=== PATIENT | male | born 1955 | race Caucasian/White ===

== ENCOUNTER → 2016-05-30 | Day surgery (SDC) | payer BC ==
[2016-05-24 11:21] VITALS: Ht 177.8 cm; Wt 136.4 kg
[~2016-05-30] VITALS: Ht 177.8 cm; Wt 136.4 kg
[~2016-05-30] MED LIST: AMOX500C3 PO; ASPI81TA28 PO; DILT-203 PO; DILT1CAP15 PO; FEXO1TAB49 PO; GLC/500 PO; LIDOCAINE HCL 2% 2 ML VIAL (20MG/ML) ONE; LISI40TA PO; OXYC-57 PO; PROPOFOL IV EMULSION 10 MG/ML 20 ML VIAL IV ONE; TADA10TA PO
--- NOTE | 2016-05-30 08:50 | Endo History and Physical ---
History & Physical Date of Service: May 30, 2016. Chief Complaint: followup colon cancer Referring Physician: Dr. Fly Huff History of Present Illness 60 yo CM who presents for colonoscopy secondary to history of colon cancer. Past Surgical History Hx Cardiac Surgery: No Hx Internal Defibrillator: No Hx Pacemaker: No Hx Abdominal Surgery: Yes (APPY, SPLEEN PROCEDURES X2) Hx of Implantable Prosthesis: No Hx Post-Op Nausea and Vomiting: No Hx Cancer Surgery: Yes (COLON RESECTION) Hx Thoracic Surgery: No Hx Orthopedic: Yes (RT TKA) Hx Urinary Tract Surgery: No Family History Colon CA Social History Smoking Status: Never Smoker Hx Substance Use: No Hx Alcohol Use: No Allergies Coded Allergies: Aminoglycosides (Verified Allergy, Unknown, LOCAL SWELLING AND RASH, ) Bacitracin (Verified Allergy, Unknown, LOCAL SWELLING AND RASH, 05/24/16) Cat Dander (Verified Allergy, Unknown, EYE SWELLING AND SNEEZING, 05/24/16) Codeine (Verified Allergy, Unknown, FLUSHING, GENERAL BODY HOT FLASHES, ) Neomycin (Verified Allergy, Unknown, LOCAL SWELLING AND RASH, 05/24/16) Polymyxin B (Verified Allergy, Unknown, LOCAL SWELLING AND RASH, 05/24/16) Current Medications Reported Home Medications Medications Dose Route/Sig Max Daily Dose Days Date Category Mely Allergy (Fexofenadine Hcl) 180 Mg Tab 1 Tab PO DAILY PRN 05/24/16 Reported Aspirin Ec (Aspirin) 81 Mg Tab 81 Mg PO QAM 05/24/16 Reported Glucophage (Metformin Hcl) 500 Mg Tab 500 Mg PO BID 05/24/16 Reported Diltiazem Cd (Diltiazem Hcl Coated Beads) 240 Mg Cap 1 Tab PO QAM 05/24/16 Reported Zestril (Lisinopril) 40 Mg Tab 40 Mg PO QAM 05/24/16 Reported Vital Signs Weight (Kilograms): 136.36 Height (Feet): 5 Height (Inches): 10 Date Time Temp Pulse Resp B/P Pulse Ox O2 Delivery O2 Flow Rate FiO2 05/30/16 08:41 36.6 66 20 143/84 95 Room Air Physical Exam General Appearance: WD/WN, no apparent distress Respiratory/Chest: Auscultation: breath sounds normal Cardiovascular: Heart Auscultation: RRR Abdomen: Bowel Sounds: normal Inspection & Palpation: soft, non-distended, no tenderness, guarding & rebound Assessment and Plan Assessment: 60 yo CM who presents for colonoscopy secondary to history of colon cancer. Plan: Proceed with colonoscopy.
--- NOTE | 2016-05-30 09:37 | Discharge Instructions ---
Endoscopy Patient Instructions Date / Procedure(s) Performed May 30, 2016. Colonoscopy Allergy Information Coded Allergies: Aminoglycosides (Verified Allergy, Unknown, LOCAL SWELLING AND RASH, ) Bacitracin (Verified Allergy, Unknown, LOCAL SWELLING AND RASH, 05/24/16) Cat Dander (Verified Allergy, Unknown, EYE SWELLING AND SNEEZING, 05/24/16) Codeine (Verified Allergy, Unknown, FLUSHING, GENERAL BODY HOT FLASHES, ) Neomycin (Verified Allergy, Unknown, LOCAL SWELLING AND RASH, 05/24/16) Polymyxin B (Verified Allergy, Unknown, LOCAL SWELLING AND RASH, 05/24/16) Discharge Date / Findings May 30, 2016. Colon polyps Diverticulosis Medication Instructions Stopped Medication(s): no Metformin since Sunday,no ASA since Sunday OK to resume all medications today as prescribed Reported Home Medications Medications Dose Route/Sig Max Daily Dose Days Date Category Mely Allergy (Fexofenadine Hcl) 180 Mg Tab 1 Tab PO DAILY PRN 05/24/16 Reported Aspirin Ec (Aspirin) 81 Mg Tab 81 Mg PO QAM 05/24/16 Reported Glucophage (Metformin Hcl) 500 Mg Tab 500 Mg PO BID 05/24/16 Reported Diltiazem Cd (Diltiazem Hcl Coated Beads) 240 Mg Cap 1 Tab PO QAM 05/24/16 Reported Zestril (Lisinopril) 40 Mg Tab 40 Mg PO QAM 05/24/16 Reported Provider Instructions Activity Restrictions - No exercising or heavy lifting for 24 hours. - Do not drink alcohol the day of the procedure. - Do not drive a car or operate machinery until the day after the procedure. - Do not make any important decisions or sign important papers in 24 hours after the procedure. Following Day: - Return to full activity which may include returning to work/school. Diet Start your diet with liquids and light foods (jello, soup, juice, toast). Then eat your usual diet if not nauseated. Treatment For Common After Affects For mild abdominal pain, bloating, or excessive gas: - Rest - Eat lightly - Lie on right side Follow-Up Information Follow-up with Dr. Fly Huff as scheduled Anesthesia Information What You Should Know You have had a procedure that required some medicine to reduce anxiety and discomfort. This treatment is called moderate sedation. After receiving the treatment, you may be sleepy, but you will be able to breathe on your own. The effects of the treatment may last for several hours. Follow these instructions along with Activity/Diet recommendations noted above: * Do NOT do anything where dizziness or clumsiness would be dangerous. * Rest quietly at home today, then you can be up and about tomorrow. * Have a responsible person stay with you the rest of today. * You may have had an I.V. today. If so, you may take the dressing off later today. Recommendations Call your doctor if: * Trouble breathing * Continuous vomiting for more than 24 hours * Temperature above 101 degrees * Severe abdominal pain or bloating * Pain not relieved by pain medicine ordered * There is increased drainage or redness from any incision * A large amount of rectal bleeding greater than 2-3 tablespoons. (If you had a polyp/s removed or have hemorrhoids, a small amount of blood - from the rectum is to be expected.) * You have any unanswered questions or concerns. IN THE EVENT OF A SERIOUS EMERGENCY, GO TO THE NEAREST EMERGENCY ROOM Your discharge instructions were prepared by provider Willy Bach. Patient Instructions Signature Page Juan Cooper Patient (or Guardian) Signature/Date: I have read and understand the instructions given to me by my caregivers. Caregiver/RN/Doctor Signature/Date: The above-named patient and/or guardian has received patient instructions on this date. + Original Patient Signature Page (only) stays with chart. Please make copy for patient.
--- NOTE | 2016-05-30 09:47 | GI REPORT ---
Procedure Date: 05/30/2016 8:50 AM Procedure: Colonoscopy Indications: High risk colon cancer surveillance: Personal history of colon cancer Medicines: Monitored Anesthesia Care Complications: No immediate complications. Estimated Blood Loss: Estimated blood loss: none. Procedure: Pre-Anesthesia Assessment: - Prior to the procedure, a History and Physical was performed, and patient medications and allergies were reviewed. The patient's tolerance of previous anesthesia was also reviewed. The risks and benefits of the procedure and the sedation options and risks were discussed with the patient. All questions were answered, and informed consent was obtained. Prior Anticoagulants: The patient has taken aspirin, last dose was 10 days prior to procedure. ASA Grade Assessment: III - A patient with severe systemic disease. After reviewing the risks and benefits, the patient was deemed in satisfactory condition to undergo the procedure. After I obtained informed consent, the scope was passed under direct vision. Throughout the procedure, the patient's blood pressure, pulse, and oxygen saturations were monitored continuously. The Scope was introduced through the anus and advanced to the terminal ileum. The colonoscopy was performed without difficulty. The patient tolerated the procedure well. The quality of the bowel preparation was good. The terminal ileum, ileocecal valve, appendiceal orifice, and rectum were photographed. Findings: Two sessile polyps were found in the transverse colon and in the ascending colon. The polyps were 5 to 8 mm in size. These polyps were removed with a hot snare. Resection and retrieval were complete. Multiple small-mouthed diverticula were found in the sigmoid colon. Non-bleeding internal hemorrhoids were found during retroflexion. The hemorrhoids were small. Impression: - Two 5 to 8 mm polyps in the transverse colon and in the ascending colon, removed with a hot snare. Resected and retrieved. - Diverticulosis in the sigmoid colon. - Non-bleeding internal hemorrhoids. Recommendation: - Resume previous diet. - Continue present medications. - Repeat colonoscopy for surveillance based on pathology results. - Return to primary care physician as previously scheduled. Willy Bach DO 05/30/2016 9:47:03 AM This report has been signed electronically. Note Initiated On: 05/30/2016 8:50 AM
--- NOTE | 2016-05-30 09:49 | Anesthesiology Progress Note ---
Anesthesia Post Op Note Date & Time May 30, 2016 at 09:49 Vital Signs Pain Intensity: 3 Vital Signs Past 12 Hours Date Time Temp Pulse Resp B/P Pulse Ox O2 Delivery O2 Flow Rate FiO2 05/30/16 09:42 63 20 143/77 97 Room Air 05/30/16 09:28 89 20 128/75 96 Room Air 05/30/16 08:41 36.6 66 20 143/84 95 Room Air Notes Mental Status: alert / awake / arousable, participated in evaluation Pt Amnestic to Procedure: Yes Nausea / Vomiting: adequately controlled Pain: adequately controlled Airway Patency, RR, SpO2: stable & adequate BP & HR: stable & adequate Hydration State: stable & adequate Anesthetic Complications: no major complications apparent
[2016-05-30 09:57] VITALS: BP 149/88; PULSE 61; O2SAT 95
== END | disposition home or self-care (01) ==
LOC: C.GI 08:17
PROVIDERS: ATTEND Internal Medicine
DX: Z08 Encounter for follow-up examination after completed treatment for malignant neoplasm (principal); D12.2 Benign neoplasm of ascending colon; D12.3 Benign neoplasm of transverse colon; K57.32 Diverticulitis of large intestine without perforation or abscess without bleeding; K64.8 Other hemorrhoids; Z85.038 Personal history of other malignant neoplasm of large intestine; Z80.0 Family history of malignant neoplasm of digestive organs; E11.9 Type 2 diabetes mellitus without complications; I10 Essential (primary) hypertension; F17.220 Nicotine dependence, chewing tobacco, uncomplicated

== ENCOUNTER 2016-05-31 02:31 | Inpatient (IN) | payer BC ==
[~2016-05-31] VITALS: Ht 177.8 cm; Wt 131.6 kg
[~2016-05-31 02:31] MED LIST changes: -AMOX500C3 PO; -DILT1CAP15 PO; -LIDOCAINE HCL 2% 2 ML VIAL (20MG/ML) ONE; -OXYC-57 PO; -PROPOFOL IV EMULSION 10 MG/ML 20 ML VIAL IV ONE; -TADA10TA PO
[2016-05-31] MEDS ORDERED: SODIUM CHLORIDE 0.9% 1000ML 1,000 ML IV STA (02:48)
[2016-05-31] MEDS ORDERED: SODIUM CHLORIDE 0.9% 1000ML 500 ML IV STA (02:48)
--- NOTE | 2016-05-31 03:32 | EMERGENCY ROOM VISIT NOTE ---
History Report prepared by Caden: Benjamin Samaniego Under the Supervision of: Dr. Canelo Chavira M.D. First contact with patient: 02:43 Chief Complaint: RECTAL BLEEDING Stated Complaint: BLEEDING RECTUM S/P COLONOSCOPY 05/30 Nursing Triage Summary: had colonoscopy on 05/30/16. pt reports he has passed blood and blood clots approx 10+ times since. pt c/o abdominal bloating. called MD and told to come for eval. History of Present Illness The patient is a 60 year old male who presents to the Emergency Room with complaints of constant rectal bleeding beginning 12 hours ago. He had a colonoscopy earlier today and had several polyps removed. He states that he went home and relaxed for most of the day. The patient states that after relaxing for a while he defecated and noticed a lot of blood and blood clots in his stool. He estimates that he has had 8-10 bowel movements since he noticed his bleeding. He denies any rectal pain, chest pain, or SOB. The patient is not on any blood thinners other than aspirin. He notes that he withheld his aspirin for his procedure. He notes that he has a history of multiple colonoscopies and has had many polyps removed but has never had similar bleeding. Source of History: patient Onset: Shortly prior to arrival Position: other (rectum) Quality: other (bleeding) Timing: constant Associated Symptoms: No SOB, No chest pain Note: The patient denies any rectal pain. Review of Systems See HPI for pertinent positives & negatives. A total of 10 systems reviewed and were otherwise negative. Past Medical & Surgical Medical Problems: (1) Hemorrhoid (2) HTN (hypertension) (3) Peptic ulcer disease Surgical Problems: (1) H/O splenectomy (2) History of appendectomy Family History No pertinent family history stated. Social History Smoking Status: Never Smoker Marital Status: Housing Status: lives with family Current/Historical Medications Scheduled Aspirin (Aspirin Ec), 81 MG PO QAM Diltiazem Hcl Coated Beads (Diltiazem Cd), 1 TAB PO QAM Lisinopril (Zestril), 40 MG PO QAM Metformin Hcl (Glucophage), 500 MG PO BID Scheduled PRN Fexofenadine Hcl (Mely Allergy), 1 TAB PO DAILY PRN for ALLERGIES Allergies Coded Allergies: Aminoglycosides (Verified Allergy, Unknown, LOCAL SWELLING AND RASH, ) Bacitracin (Verified Allergy, Unknown, LOCAL SWELLING AND RASH, 05/31/16) Cat Dander (Verified Allergy, Unknown, EYE SWELLING AND SNEEZING, 05/31/16) Codeine (Verified Allergy, Unknown, FLUSHING, GENERAL BODY HOT FLASHES, ) Neomycin (Verified Allergy, Unknown, LOCAL SWELLING AND RASH, 05/31/16) Polymyxin B (Verified Allergy, Unknown, LOCAL SWELLING AND RASH, 05/31/16) Physical Exam Vital Signs Date Time Temp Pulse Resp B/P Pulse Ox O2 Delivery O2 Flow Rate FiO2 05/31/16 04:39 67 24 116/76 94 Room Air 05/31/16 03:21 71 05/31/16 03:14 94 Room Air 05/31/16 02:38 36.9 83 20 128/86 95 Room Air Physical Exam GENERAL: Patient is in no acute distress. HEENT: No acute trauma, normocephalic atraumatic, mucous membranes moist, no nasal congestion, no scleral icterus. NECK: No stridor, no adenopathy, no meningismus, trachea is midline. LUNGS: Clear to auscultation bilaterally, no wheeze, no rhonchi, breath sounds equal. HEART: Without murmurs gallops or rubs, regular rate and rhythm. ABDOMEN: Soft, nontender, bowel sounds positive, no hernias, no peritonitis. RECTAL: Maroon colored blood rectally. No external source for bleeding. EXTREMITIES: No cyanosis or edema, full range of motion of all the joints without pain or difficulty, no signs for acute trauma. NEUROLOGIC: Oriented x 3, no acute motor or sensory deficits, no focal weakness. SKIN: No rash, no jaundice, no diaphoresis. Medical Decision & Procedures Laboratory Results 05/31/16 03:19 05/31/16 03:19 Test 05/31/16 03:19 Red Blood Count 4.74 M/uL (4.7-6.1) Mean Corpuscular Volume 86.7 fL (80-100) Mean Corpuscular Hemoglobin 30.0 pg (25-34) Mean Corpuscular Hemoglobin Concent 34.5 g/dl (32-36) RDW Standard Deviation 42.1 fL (36.4-46.3) RDW Coefficient of Variation 13.2 % (11.5-14.5) Mean Platelet Volume 10.8 fL (7.4-10.4) Prothrombin Time 10.8 SECONDS (9.0-12.0) Prothromb Time International Ratio 1.0 (0.9-1.1) Activated Partial Thromboplast Time 28.1 SECONDS (21.0-31.0) Partial Thromboplastin Ratio 1.1 Anion Gap 12.0 mmol/L (3-11) Est Creatinine Clear Calc Drug Dose 117.4 ml/min Estimated GFR () 106.2 Estimated GFR (Non- 91.6 BUN/Creatinine Ratio 21.1 (10-20) Calcium Level 8.5 mg/dl (8.5-10.1) Laboratory results reviewed by me. Medications Administered Medications (Trade) Dose Ordered Sig/Gisele Route Start Time Stop Time Status Last Admin Dose Admin Sodium Chloride 500 ml @ 999 mls/hr Q31M STAT IV 05/31/16 02:48 05/31/16 03:18 DC 05/31/16 02:48 999 MLS/HR Sodium Chloride (Nss 1000ml) 1,000 ml @ 200 mls/hr Q5H STAT IV 05/31/16 02:48 05/31/16 07:47 05/31/16 03:42 200 MLS/HR ED Course 0243: The patient was evaluated in room B11B. A complete history and physical exam was performed. 0248: Ordered NSS 1000 ml @ 200 mL/hr IV, NSS 500 mL @ 999 mL/hr IV. 0403: Upon reexamination the patient is resting comfortably. I discussed results and treatment plan with the patient. He verbalizes agreement and understanding. The patient will be evaluated for further management. Medical Decision The patient is a 60 year old male who presents to the ED with complaints of rectal bleeding. Differential diagnoses considered include bleeding from polyp site, anemia, electrolyte imbalance, coagulopathy, dehydration, hemorrhoids, as well as other etiologies were considered. There is no leukocytosis or concerning anemia. No significant electrolyte abnormality or kidney failure. There is no coagulopathy. On exam, the patient had dark maroon colored blood rectally, no external source for bleeding. He was not in pain, he was not hypotensive or tachycardic. There was no chest pain and there was no dyspnea or weakness. The patient received IV saline, he was kept nothing by mouth. I spoke with the on-call GI physician. Admission/observation was warranted. I talked to case management. I talked to the patient about all my findings. The on-call hospitalist was consulted. Consults Time Called: 024 Consulting Physician: Dr. Radha GonzalezGI Returned Call: 035 Discussed the patient's case. Dr. Garcia recommends that the patient be observed to see if he stops bleeding. If he does not, a follow up colonoscopy will be conducted. Additional Consults: Time Called: 040 Consulted Physician: [facility]. [facility] [place] Returned Call: 040 Additional Comments: Discussed the patient's case. The patient will be evaluated for further management. Impression Primary Impression: GI bleed Additional Impression: S/P colonoscopy Scribe Attestation The scribe's documentation has been prepared under my direction and personally reviewed by me in its entirety. I confirm that the note above accurately reflects all work, treatment, procedures, and medical decision making performed by me. Departure Information Dispostion Being Evaluated By Hospitalist Referrals Fly Huff M.D. (PCP) Patient Instructions My [facility] Problem Qualifiers
[2016-05-31 03:35] LABS: HEMATOCRIT 41.1 % (42-52); MEAN CELL VOLUME 86.7 fL (80-100); MEAN CORPUSCULAR HGB CONC 34.5 g/dl (32-36); MEAN PLATELET VOLUME 10.8 fL (7.4-10.4); PLATELET COUNT 368 K/uL (130-400); RED BLOOD COUNT 4.74 M/uL (4.7-6.1); WHITE BLOOD COUNT 8.51 K/uL (4.8-10.8)
[2016-05-31 03:45] LABS: PARTIAL THROMBOPLASTIN RATIO 1.1; PROTHROMBIN TIME (PATIENT) 10.8 SECONDS (9.0-12.0)
[2016-05-31 03:50] LABS: BUN/CREATININE RATIO 21.1 (10-20); CALCIUM 8.5 mg/dl (8.5-10.1); CREATININE 0.89 mg/dl (0.60-1.40); POTASSIUM 4.2 mmol/L (3.5-5.1)
[2016-05-31] MEDS ORDERED: ONDANSETRON INJ 2 MG/ML 2 ML VIAL IV PRN (06:30)
[2016-05-31] MEDS ORDERED: ACETAMINOPHEN 325 MG TAB PO PRN (06:30)
--- NOTE | 2016-05-31 06:37 | History and Physical ---
History & Physical Date & Time of Service: May 31, 2016 at 06:29 Chief Complaint: Bleeding Rectum S/P Colonoscopy 05/30 Primary Care Physician: Fly Huff M.D. History of Present Illness Source: patient 60 y/o M Hx colon CA, NIDDM who had undergone a colonoscopy with removal of 2 polyps one day prior. Pt developed copious BRBPR following D/C home and presented for evaluation. Denies abd pain, SOB, light head. His Hb is currently WNL. He is admitted by request of GI for active bleeding. Past Medical/Surgical History Medical Problems: (1) Hemorrhoid Status: Resolved (2) HTN (hypertension) Status: Chronic (3) Peptic ulcer disease Status: Chronic 4) NIDDM 5) Colon CA - surgically resected Surgical Problems: (1) H/O splenectomy Status: Resolved (2) History of appendectomy Status: Resolved 3) R TKA 4) Colonoscopy with polypectomy x 2 Social History Smoking Status: Never Smoker Marital Status: Immunizations History of Influenza Vaccine: No History of Tetanus Vaccine?: Yes History of Pneumococcal: No History of Hepatitis B Vaccine: Unknown Multi-Drug Resistant Organisms History of MDRO: No Allergies Coded Allergies: Aminoglycosides (Verified Allergy, Unknown, LOCAL SWELLING AND RASH, ) Bacitracin (Verified Allergy, Unknown, LOCAL SWELLING AND RASH, 05/31/16) Cat Dander (Verified Allergy, Unknown, EYE SWELLING AND SNEEZING, 05/31/16) Codeine (Verified Allergy, Unknown, FLUSHING, GENERAL BODY HOT FLASHES, ) Neomycin (Verified Allergy, Unknown, LOCAL SWELLING AND RASH, 05/31/16) Polymyxin B (Verified Allergy, Unknown, LOCAL SWELLING AND RASH, 05/31/16) Home Medications Scheduled Aspirin (Aspirin Ec), 81 MG PO QAM Diltiazem Hcl Coated Beads (Diltiazem Cd), 1 TAB PO QAM Lisinopril (Zestril), 40 MG PO QAM Metformin Hcl (Glucophage), 500 MG PO BID Scheduled PRN Fexofenadine Hcl (Mely Allergy), 1 TAB PO DAILY PRN for ALLERGIES Review of Systems Constitutional: No chills, No fever, No sweats Eyes: No eye pain, No worsening of vision ENT: No hearing loss, No nasal symptoms, No unusual epistaxis Respiratory: No cough, No sputum, No wheezing Cardiovascular: No PND, No chest pain, No edema, No orthopnea Abdomen: + GI bleeding, No nausea, No pain, No vomiting Musculoskeletal: No joint pain, No muscle pain Genitourinary - Male: No dysuria, No hematuria Neurologic: No memory loss, No paralysis Psychiatric: No depression symptoms Endocrine: No fatigue Hematologic / Lymphatic: No abnormal bleeding/bruising Integumentary: No rash Allergic / Immunologic: No environmental allergies Physical Exam Vital Signs Date Time Temp Pulse Resp B/P Pulse Ox O2 Delivery O2 Flow Rate FiO2 05/31/16 04:39 67 24 116/76 94 Room Air 05/31/16 03:21 71 05/31/16 03:14 94 Room Air 05/31/16 02:38 36.9 83 20 128/86 95 Room Air General Appearance: WD/WN, no apparent distress Head: normocephalic, atraumatic Eyes: normal inspection, EOMI ENT: normal ENT inspection, pharynx normal Neck: supple, no JVD Respiratory/Chest: chest non-tender, lungs clear, normal breath sounds, no respiratory distress, no accessory muscle use Cardiovascular: regular rate, rhythm, no edema, no gallop, no JVD, no murmur, normal peripheral pulses Abdomen/GI: normal bowel sounds, non tender, soft Extremities/Musculoskelatal: normal inspection, no calf tenderness, normal capillary refill, no pedal edema, normal range of motion Neurologic/Psych: diamond picker II-XII nml as tested, no motor/sensory deficits, alert, normal mood/affect, normal reflexes, oriented x 3 Skin: normal color, warm/dry, no rash Diagnostics Laboratory Results Results Past 24 Hours Test 05/31/16 03:19 Range/Units White Blood Count 8.51 4.8-10.8 K/uL Red Blood Count 4.74 4.7-6.1 M/uL Hemoglobin 14.2 14.0-18.0 g/dL Hematocrit 41.1 42-52 % Mean Corpuscular Volume 86.7 80-100 fL Mean Corpuscular Hemoglobin 30.0 25-34 pg Mean Corpuscular Hemoglobin Concent 34.5 32-36 g/dl RDW Standard Deviation 42.1 36.4-46.3 fL RDW Coefficient of Variation 13.2 11.5-14.5 % Platelet Count 368 130-400 K/uL Mean Platelet Volume 10.8 7.4-10.4 fL Prothrombin Time 10.8 9.0-12.0 SECONDS Prothromb Time International Ratio 1.0 0.9-1.1 Activated Partial Thromboplast Time 28.1 21.0-31.0 SECONDS Partial Thromboplastin Ratio 1.1 Sodium Level 141 136-145 mmol/L Potassium Level 4.2 3.5-5.1 mmol/L Chloride Level 108 98-107 mmol/L Carbon Dioxide Level 21 21-32 mmol/L Anion Gap 12.0 3-11 mmol/L Blood Urea Nitrogen 19 7-18 mg/dl Creatinine 0.89 0.60-1.40 mg/dl Est Creatinine Clear Calc Drug Dose 117.4 ml/min Estimated GFR () 106.2 Estimated GFR (Non- 91.6 BUN/Creatinine Ratio 21.1 10-20 Random Glucose 161 70-99 mg/dl Calcium Level 8.5 8.5-10.1 mg/dl Impression Assessment and Plan 60 y/o M Hx colon CA, NIDDM who had undergone a colonoscopy with removal of 2 polyps one day prior. Pt developed copious BRBPR following D/C home and presented for evaluation. Denies abd pain, SOB, light head. His Hb is currently WNL. He is admitted by request of GI for active bleeding. 1) GI bleed - post polypectomy - NPO, observe on med floor - serial Hb - GI consult 2) NIDDM - slding scale in hospital 3) HTN - cont Lisinopril and Diltiazem with parameters Total time for this admit inclusing review of records, labs, med rec - discussion with pt and ER attending 32 min Level of Care Med/Surg Resuscitation Status FULL RESUSCITATION VTE Prophylaxis VTE Risk Assessment Done? Y/N: Yes Risk Level: Moderate Given or contraindicated: SCD's, Contraindicated
[2016-05-31 06:49] VITALS: O2SAT 95; Ht 177.8 cm; Wt 131.6 kg
[2016-05-31 07:22] VITALS: O2SAT 95
[2016-05-31] MEDS: SODIUM CHLORIDE 0.9% 1000ML 1,000 ML IV SCH ×2 (07:30→17:16)
[2016-05-31 07:36] VITALS: BP 115/67; PULSE 72; TEMP 36.9; O2SAT 93
[2016-05-31] MEDS ORDERED: DEXTROSE 50% 50 ML SYR IV PRN (08:15)
[2016-05-31] MEDS ORDERED: GLUCOSE 40% GEL 15 GM TUBE PO PRN (08:15)
[2016-05-31] MEDS ORDERED: GLUCOSE 10 TABS/TUBE PO PRN (08:15)
[2016-05-31] MEDS ORDERED: GLUCAGON FOR INJ 1 MG VIAL SQ PRN (08:15)
[2016-05-31] MEDS: LISINOPRIL 40 MG TAB PO SCH (10:16)
[2016-05-31] MEDS: DILTIAZEM HCL 240 MG CAPCR PO SCH (10:17)
--- NOTE | 2016-05-31 10:46 | Gastrointestinal Consultation ---
Gastrointestinal Consultation Date of Consultation: May 31, 2016 Attending Physician: Dr. Manning Consulting Physician: Dr. Bach/LÁZARO Obrien Reason for Consultation: Rectal bleeding History of Present Illness Patient is a 60 year old male with a history of rectal cancer who underwent a screening colonoscopy yesterday by Dr. Bach as an outpatient. He did have two small polyps removed (between 5-8 mm) during the procedure, one in the transverse and one in the ascending colon. Patient reports that after the procedure, he did eat a hoagie sandwich and soon after developed some mild abdominal cramping and passed a bowel movement that had some bright red blood mixed with blood clots. The amount was small. Throughout the evening, he reports that he passed a blood and clots approximately every two hours. He was concerned about continued bleeding and presented to the ER for further evaluation of symptoms. Upon arrival, he was noted to have a hemoglobin of 14.2 with a repeat hemoglobin of 13.5 this morning. The patient states the last episode of bleeding was at approximately 0300 this morning. Currently, he denies any abdominal pain, rectal bleeding, nausea or vomiting, fever or chills or other complaints. He has remained NPO since arrival. Upon further questioning , the patient denies any anticoagulation therapy or NSAID use. He is only taking a low dose aspirin daily. Past Medical/Surgical History Medical Problems: (1) GI bleed Status: Acute Social History Problems: (1) S/P colonoscopy Status: Acute Past Medical History: 1. Bronchitis 2. Conjunctivitis 3. Diabetes mellitus 4. Hypercholesterolemia 5. Hypertension 6. Sexual dysfunction 7. Rectal cancer 8. PUD 9. Tubular adenomas Past Surgical History: 1. Appendectomy 2. Knee replacement surgery 3. Colonoscopy 4. Rectal surgery 5. Small bowel resection 6. Splenectomy 7. Umbilical hernia repair Family History Negative for GI malignancy and IBD Social History Smoking Status: Never Smoker Alcohol Use: none Drug Use: none Marital Status: Housing Status: lives with family Occupation Status: retired Allergies Coded Allergies: Aminoglycosides (Verified Allergy, Unknown, LOCAL SWELLING AND RASH, ) Bacitracin (Verified Allergy, Unknown, LOCAL SWELLING AND RASH, 05/31/16) Cat Dander (Verified Allergy, Unknown, EYE SWELLING AND SNEEZING, 05/31/16) Codeine (Verified Allergy, Unknown, FLUSHING, GENERAL BODY HOT FLASHES, ) Neomycin (Verified Allergy, Unknown, LOCAL SWELLING AND RASH, 05/31/16) Polymyxin B (Verified Allergy, Unknown, LOCAL SWELLING AND RASH, 05/31/16) Current Medications Home Meds and Scripts Medications Dose Route/Sig Max Daily Dose Days Date Category Mely Allergy (Fexofenadine Hcl) 180 Mg Tab 1 Tab PO DAILY PRN 05/24/16 Reported Aspirin Ec (Aspirin) 81 Mg Tab 81 Mg PO QAM 05/24/16 Reported Glucophage (Metformin Hcl) 500 Mg Tab 500 Mg PO BID 05/24/16 Reported Diltiazem Cd (Diltiazem Hcl Coated Beads) 240 Mg Cap 1 Tab PO QAM 05/24/16 Reported Zestril (Lisinopril) 40 Mg Tab 40 Mg PO QAM 05/24/16 Reported Review of Systems See HPI for pertinent positives & negatives. A total of 10 systems reviewed and were otherwise negative. Physical Exam Date Time Temp Pulse Resp B/P Pulse Ox O2 Delivery O2 Flow Rate FiO2 05/31/16 07:36 36.9 72 18 115/67 93 Room Air 05/31/16 07:22 81 14 109/75 95 05/31/16 06:49 95 Room Air 05/31/16 06:48 72 05/31/16 06:34 79 14 110/57 95 Room Air 05/31/16 04:39 67 24 116/76 94 Room Air 05/31/16 03:21 71 05/31/16 03:14 94 Room Air 05/31/16 02:38 36.9 83 20 128/86 95 Room Air General Appearance: WD/WN, no apparent distress Eyes: EOMI ENT: hearing grossly normal Neck: supple Respiratory/Chest: lungs clear, normal breath sounds, no respiratory distress Cardiovascular: regular rate, rhythm, no gallop, no murmur Abdomen: normal bowel sounds, non tender, soft Extremities: normal inspection Neurologic/Psych: alert, normal mood/affect, oriented x 3 Skin: no jaundice, warm/dry Laboratory Results Last 24 Hours Test 05/31/16 03:19 05/31/16 06:45 05/31/16 08:07 White Blood Count 8.51 K/uL Red Blood Count 4.74 M/uL Hemoglobin 14.2 g/dL 13.5 g/dL Hematocrit 41.1 % Mean Corpuscular Volume 86.7 fL Mean Corpuscular Hemoglobin 30.0 pg Mean Corpuscular Hemoglobin Concent 34.5 g/dl RDW Standard Deviation 42.1 fL RDW Coefficient of Variation 13.2 % Platelet Count 368 K/uL Mean Platelet Volume 10.8 fL Prothrombin Time 10.8 SECONDS Prothromb Time International Ratio 1.0 Activated Partial Thromboplast Time 28.1 SECONDS Partial Thromboplastin Ratio 1.1 Sodium Level 141 mmol/L Potassium Level 4.2 mmol/L Chloride Level 108 mmol/L Carbon Dioxide Level 21 mmol/L Anion Gap 12.0 mmol/L Blood Urea Nitrogen 19 mg/dl Creatinine 0.89 mg/dl Est Creatinine Clear Calc Drug Dose 117.4 ml/min Estimated GFR () 106.2 Estimated GFR (Non- 91.6 BUN/Creatinine Ratio 21.1 Random Glucose 161 mg/dl Calcium Level 8.5 mg/dl Hepatitis C Antibody Screen NEG Bedside Glucose 131 mg/dl Impression Patient is a 60 year old male with a history of tubular adenomas and rectal cancer presenting with rectal bleeding status post colonoscopy yesterday with polypectomy most consistent with post-polypectomy bleeding. Plan 1. Keep NPO until evaluated by Dr. Bach later today. 2. Bleeding has resolved. Continue to monitor for any returning symptoms or significant anemia. 3. No plan for repeat colonoscopy unless returning bleeding or notable drop in H &H. Agree with LÁZARO Obrien as above Abd: Soft, NT, ND, +BS No Overt bleeding at this time Advance diet as tolerated
[2016-05-31] MEDS: INSULIN ASPART 100 UNITS/ML 3 ML PEN SC SCH ×2 (13:16→18:00)
--- NOTE | 2016-05-31 14:39 | Progress Note ---
Progress Note pt seen and examed, 60 y/o M Hx colon CA, NIDDM who had undergone a colonoscopy with removal of 2 polyps one day prior. Pt developed copious BRBPR following D/C home and presented for evaluation. Denies abd pain, SOB, light head. His Hb is currently WNL. Sitting up in chair, no dizziness no any other complaining 1) GI bleed - post polypectomy - NPO, observe on med floor - serial Hb - GI consulted 2) NIDDM - slding scale in hospital 3) HTN - cont Lisinopril and Diltiazem with parameters \
[2016-05-31 15:00] VITALS: BP 126/77; PULSE 59; TEMP 36.3; O2SAT 94
--- NOTE | 2016-05-31 15:00 | Hospitalist Progress Note ---
Hospitalist Progress Note Date of Service May 31, 2016. Subjective Pt evaluation today including: conversation w/ patient, physical exam, chart review, lab review PO Intake: NPO Voiding: no voiding problems Patient reports feeling well. He states that he has not had another bowel movement or jan blood since around 3 am this morning. He denies any weakness or fatigue. The patient denies fevers, chills, sweats, lightheadedness, loss of consciousness, chest pain, palpitations, claudication, cough, wheezing, shortness of breath, nausea, vomiting, abdominal pain, diarrhea, jan blood, dysuria, hematuria, urinary retention, paralysis, weakness, numbness and tingling. Additional Comments: See HPI for pertinent positives and negatives. All other systems reviewed and negative. Objective Vital Signs Date Time Temp Pulse Resp B/P Pulse Ox O2 Delivery O2 Flow Rate FiO2 05/31/16 07:36 36.9 72 18 115/67 93 Room Air 05/31/16 07:22 81 14 109/75 95 05/31/16 06:49 95 Room Air 05/31/16 06:48 72 05/31/16 06:34 79 14 110/57 95 Room Air 05/31/16 04:39 67 24 116/76 94 Room Air 05/31/16 03:21 71 05/31/16 03:14 94 Room Air 05/31/16 02:38 36.9 83 20 128/86 95 Room Air Physical Exam General Appearance: WD/WN, no apparent distress, + obese (morbidly) Eyes: normal inspection, PERRL, EOMI ENT: normal ENT inspection, hearing grossly normal, pharynx normal Neck: supple, no JVD, trachea midline Respiratory/Chest: lungs clear, normal breath sounds, no respiratory distress, + decreased breath sounds Cardiovascular: regular rate, rhythm, no gallop, no murmur Abdomen: normal bowel sounds, non tender, soft Extremities: normal range of motion, normal inspection, no pedal edema Neurologic/Psychiatric: alert, normal mood/affect, oriented x 3 Skin: normal color, warm/dry, no rash Laboratory Results Last 24 Hours Test 05/31/16 03:19 05/31/16 06:45 05/31/16 08:07 05/31/16 11:54 White Blood Count 8.51 K/uL Red Blood Count 4.74 M/uL Hemoglobin 14.2 g/dL 13.5 g/dL Hematocrit 41.1 % Mean Corpuscular Volume 86.7 fL Mean Corpuscular Hemoglobin 30.0 pg Mean Corpuscular Hemoglobin Concent 34.5 g/dl RDW Standard Deviation 42.1 fL RDW Coefficient of Variation 13.2 % Platelet Count 368 K/uL Mean Platelet Volume 10.8 fL Prothrombin Time 10.8 SECONDS Prothromb Time International Ratio 1.0 Activated Partial Thromboplast Time 28.1 SECONDS Partial Thromboplastin Ratio 1.1 Sodium Level 141 mmol/L Potassium Level 4.2 mmol/L Chloride Level 108 mmol/L Carbon Dioxide Level 21 mmol/L Anion Gap 12.0 mmol/L Blood Urea Nitrogen 19 mg/dl Creatinine 0.89 mg/dl Est Creatinine Clear Calc Drug Dose 117.4 ml/min Estimated GFR () 106.2 Estimated GFR (Non- 91.6 BUN/Creatinine Ratio 21.1 Random Glucose 161 mg/dl Calcium Level 8.5 mg/dl Hepatitis C Antibody Screen NEG Bedside Glucose 131 mg/dl 105 mg/dl Test 05/31/16 12:23 Hemoglobin 13.5 g/dL Assessment and Plan 60 y/o male with a history of colon cancer, DM II, HTN, hemorrhoids, and peptic ulcer disease presents to the ED on 05/31 with rectal bleeding. The patient had a screening colonoscopy done as an outpatient on 05/[address] Bach. The patient had some polyps removed at that time. He went home and later developed diarrhea with both bright red blood and dark, clotted blood. He states that he had about 8-10 bowel movements in the 12 hours following the procedure, prompting him to be evaluated in the ED. Pt was not tachycardic or hypotensive upon arrival, and initial Hgb was stable at 14.2. Rectal bleeding -Admitted to med/surg -Check serial H&H q6h x 4 -GI consulted, appreciate recs: pt will be kept NPO until Dr. Bach evaluates today. No repeat colonoscopy at this time unless bleeding starts again or there is a significant drop in H&H -Pt NPO for now -IVF hydration with NSS at 100 cc/hr -Hold ASA Diabetes mellitus type 2--Last HgbA1c checked 01/05/16 was 7.2 -Hold metformin -Insulin sliding scale -Check BSGs q ac and qhs -Recheck HgbA1c HTN--stable -Continue lisinopril 40 mg PO qd and diltiazem 240 mg PO qd GI prophylaxis -Maalox Max 15 mL PO q4h prn dyspepsia -Milk of magnesia 30 mL PO q6h prn constipation -Miralax 17 gm PO qd prn constipation -Zofran 4 mg IV q6h prn nausea DVT prophylaxis -JOSE russo and SCDs Code Status -Level I, FULL RESUSCITATION STATUS
[2016-05-31 22:59] VITALS: BP 121/79; PULSE 57; TEMP 36.5; O2SAT 96
[2016-05-31] MEDS ORDERED: NURSING VERBAL MED ORDER ONE (23:00)
[2016-06-01] MEDS: SODIUM CHLORIDE 0.9% 1000ML 1,000 ML IV SCH (02:45)
[2016-06-01 07:07] VITALS: BP 122/73; PULSE 55; TEMP 36.4; O2SAT 95
[2016-06-01] MEDS ORDERED: INSULIN ASPART 100 UNITS/ML 3 ML PEN SC SCH (08:00)
[2016-06-01] MEDS: LISINOPRIL 40 MG TAB PO SCH (08:45)
[2016-06-01] MEDS: DILTIAZEM HCL 240 MG CAPCR PO SCH (08:46)
--- NOTE | 2016-06-01 09:20 | Discharge Instructions ---
Discharge Instructions Admission Reason for Admission: Gi Bleed Discharge Discharge Diagnosis / Problem: post-polypectomy bleeding Discharge Goals Goal(s): Decrease discomfort, Improve function, Increase independence, Improve disease control, Improve nutritional status, Learn about illness, Diagnostic testing, Therapeutic intervention, Prevent Disease Progression, Specific goals Activity Recommendations Activity Limitations: resume your previous activity Lifting Limitations: none Exercise/Sports Limitations: none May Resume Sexual Activity: when tolerated Shower/Bathe: no limitations Driving or Machine Use: no limitations . Instructions / Follow-Up Instructions / Follow-Up you have rectal bleeding status post colonoscopy which is resolved you have a history of tubular adenomas and rectal cancer and recent colonoscope by Dr. Bach, please follow up with him as instructed, also need to follow up his instruction about how long to continue hold of aspirin, I would recommend to continue hold Aspirin until you see by your primary care physician in 5-7 days - you need to follow up with your primary care physician in 1 week, - take medication as instructed, never overdose or any misuse, or take with alcohol, because misuse of medicine may cause organ damage or , call your primary care physician if have questions of medicaitons. - call your primary care physician OR go to local emergency room if has any fever/chill, chest pain, shortness of breathing, dizziness, rectal bleeding, nausea/vomiting/abdominal pain, facial droop/slurry speech/local weakness, or if has any questions. - fall precaution - diet as instructed - you need to follow up with your subspecialist - you should understand that it is important to follow up the above instruction , and "not following the above instruction" may cause delayed or missed care of your medical conditions which may cause permanent organ damage and even . Current Hospital Diet Patient's current hospital diet: Diabetes Type 2 Diet Discharge Diet Recommended Diet: Diabetes Type 2 Diet Procedures Procedures Performed: no Pending Studies Studies pending at discharge: no Medical Emergencies . Who to Call and When: Medical Emergencies: If at any time you feel your situation is an emergency, please call 911 immediately. . Non-Emergent Contact Non-Emergency issues call your: Primary Care Provider, Assistant Quality Manager . . "Provider Documentation" section prepared by Donny Frey. VTE Core Measure Inpt VTE Proph given/why not?: SCD's, Contraindicated
--- NOTE | 2016-06-01 09:24 | Discharge Summary ---
Discharge Summary Admission Date: May 31, 2016 at 06:24 Discharge Date: Jun 01, 2016 Discharge Disposition: Home Principal Diagnosis: rectal bleeding status post colonoscopy Problems/Secondary Diagnoses: history of tubular adenomas and rectal cancer and recent colonoscope DMII Immunizations: Have You Had Influenza Vaccine: No History of Tetanus Vaccine?: Yes History of Pneumococcal: No History of Hepatitis B Vaccine: Unknown Procedures: no Consultations: GI Medication Reconciliation Continued Medications: Aspirin (Aspirin Ec) 81 Mg Tab 81 MG PO QAM Diltiazem Hcl Coated Beads (Diltiazem Cd) 240 Mg Cap 1 TAB PO QAM Fexofenadine Hcl (Mely Allergy) 180 Mg Tab 1 TAB PO DAILY PRN for ALLERGIES Lisinopril (Zestril) 40 Mg Tab 40 MG PO QAM Metformin Hcl (Glucophage) 500 Mg Tab 500 MG PO BID Discharge Exam Out of bed, and walk, no dizziness, refuse all the lab and blood testing from last night, no other complaint, no more rectal bleeding, is passing gas Review of Systems: Constitutional: No chills, No fatigue, No fever, No problem reported, No sweats, No weakness, No weight loss Eyes: No diplopia, No discharge, No eye pain, No problem reported, No redness, No worsening of vision ENT: No dental problems, No hearing loss, No nasal symptoms, No problem reported, No sore throat, No tinnitus, No trouble swallowing, No unusual epistaxis Respiratory: No cough, No dyspnea at rest, No dyspnea on exertion, No hemoptysis, No problem reported, No shortness of breath, No sputum, No wheezing Cardiovascular: No PND, No chest pain, No claudication, No edema, No orthopnea, No palpitations, No problem reported Abdomen: No GI bleeding, No constipation, No diarrhea, No nausea, No pain, No problem reported, No vomiting Musculoskeletal: No calf pain, No joint pain, No muscle pain, No problem reported, No swelling Genitourinary - Male: No dysuria, No hematuria, No impotence, No lesions, No penile discharge, No problem reported, No urinary frequency, No urinary hesitancy, No urinary incontinence, No urinary retention, No urinary urgency Neurologic: No balance problems, No memory loss, No numbness/tingling, No paralysis, No problem reported, No vertigo, No weakness Psychiatric: No anhedonism, No anxiety, No depression symptoms, No insomnia , No problem reported, No substance abuse Endocrine: No excessive thirst, No excessive urination, No fatigue, No problem reported Hematologic / Lymphatic: No abnormal bleeding/bruising, No clotting problems , No night sweats, No problem reported, No swollen lymph nodes Integumentary: No bleeding, No color change, No itch, No new/changing skin lesions, No problem reported, No rash Physical Exam: General Appearance: WD/WN, no apparent distress, + obese, + pertinent finding (color looks good, no any pale or anemia signs) Eyes: normal inspection, PERRL, EOMI ENT: normal ENT inspection, hearing grossly normal Neck: supple, no adenopathy Respiratory/Chest: chest non-tender, normal breath sounds, no respiratory distress, no accessory muscle use, + decreased breath sounds Cardiovascular: regular rate, rhythm, no edema, no gallop, no JVD Abdomen / GI: normal bowel sounds, non tender, no organomegaly, no pulsatile mass Extremities: normal inspection, no calf tenderness, normal capillary refill , no pedal edema, normal range of motion Neurologic/Psychiatric: scientific writer II-XII nml as tested, no motor/sensory deficits , alert, normal mood/affect, normal reflexes, oriented x 3 Skin: normal color, warm/dry, no rash Hospital Course 60 y/o male with a history of colon cancer, DM II, HTN, hemorrhoids, and peptic ulcer disease presents to the ED on 05/31 2016 with rectal bleeding. He was admitted after the ER visit The patient with history of tubular adenomas and rectal cancer and recent colonoscope had a screening colonoscopy done as an outpatient on 05/[address] Bach. The patient had some polyps removed at that time. He went home and later developed diarrhea with both bright red blood and dark, clotted blood. He states that he had about 8-10 bowel movements in the 12 hours following the procedure, prompting him to be evaluated in the ED. Pt was no tachycardic or hypotensive upon arrival, and initial Hgb was stable at 14.2. Rectal bleeding -Admitted to med/surg -Check serial H&H q6h x 4, in the beginning hemoglobin was stable, later he declined to have any blood testing from yesterday and today, in this morning he continued to decline blood test. -GI consulted, appreciate recs: Dr. Bach evaluates yesterday , no repeat colonoscopy at this time unless bleeding starts again or there is a significant drop in H&H, however patient declined blood testing -Pt was on NPO, which was stopped and resumed type II diabetic diet from last p.m., he tolerated well -Was on IVF hydration with NSS at 100 cc/hr -Hold ASA Diabetes mellitus type 2--Last HgbA1c checked 01/05/16 was 7.2 -Hold metformin -Insulin sliding scale -Check BSGs q ac and qhs -Recheck HgbA1c HTN--stable -Continue lisinopril 40 mg PO qd and diltiazem 240 mg PO qd GI prophylaxis -Maalox Max 15 mL PO q4h prn dyspepsia -Milk of magnesia 30 mL PO q6h prn constipation -Miralax 17 gm PO qd prn constipation -Zofran 4 mg IV q6h prn nausea DVT prophylaxis -JOSE russo and SCDs Code Status -Level I, FULL RESUSCITATION STATUS Like I mentioned, the patient's rectal bleeding has stopped, his color looks good, up and walk, no dizziness, no abdominal pain, however he declined blood testing. I told him that refuse of blood testing will cause not able to follow -up the anemia and HB levels , which may cause severe consequences, also I told him the benefit of blood testing will be good to know his current level of hemoglobin, and we able to compare in case he has continue HB drop dropping the future, however patient continued to decline and he want to take on the consequence by himself. He can go home if Dr. Bach agree, , with present of RN I have the above discussion. Discharge introduction you have rectal bleeding status post colonoscopy which is resolved you have a history of tubular adenomas and rectal cancer and recent colonoscope by Dr. Bach, please follow up with him as instructed, also need to follow up his instruction about how long to continue hold of aspirin, I would recommend to continue hold Aspirin until you see by your primary care physician in 5-7 days - you need to follow up with your primary care physician in 1 week, - take medication as instructed, never overdose or any misuse, or take with alcohol, because misuse of medicine may cause organ damage or , call your primary care physician if have questions of medicaitons. - call your primary care physician OR go to local emergency room if has any fever/chill, chest pain, shortness of breathing, dizziness, rectal bleeding, nausea/vomiting/abdominal pain, facial droop/slurry speech/local weakness, or if has any questions. - fall precaution - diet as instructed - you need to follow up with your subspecialist - you should understand that it is important to follow up the above instruction , and "not following the above instruction" may cause delayed or missed care of your medical conditions which may cause permanent organ damage and even . This includes examination of the patient, discharge planning, medication reconciliation, and communication with other providers. Discharge Instructions Please refer to the electronic Patient Visit Report (Discharge Instructions) for additional information. Additional Copies To Willy Bach D.O.; Fly Huff M.D.
--- NOTE | 2016-06-01 09:30 | Gastroenterology Progress Note ---
Progress Note Date of Service: Jun 01, 2016 Subjective Pt evaluation today including: conversation w/ patient, physical exam, lab review, review of inpatient medication list Patient reports no further bleeding since admission. Tolerating diet. No abdominal pain, n/v, diarrhea or other GI complaints. Tolerating diet. Declined laboratory testing this morning. Review of Systems Constitutional: No problem reported Abdomen: + see HPI Psych: No problem reported Medications Current Inpatient Medications Medications (Trade) Dose Ordered Sig/Gisele Route Start Time Stop Time Status Last Admin Dose Admin Diltiazem HCl (Cardizem Cd Cap) 240 mg QAM PO 05/31/16 09:00 06/30/16 08:59 06/01/16 08:46 240 MG Lisinopril (Zestril Tab) 40 mg QAM PO 05/31/16 09:00 06/30/16 08:59 06/01/16 08:45 40 MG Acetaminophen (Tylenol Tab) 650 mg Q4H PRN PO 05/31/16 06:30 06/30/16 06:29 Ondansetron HCl 4 mg 4 mg Q6H PRN IV 05/31/16 06:30 06/30/16 06:29 Sodium Chloride (Nss 1000ml) 1,000 ml @ 100 mls/hr Q10H IV 05/31/16 06:30 06/30/16 06:29 06/01/16 02:45 100 MLS/HR Glucose (Glucose 40% Gel) 15-30 GRAMS 15 GRAMS... UD PRN PO 05/31/16 08:15 06/30/16 08:14 Glucose (Glucose Chew Tab) 4-8 Tablets 4 Tabl... UD PRN PO 05/31/16 08:15 06/30/16 08:14 Dextrose (Dextrose 50% 50ML Syringe) 25-50ML OF 50% DW IV FOR... UD PRN IV 05/31/16 08:15 06/30/16 08:14 Glucagon (Glucagon Inj) 1 mg UD PRN SQ 05/31/16 08:15 06/30/16 08:14 Insulin Aspart (novoLOG ASPART) SLIDING SCALE G... ACHS SC 06/01/16 08:00 07/01/16 07:59 Objective Vital Signs Date Time Temp Pulse Resp B/P Pulse Ox O2 Delivery O2 Flow Rate FiO2 06/01/16 07:49 Room Air 06/01/16 07:07 36.4 55 16 122/73 95 Room Air 05/31/16 23:31 Room Air 05/31/16 22:59 36.5 57 16 121/79 96 Room Air 05/31/16 16:10 Room Air 05/31/16 15:00 36.3 59 18 126/77 94 Room Air Physical Exam General Appearance: WD/WN, no apparent distress Respiratory/Chest: lungs clear, normal breath sounds, no respiratory distress Cardiovascular: regular rate, rhythm, no gallop, no murmur Abdomen: normal bowel sounds, non tender, soft Neurologic/Psych: alert, normal mood/affect, oriented x 3 Skin: warm/dry Laboratory Results Last 24 Hours Test 05/31/16 11:54 05/31/16 12:23 06/01/16 07:30 Bedside Glucose 105 mg/dl Hemoglobin 13.5 g/dL Assessment and Plan Patient is a 60 year old male with a history of tubular adenomas and rectal cancer presenting with rectal bleeding status post colonoscopy yesterday with polypectomy most consistent with post-polypectomy bleeding. 1. Okay for discharge from GI standpoint. 2. Notify our office of any returning symptoms. 3. Pathology will be communicated to patient when available.
[2016-06-01 10:04] VITALS: BP 122/73; PULSE 55; TEMP 36.4; O2SAT 95
[2016-07-05] MEDS ORDERED: DILT1CAP15 PO (08:15)
[2016-07-05] MEDS ORDERED: AMOX500C3 PO (08:15)
[2016-07-05] MEDS ORDERED: TADA10TA PO (08:15)
== END 2016-06-01 10:41 | disposition home or self-care (01) | DRG 920 ==
LOC: ENRESERVDT → ENRESERVTM → C.EDB 02:34 → C.MSN 06:24
PROVIDERS: ADMIT Internal Medicine; ATTEND Hospitalist
DX: K91.840 Postprocedural hemorrhage of a digestive system organ or structure following a digestive system procedure (principal); K62.5 Hemorrhage of anus and rectum; Y84.8 Other medical procedures as the cause of abnormal reaction of the patient, or of later complication, without mention of misadventure at the time of the procedure; I10 Essential (primary) hypertension; E11.9 Type 2 diabetes mellitus without complications; Z53.29 Procedure and treatment not carried out because of patient's decision for other reasons; Z85.048 Personal history of other malignant neoplasm of rectum, rectosigmoid junction, and anus; Z85.038 Personal history of other malignant neoplasm of large intestine; Z86.010 Personal history of colon polyps; Z96.651 Presence of right artificial knee joint; Z79.82 Long term (current) use of aspirin; Z79.84 Long term (current) use of oral hypoglycemic drugs; Z79.899 Other long term (current) drug therapy

== ENCOUNTER 2016-07-13 06:23 | Day surgery (SDC) | payer BC ==
[2016-07-05 08:15] VITALS: BMI 42.0
--- NOTE | 2016-07-05 08:56 | PAT Medication Instructions ---
Service Date Jul 05, 2016. Current Home Medication List Amoxicillin (Amoxil), 4 TAB PO UD Diltiazem Hcl Coated Beads (Diltiazem Hcl Er), 350 MG PO QAM Fexofenadine Hcl (Mely Allergy), 1 TAB PO DAILY PRN for ALLERGIES Lisinopril (Zestril), 40 MG PO QAM Metformin Hcl (Glucophage), 500 MG PO BID Tadalafil (Cialis), 20 MG PO UD Medication Instructions For Your Scheduled Surgery Amoxicillin (Amoxil), 4 TAB PO UD (do not need to take AM of surgery- you will be getting an IV antibiotic) - Hold the following medications 48 hours prior to surgery: Metformin Hcl (Glucophage), 500 MG PO BID - Hold the following medications 24hours prior to surgery: Tadalafil (Cialis), 20 MG PO UD - Hold the following medications the morning of surgery: Lisinopril (Zestril), 40 MG PO QAM Fexofenadine Hcl (Mely Allergy), 1 TAB PO DAILY PRN for ALLERGIES - Take the following medications the morning of surgery with a sip of water: Diltiazem Hcl Coated Beads (Diltiazem Hcl Er), 350 MG PO QAM If you have any questions please call us at [phone] or [phone] ( [place]) or [phone]
--- NOTE | 2016-07-05 09:48 | DIAGNOSTIC IMAGING REPORT ---
CHEST PREADMISSION(PA/LAT) CLINICAL HISTORY: Preoperative evaluation COMPARISON STUDY: Chest CT March 12, 2014. FINDINGS: Lung volumes are normal. There is no pneumothorax or pleural effusion. No consolidation is identified. Cardiomediastinal silhouette is normal. The appearance of the chest is unchanged. IMPRESSION: No acute cardiopulmonary findings. Electronically signed by: Anshu Luong M.D. 07/05/2016 9:47 AM Dictated Date/Time: 07/05/2016 9:46 AM
[2016-07-05 10:26] LABS: BASO % 0.3 %; BASO ABS # 0.02 K/uL (0-0.2); COMPLETE YES; EOS % 3.2 %; HEMATOCRIT 43.9 % (42-52); IG% 0.3 %; LYMPH % 42.2 %; MEAN CELL VOLUME 88.3 fL (80-100); MEAN CORPUSCULAR HEMOGLOBIN 29.6 pg (25-34); MEAN CORPUSCULAR HGB CONC 33.5 g/dl (32-36); MEAN PLATELET VOLUME 10.7 fL (7.4-10.4); MONO % 11.9 %; NEUT % 42.1 %; PLATELET COUNT 391 K/uL (130-400); RED BLOOD COUNT 4.97 M/uL (4.7-6.1); WHITE BLOOD COUNT 6.87 K/uL (4.8-10.8)
[2016-07-05 10:37] LABS: URINE APPEARANCE CLEAR (CLEAR); URINE BILIRUBIN NEG (NEG); URINE COLOR YELLOW; URINE NITRITE NEG (NEG); URINE SPECIFIC GRAVITY 1.004 (1.000-1.030); UROBILINOGEN NEG (NEG)
[2016-07-05 10:45] LABS: MANUAL MICROSCOPIC REQUIRED? NO; REVIEW REQ? NO
[2016-07-05 11:19] LABS: ESTIMATED AVERAGE GLUCOSE 160 mg/dl; HA1C FLAG Normal (Normal)
--- NOTE | 2016-07-12 13:32 | HISTORY & PHYSICAL EXAMINATION ---
DATE OF ADMISSION: 07/13/2016 CHIEF COMPLAINT: Left shoulder pain and disability. HISTORY OF PRESENT ILLNESS: The patient is a 60-year-old gentleman seen and evaluated in our office for left shoulder pain and disability. He has pain and weakness with range of motion. An MRI revealed a large rotator cuff tear. He is now scheduled for a shoulder arthroscopy, subacromial decompression, and possible rotator cuff repair. PAST MEDICAL HISTORY: Hypertension, type 2 diabetes, obesity, colon cancer. PAST SURGICAL HISTORY: Unknown. MEDICATIONS: Lisinopril 40 mg daily, metformin 500 mg twice daily, fexofenadine 180 mg daily, diltiazem ER 360 mg daily, diltiazem ER 240 mg daily. ALLERGIES: NEOMYCIN, BACITRACIN, POLYMYXIN B. SOCIAL HISTORY AND REVIEW OF SYSTEMS: Noncontributory. PHYSICAL EXAMINATION: GENERAL: Well-nourished, well-developed elderly obese male who appears his stated age. HEAD, EYES, EARS, NOSE, AND THROAT: Normocephalic, atraumatic, extraocular movements intact, oropharynx pink and moist. NECK: Supple without adenopathy. LUNGS: Clear to auscultation bilaterally. HEART: Regular rate and rhythm. ABDOMEN: Soft, nontender, nondistended, obese. EXTREMITIES: Left shoulder demonstrates weak painful range of motion. There is weakness in the shoulder, there is weakness in the rotator cuff with resistive testing. X-RAYS and MRI was reviewed. He has a large somewhat retracted rotator cuff tear. There appears to also be at least a partial thickness tear of the subscapularis. ASSESSMENT: Left shoulder large rotator cuff tear. PLAN: Risks versus benefits were discussed. Consent was obtained. The patient's primary care physician is Dr. Huff. Will proceed with left shoulder arthroscopy, subacromial decompression, and attempted rotator cuff repair upon preoperative workup and medical clearance.
[~2016-07-13] VITALS: Ht 177.8 cm; Wt 134.0 kg
[~2016-07-13 06:23] MED LIST changes: +AMOX500C3 PO; -ASPI81TA28 PO; +BUPIVACAINE 0.25% 30 ML VIAL ONE; -DILT-203 PO; +DILT1CAP15 PO; +FENTANYL CITRATE INJ 50 MCG/1 ML 2 ML VIAL ONE; +LACTATED RINGER'S 1000ML 1,000 ML IV SCH; +MIDAZOLAM HCL 1 MG/ML 2ML VIAL ONE; +TADA10TA PO
[2016-07-13 06:44] VITALS: BP 143/92; PULSE 62; TEMP 36.6; O2SAT 95; Ht 177.8 cm; Wt 134.0 kg
[2016-07-13] MEDS ORDERED: ONDANSETRON INJ 2 MG/ML 2 ML VIAL ONE (07:14)
[2016-07-13] MEDS ORDERED: GLYCOPYRROLATE INJ 0.2 MG/ML VIAL ONE ×2 (07:14→09:20)
[2016-07-13] MEDS ORDERED: LIDOCAINE HCL 2% 2 ML VIAL (20MG/ML) ONE (07:14)
[2016-07-13] MEDS ORDERED: PROPOFOL IV EMULSION 10 MG/ML 20 ML VIAL IV ONE ×2 (07:14→08:51)
[2016-07-13] MEDS ORDERED: NEOSTIGMINE METHYLSULFATE 5 MG/5 ML SYR ONE (07:14)
[2016-07-13] MEDS ORDERED: FENTANYL CITRATE INJ 50 MCG/1 ML 2 ML VIAL ONE ×2 (07:14→08:53)
[2016-07-13] MEDS ORDERED: ROCURONIUM BROMIDE 10 MG/ML 5 ML VIAL ONE (07:14)
[2016-07-13] MEDS ORDERED: PHENYLEPHRINE 100MCG/ML 5ML SYR IV PRN (07:45)
[2016-07-13] MEDS ORDERED: EpHEDrine SULFATE INJ 50 MG/ML AMP IV PRN (07:45)
[2016-07-13] MEDS ORDERED: ATROPINE SULFATE 0.1 MG/ML 5ML SYR IV PRN (07:45)
[2016-07-13] MEDS ORDERED: ONDANSETRON INJ 2 MG/ML 2 ML VIAL IV PRN (07:45)
[2016-07-13] MEDS ORDERED: CEFAZOLIN IV 2,000 MG/60 ML D5W IV ONE (07:46)
[2016-07-13] MEDS ORDERED: NURSING VERBAL MED ORDER STA (07:54)
--- NOTE | 2016-07-13 08:00 | History & Physical Bridge Note ---
H&P Re-Evaluation Bridge Note: I have examined the patient, reviewed the History & Physical and in the interval since the performance of the History & Physical I have noted the following changes of clinical significance: No changes noted
[2016-07-13] MEDS ORDERED: SUCCINYLCHOLINE 100MG/5ML SYR IV ONE (08:29)
[2016-07-13] MEDS ORDERED: PHENYLEPHRINE 100MCG/ML 5ML SYR ONE (08:29)
[2016-07-13] MEDS ORDERED: SODIUM CHLORIDE 0.9% 1000ML 1,000 ML IV SCH (09:37)
[2016-07-13] MEDS ORDERED: OXYC-57 PO (09:40)
--- NOTE | 2016-07-13 09:42 | Discharge Instructions ---
Discharge Instructions Visit Reason for Visit: Left Shoulder Impingement Syndrome, Rotator Cuff T Discharge Discharge Diagnosis / Problem: Left shoulder rotator cuff tear Discharge Goals Goal(s): Decrease discomfort, Improve function Activity Recommendations Activity Limitations: as noted below Anesthesia . Post Anesthesia Instructions: If you have had General Anesthesia or IV Sedation: * Do not drive today. * Resume driving when surgeon permits. * Do not make important decisions or sign legal documents today. * Call surgeon for: 1. Temperature elevations greater than 101 degrees F. 2. Uncontrollable pain. 3. Excessive bleeding. 4. Persistent nausea and vomiting. 5. Medication intolerance (nausea, vomiting or rash). * For nausea and vomiting use only clear liquids such as: tea, soda, bouillon until nausea subsides, then gradually increase diet as tolerated. * If you have any concerns or questions, call your surgeon's office. If physician is unavailable and it is an emergency, call 911 or go to the nearest emergency room. . Instructions / Follow-Up Instructions / Follow-Up [facility] DISCHARGE INSTRUCTIONS: ROTATOR CUFF REPAIR SELF CARE INSTRUCTIONS A. You are permitted to loosen your sling/immobilizer to move your elbow, wrist , and hand to prevent stiffness. You should use your well arm (good arm) to assist the operated extremity when trying to raise the arm away from the body, hygiene purposes. Do NOT actively try to use/engage your shoulder muscles in operative arm at this time. You should NOT do overhead activity, lifting, or attempt to reach behind your back. B. You may/may not be instructed to start Physical Therapy upon discharge depending upon the size and difficulty of the repair. You will be provided a prescription for therapy with specific restrictions, if needed, at time of discharge. Hold PT until follow-up with MD Meier. At 48 hours post-operatively, you may change your dressing. (Leave white steri-strips intact if present). Use band-aids and change daily. You are allowed to shower at this time and get the incision area wet, but DO NOT soak or submerge incision area in water. (No baths, swimming pools, hot tubs) D. Do NOT apply soap or any ointment/lotions directly over incision. E. You may use ice as needed to operative shoulder SPECIAL CARE INSTRUCTIONS: VERY IMPORTANT TO READ AND REVIEW A. There are a few signs you need to watch for after you are home. Call [facility] at [phone] if you experience any of the following: a. Increased severe shoulder pain. Some pain is expected especially when you exercise b. Increased swelling in your shoulder or arm; pain or swelling in either upper extremity. (Note: swelling and stiffness is normal and expected for several weeks post op, depending on type of shoulder surgery you had). c. Any fluid or drainage from the incision; redness of the incision. d. Shortness of breath or chest pain. B. Please call [facility] at [phone] if you have any questions or concerns about your operation or recovery. C. Call your physician if: a. Temperature is greater than 101 degrees (F). b. Pain is not relieved by prescribed pain medications. c. Increase drainage or redness from incision. d. Unanswered questions or concerns. D. Pain Medication: a. You will be prescribed pain medication upon discharge that should last till your first post-operative appointment. b. If you experience nausea and/or skin rash, discontinue this medication and contact our office for an alternative medication. c. Caution- narcotic pain medication can cause constipation. FOLLOW UP VISIT: Please call [facility] at [phone] to schedule a follow up appointment 10-14 days from your surgery date. Diet Recommendations Recommended Home Diet: resume previous diet Procedures Procedures Performed: Left shoulder arthroscopic subacromial decompression, rotator cuff repair Pending Studies Studies pending at discharge: no Medical Emergencies . Who to Call and When: Medical Emergencies: If at any time you feel your situation is an emergency, please call 911 immediately. . Non-Emergent Contact Non-Emergency issues call your: Surgeon Call Non-Emergent contact if: temperature is above 101.5, your pain is not controlled, wound has increased drainage, wound has increased redness . . "Provider Documentation" section prepared by Robert Simpson PA-C. [place] Drug Monitoring Program Search Results: patient reviewed within database
--- NOTE | 2016-07-13 09:43 | [facility] Post Operative Brief Note ---
Immediate Operative Summary Operative Date Jul 13, 2016. Pre-Operative Diagnosis Left shoulder large rotator cuff tear Post-Operative Diagnosis Left shoulder large rotator cuff tear Procedure(s) Performed Left shoulder arthroscopic subacromial decompression, rotator cuff repair Surgeon Dr. Nguyen Java Developer With Security Clearance Surgeon(s) Robert Simpson PA-C Estimated Blood Loss 20mL Findings Large rc tear Specimens none
[2016-07-13] MEDS ORDERED: HYDROCODONE/ACETAMOPHEN 5/325MG TAB PO PRN (09:45)
[2016-07-13] MEDS: HYDROmorphone INJ 2 MG/ML SYR/VIAL IV PRN ×3 (09:45→10:00)
[2016-07-13] MEDS ORDERED: OXYCODONE/ACETAMINOPHEN 5-325 TAB PO PRN (09:45)
--- NOTE | 2016-07-13 10:04 | OPERATIVE REPORT ---
DATE OF OPERATION: 07/13/2016 PREOPERATIVE DIAGNOSIS: Rotator cuff tear, left shoulder. PROCEDURE: Arthroscopic subacromial decompression, rotator cuff repair, left shoulder. SURGEON: Dr. Nguyen. DIRECTOR OF INSTRUCTIONAL TECHNOLOGY: Robert Simpson PA-C. DIRECTOR OF INSTRUCTIONAL TECHNOLOGY: General. COMPLICATIONS: None. PROCEDURE: Following induction of adequate general anesthesia, the patient's left shoulder was prepped and draped in the usual sterile manner with him in the beach chair position. Posterior incision was used for insertion of the arthroscope. Intra-articular elements were identified. Some fraying of the glenoid labrum was noted. This was debrided through an anterior portal using the shaver blade. Next, attention was turned to the subacromial space where abundant bursitis was encountered. A bursectomy was carried out using 90 degree ablator and a 5.5 mm compa was used to perform an arthroscopic subacromial decompression. The large nature of the rotator cuff tear was noted. It was somewhat retracted. A bur was used to expose subchondral bone and using a Healicoil anchor the rotator cuff was repaired back down to the normal footprint. An attempt at creating a double row repair with a footprint was unsuccessful and the sutures were removed and the footprint anchor was removed. The arthroscope was withdrawn. Wounds were closed using 4-0 nylon simple sutures. Sterile dressings of Adaptic, 4 x 4s, ABDs and foam tape and a Velpeau sling was applied. The patient tolerated the procedure well. I attest to the content of the Intraoperative Record and any orders documented therein. Any exceptio ns are noted below.
--- NOTE | 2016-07-13 10:29 | Anesthesiology Progress Note ---
Anesthesia Post Op Note Date & Time Jul 13, 2016 at 10:30 Vital Signs Pain Intensity: 6 Vital Signs Past 12 Hours Date Time Temp Pulse Resp B/P Pulse Ox O2 Delivery O2 Flow Rate FiO2 07/13/16 10:23 59 16 93 07/13/16 10:23 57 16 102/56 07/13/16 10:22 98/71 07/13/16 10:21 58 16 94 07/13/16 10:21 57 16 07/13/16 10:20 95/55 07/13/16 10:16 59 15 93 07/13/16 10:16 59 15 07/13/16 10:15 117/66 07/13/16 10:12 68 17 07/13/16 10:12 68 17 92 07/13/16 10:11 36.7 07/13/16 10:11 106/63 07/13/16 10:07 65 16 93 07/13/16 10:07 66 16 07/13/16 10:06 70 19 92 07/13/16 10:06 69 19 07/13/16 10:05 119/74 07/13/16 10:01 75 18 07/13/16 10:01 75 18 97 07/13/16 10:00 115/69 07/13/16 09:59 72 16 07/13/16 09:59 71 16 100 07/13/16 09:57 117/73 07/13/16 09:56 110/ 07/13/16 09:54 68 18 07/13/16 09:54 68 18 98 07/13/16 09:50 105/73 07/13/16 09:49 64 13 07/13/16 09:49 64 13 99 07/13/16 09:46 142/89 07/13/16 09:44 76 16 07/13/16 09:44 77 16 99 07/13/16 09:39 20 07/13/16 09:39 80 20 148/95 07/13/16 09:39 36.0 81 16 148/95 98 Mask 10 07/13/16 06:44 36.6 62 18 143/92 95 Room Air Notes Mental Status: alert / awake / arousable, participated in evaluation Pt Amnestic to Procedure: Yes Nausea / Vomiting: adequately controlled Pain: adequately controlled Airway Patency, RR, SpO2: stable & adequate BP & HR: stable & adequate Hydration State: stable & adequate Anesthetic Complications: no major complications apparent
[2016-07-13 10:35] VITALS: BP 116/72; PULSE 62; TEMP 36.3; O2SAT 93
[2016-07-13 11:05] VITALS: BP 114/69; PULSE 60; TEMP 36.4; O2SAT 93
[2016-07-13 11:35] VITALS: BP 109/67; PULSE 57; TEMP 36.4; O2SAT 93
--- NOTE | 2016-07-14 11:57 | EDITING REQUIRED CODING QUERY ---
CQ ROTATOR CUFF TEAR To promote full compliance with coding requirements relating to patient care, provider participation is requested in all cases of reinsurance claim analyst uncertainty. Please assist us with the question(s) below: Please Specify the type of Rotator Cuff Tear by placing an "X" within the parenthesis (). If other please document type. () Current/Traumatic () Degenerative DATE OF SERVICE 07/13/16 WAS THIS ACCIDENT OR () Nontraumatic Complete DEGENERATIVE TEAR () Nontraumatic Partial () Other:(Please Specify) Thank you Germania Maravilla
--- NOTE | 2016-07-24 09:45 | OPERATIVE REPORT ---
DATE OF OPERATION: 07/13/2016 ADDENDUM EX ASSISTANT/PROGRAM DIRECTOR: Robert Simpson PA-C. Mr. Simpson was essential throughout all portions of the case including patient positioning, prepping, draping, assistant operations manager, wound closure and dressing application. I attest to the content of the Intraoperative Record and any orders documented therein. Any exceptio ns are noted below.
== END 2016-07-13 12:35 | disposition home or self-care (01) ==
LOC: C.ACU 06:23
DX: S46.012A Strain of muscle(s) and tendon(s) of the rotator cuff of left shoulder, initial encounter (principal); X58.XXXA Exposure to other specified factors, initial encounter; E11.9 Type 2 diabetes mellitus without complications; I10 Essential (primary) hypertension; E66.9 Obesity, unspecified; Z85.038 Personal history of other malignant neoplasm of large intestine

== ENCOUNTER → 2016-09-13 | Outpatient (CLI) | payer BC ==
[~2016-09-13] MED LIST changes: -BUPIVACAINE 0.25% 30 ML VIAL ONE; -FENTANYL CITRATE INJ 50 MCG/1 ML 2 ML VIAL ONE; -LACTATED RINGER'S 1000ML 1,000 ML IV SCH; -MIDAZOLAM HCL 1 MG/ML 2ML VIAL ONE; +OXYC-57 PO
[2016-09-14 17:33] LABS: ALBUMIN 3.8 G/DL (3.8-4.8); GAMMA GLOBULIN 0.7 G/DL (0.8-1.7); TOTAL PROTEIN 6.6 G/DL (6.2-8.3)
== END | disposition home or self-care (01) ==
LOC: C.LABBFT 09:03
PROVIDERS: ATTEND Internal Medicine
DX: E11.9 Type 2 diabetes mellitus without complications (principal); C20 Malignant neoplasm of rectum; R80.9 Proteinuria, unspecified; Z12.5 Encounter for screening for malignant neoplasm of prostate

== ENCOUNTER → 2016-09-15 | Outpatient (CLI) | payer BC ==
[2016-09-15 10:55] LABS: PATIENT HEIGHT 177.8 cm
[2016-09-15 20:14] LABS: CREATININE 0.83 mg/dl (0.6-1.4)
[2016-09-19 06:34] LABS: ALBUMIN % 77.32 %; ALPHA-2-GLOBULIN % 4.07 %; BETA GLOBULIN % 11.73 %; CREATININE UR 97 MG/DL (20-370); GAMMA GLOBULIN % 5.96 %
== END | disposition home or self-care (01) ==
LOC: C.LABBFT 10:41
PROVIDERS: ATTEND Internal Medicine
DX: R80.9 Proteinuria, unspecified (principal)

== ENCOUNTER → 2017-01-11 | Outpatient (CLI) | payer BC ==
[~2017-01-11] VITALS: Ht 177.8 cm; Wt 134.4 kg
[2017-01-11 09:36] VITALS: BP 137/87; PULSE 63; Ht 177.8 cm; Wt 134.4 kg
== END | disposition home or self-care (01) ==
LOC: C.NEUR 09:23
PROVIDERS: ATTEND Internal Medicine Pulmonary Disease
DX: G47.33 Obstructive sleep apnea (adult) (pediatric) (principal)

== ENCOUNTER → 2017-01-23 | Outpatient (CLI) | payer BC ==
[~2017-01-23] MED LIST changes: -OXYC-57 PO
[2017-01-23 13:10] LABS: ALT/SGPT 48 U/L (12-78); BLOOD UREA NITROGEN 14 mg/dl (7-18); BUN/CREATININE RATIO 18.5 (10-20); CALCIUM 9.2 mg/dl (8.5-10.1); CARBON DIOXIDE 24 mmol/L (21-32); CHLORIDE 105 mmol/L (98-107); CREATININE 0.74 mg/dl (0.60-1.40); GLUCOSE 141 mg/dl (70-99); POTASSIUM 4.4 mmol/L (3.5-5.1); SODIUM 137 mmol/L (136-145)
[2017-01-23 13:15] LABS: ALKALINE PHOSPHATASE 67 U/L (45-117); AST/SGOT 23 U/L (15-37); PROSTATE SPECIFIC ANTIGEN 0.221 ng/ml (0.000-4.000)
[2017-01-23 13:48] LABS: RATIO 769.4 mcg/mg (0-30.0)
== END | disposition home or self-care (01) ==
LOC: C.LABBFT 07:43
PROVIDERS: ATTEND Internal Medicine
DX: R80.9 Proteinuria, unspecified (principal); E11.9 Type 2 diabetes mellitus without complications; C20 Malignant neoplasm of rectum; Z12.5 Encounter for screening for malignant neoplasm of prostate

== ENCOUNTER → 2017-02-03 | Outpatient (CLI) | payer BC ==
--- NOTE | 2017-02-05 08:17 | SPLIT NIGHT TECHNICIAN REPORT ---
[facility] Split Night Polysomnogram - Irrigation Specialist Report Study date: 02/03/2017 Referring Physician: FLORES MENON M.D. Name: EVELYN COOPER Irrigation Specialist: Natacha Gerber, PSGT. Date of : 1955 Height: 61 years, Height 5' 10" Sex: Male Weight: 296 lbs Age: 61 BMI: Medications: 42.47 Mely 180 mg, Metformin 500 mg, Aspirin 81 mg, Diltiazem 120 mg, Lisinopril 40 mg, Cialis 20 mg. Patient History 61 yr. old male presents to the sleep lab for a split night study. Pt. states that he snores and has been told he stops breathing during sleep, has a hx of hypertension, diabetes and obesity.Ess = 7. Parameters Monitored NPSG: E1-M2, E2-M1, Fp1-M2, Fp2-M1, F3-M2, F4-M2, F4-M1, C3-M2, C4-M2, C4-M1, O1-M2, O2-M2, O2-M1, T3-M2, T4-M1, P3-M2, P4-M1, CHIN1, CHIN2, HR, EKG, Legs, PFLOW, SNOR, FLOW, CFLOW, Tidal Volume, THOR, ABDO, SpO2, PLTH, CPRESS, ETCO2 Wave, ETCO2, pH SLEEP SUMMARY DATA DIAGNOSTIC TREATMENT Lights Out: 11:23:46 PM NONE Lights On: 2:03:16 AM 5:42:46 AM Total Recording Time (TRT): 160.5 min. 205.5 min. Total Sleep Time (TST): 129.5 min. 156.0 min. NREM Time: 122.0 min. 128.5 min. REM Time: 7.5 min. 27.5 min. Sleep Period Time (SPT): 132.5 min. 178.0 min. Sleep Efficiency (SE): 81 % 76 % Sleep Latency: 23.5 min. NONE min. Arousal Index: 22.7 14.6 PAP Treatment Levels: 5, 7, 9, 10 * Optimal Pressure(s) SLEEP STAGING DATA DIAGNOSTIC TREATMENT Duration (min) TST % Duration (min) TST % Stage Wake: 31.0 min. -- 49.5 min. -- WASO: 6.5 min. -- 22.0 min. -- NREM: 122.0 min. 94 % 128.5 min. 82 % Stage N1: 39.0 min. 30 % 25.0 min. 16 % Stage N2: 83.0 min. 64 % 91.5 min. 59 % Stage N3: 0.0 min. 0 % 12.0 min. 8 % REM: 7.5 min. 6 % 27.5 min. 18 % POSITIONAL DATA Event Count Index Event Count Index Supine: 82 88.6 18 26.9 Supine NREM: 70 87.5 18 26.9 Supine REM: 12 96 N/A N/A Non-Supine: 48 38.9 10 5.2 Non-Supine NREM: 48 38.9 10 6.8 Non-Supine REM: N/A N/A 0 0.0 AROUSAL SUMMARY DATA: Event Count Index Event Count Index Apnea Arousals: 16 21.3 0 1.9 Hypopnea Arousals: 17 7.9 1 0.4 Snore Arousals: 4 1.9 1 0.4 PLM Arousals: 2 0.9 1 0.4 Non-Specific Arousals: 9 4.2 34 13.1 Total Arousals: 49 22.7 38 14.6 MYOCLONUS (PLM) Event Count Index Event Count Index PLM: 46 21.3 21 8.1 PLM AROUSAL: 2 0.9 1 0.4 PLM W/O AROUSAL 46 21.3 20 7.7 PLM W/RESP EVENT 2 0.0 0 0.0 MYOCLONUS (PLM) Event Count Index Event Count Index LM: 2 24.1 24 9.2 LM AROUSAL: 2 0.9 1 0.4 LM W/O AROUSAL LM W/RESP EVENT LM NON SPECIFIC 70 32.4 41 15.8 HEART RATE DATA DIAGNOSTIC TREATMENT Sleep (bpm): 57 63 REM (bpm): 91 94 NREM (bpm): 91 92 Tachycardia Count: 0 0 Tachycardia Duration: 0.00 0 Bradycardia Count: 0 0 Bradycardia Duration: 0.00 0 DIAGNOSTIC PORTION TREATMENT PORTION RESPIRATORY DATA Event Count Index Event Count Index AHI: -- 60.2 -- 10.8 RDI: -- 60.2 -- 11 Obstructive Apnea: 40 18.5 1 0.4 Central Apnea: 0 0.0 4 1.5 Mixed Apnea: 6 2.8 0 0.0 Hypopnea: 84 38.9 23 8.8 RERA: 0 0.0 0 0.0 Total Apneas: 46 21.3 5 1.9 RESPIRATORY DATA REM NREM SLEEP REM NREM SLEEP Supine Position: Obstructive Apneas: 6 34 40 N/A 0 0 Central Apneas: 0 0 0 N/A 0 0 Mixed Apneas: 1 5 6 N/A 0 0 Hypopneas: 5 31 36 N/A 18 18 RERA 0 0 0 N/A 0 0 Total Supine Events: 12 70 82 N/A 18 18 Supine AHI: 96 87.5 88.6 N/A 26.9 26.9 Supine RDI: 96.0 87.5 88.6 N/A 26.9 26.9 REM NREM SLEEP REM NREM SLEEP Non-Supine Position: Obstructive Apneas: N/A 0 0 0 1 1 Central Apneas: N/A 0 0 0 4 4 Mixed Apneas: N/A 0 0 0 0 0 Hypopneas: N/A 48 48 0 5 5 RERA N/A 0 0 0 0 0 Total Supine Events: N/A 48 48 0 10 10 Supine AHI: N/A 38.9 38.9 0.0 6.8 5.2 Supine RDI: N/A 38.9 38.9 0.0 6.8 5.2 OXYGEN DESTAURATION DATA: Event Count Index Event Count Index REM Desaturations: 12 96.0 0 0.0 NREM Desaturations: 111 54.6 49 22.9 SNORE DATA DIAGNOSTIC TREATMENT Snore Time: 7.1 2:44:46 AM Snore TST%: 3 2 Snore Arousal Count: 4 1 Snore Arousal Index: 1.9 0.4 Desaturation Event Summary: Minimum %SpO2 Event Count Mean/Min/Max Duration(sec.) Desaturation Index % Time In Bed > 90 172 22.1 / 10.8 / 53.3 36.2 78.8 86 - 90 4 16.1 / 12.8 / 20.8 3.1 21.1 81 - 85 0 N/A 0.0 0.1 76 - 80 0 N/A 0.0 0.0 71 - 75 0 N/A 0.0 0.0 66 - 70 0 N/A 0.0 0.0 61 - 65 0 N/A 0.0 0.0 56 - 60 0 N/A 0.0 0.0 51 - 55 0 N/A 0.0 0.0 < 50 0 N/A 0.0 0.0 OXYGEN SATURATION DATA DIAGNOSTIC TREATMENT SpO2 Mean Sleep: 91 % 93 % SpO2 Mean REM: 91 % 94 % SpO2 Mean NREM: 91 % 92 % SpO2 Minimum Sleep: 84 % 86 % SpO2 Minimum REM: 86 % 92 % SpO2 Minimum NREM: 84 % 86 % Time Below 90% (TST): 20.2 5.6 Time Below 88% (TST): 4.0 0.5 Total REM NREM Awake <50% 0.0 min. 0.0 min. 0.0 min. 0.0 min. 51 - 60% 0.0 min. 0.0 min. 0.0 min. 0.0 min. 61 - 70% 0.0 min. 0.0 min. 0.0 min. 0.0 min. 71 - 80% 0.0 min. 0.0 min. 0.0 min. 0.0 min. 81 - 90% 76.8 min. 3.1 min. 58.9 min. 14.8 min. 91 - 100% 284.9 min. 31.8 min. 190.4 min. 62.7 min. Average 92 93 92 92 Minimum SpO2 83 86 84 83 Desaturation Event Index 28.3 20.6 38.3 0.8 # Desat. Events below 89% 82 10 72 0 Time(%) with Saturation below 89% 3.6 0.4 2.9 0.3 Time(min.) with Saturation below 89% 13.0 1.4 10.5 1.1 Recording Irrigation Specialist Comments: Split -Night: Mr. Cooper slept in the right, left, and supine positions. No cardiac arrhythmia or PLM's noted. No bruxism noted. Snoring was noted and scored as a 4 on a scale of 1 through 5. (0=no snoring, 5=snoring loud enough to be heard through a closed door or down the navarrete way) At 2:03, MR. Cooper has met specific Split-Night criteria during the diagnostic portion of this study. CPAP was initiated at +4 CMH2O and up-titrated to an optimal level of +10 CMH2O, which nearly eliminated all respiratory events and snoring. A large F&P Simplus , was used during titration Mr. Cooper awoke to use the restroom one time during the night. Mr. Cooper stated, I did sleep as better than I do at home. The final report will be interpreted and signed by a sleep physician. The completed physician report will then be placed in the patient medical record. Therapy Event: Therapy (cm H20) 0 5 7 9 10 Total Time at Pressure (min.) 160.5 55.8 59.0 33.6 55.7 TST at Pressure (min.) 129.5 29.2 57.5 18.1 51.2 # Periods 1 1 1 1 1 Sleep Onset (min.) 23.5 26.0 0.0 0.0 0.0 REM Onset (min.) 131.0 N/A 39.8 N/A 25.7 Sleep Efficiency % 80 52 97 53 91 Wakefulness (%) 19.3 47.6 2.5 46.2 8.1 Wakefulness (min.) 31.0 26.5 1.5 15.5 4.5 NREM 1 (%) 24.3 17.0 8.5 16.4 9.0 NREM 1 (min.) 39.0 9.5 5.0 5.5 5.0 NREM 2 (%) 51.7 35.4 61.0 37.4 41.6 NREM 2 (min.) 83.0 19.7 36.0 12.6 23.2 NREM 3 (%) 0.0 0.0 20.3 0.0 0.0 NREM 3 (min.) 0.0 0.0 12.0 0.0 0.0 REM (%) 4.7 0.0 7.6 0.0 41.3 REM (min.) 7.5 0.0 4.5 0.0 23.0 # Arousals 49 4 12 8 14 Arousal Index 22.7 8.2 12.5 26.6 16.4 # Snore 259 105 11 14 1 Snore Index 120.0 215.6 11.5 46.5 1.2 AHI 60.2 28.7 9.4 16.6 0.0 AHI Supine 88.6 28.8 N/A 27.2 0.0 AHI Non-Supine 38.9 0.0 9.4 6.5 0.0 NREM AHI 58.0 28.7 10.2 16.6 0.0 REM AHI 96.0 N/A 0.0 N/A 0.0 RDI 60.2 28.7 9.4 16.6 0.0 # Obstructive 40 0 1 0 0 # Central Ap 0 0 4 0 0 # Mixed 6 0 0 0 0 # Hypopneas 84 14 4 5 0 RERAS 0 0 0 0 0 Total Respiratory Events 130 14 9 5 0 Time Below SpO2 89.00% (min.) 10.0 1.2 0.4 0.2 0.1 Mean NREM SpO2 (%) 91 92 92 92 93 Mean REM SpO2 (%) 91 N/A 93 N/A 94 Mean Sleep SpO2 (%) 91 92 93 92 93 Min NREM SpO2 (%) 84 87 86 88 88 Min REM SpO2 (%) 86 N/A 92 N/A 92 Position Supine (min.) 55.5 29.1 0.0 8.8 2.2 Position Non-supine (min.) 74.0 0.1 57.5 9.3 49.0 LM Index Sleep 45.4 26.7 18.8 26.6 7.0 LM Index NREM 46.2 26.7 17.0 26.6 8.5 LM Index REM 32.0 N/A 40.0 N/A 5.2 Mean Heart Rate (bpm) 57 65 65 62 61 Min Heart Rate (bpm) 47 59 57 53 56
--- NOTE | 2017-02-09 12:58 | Sleep Study ---
Sleep Study Report Date of Service: 02/03/2017 Sleep Study Report Clinical data: The patient is a 61-year-old male with a history of snoring, observed apneas, and excessive daytime somnolence. His [place] Sleepiness Scale score is 7 out of a possible 24. He is referred by Dr. Huff. This was an in-lab overnight split study. Sleep architecture: The study was divided into a diagnostic and therapeutic portions with nasal CPAP being used during the therapeutic portion of the study. During the diagnostic portion of the study the sleep period time was 132.5 minutes. The total sleep time was 129.5 minutes. The sleep efficiency was mildly reduced to 81 percent. The sleep latency was 23.5 minutes. Sleep consisted of stage N1 30 percent, stage N2 64 percent, stage N3 0 percent, stage REM 6 percent. During the therapeutic portion of the study the sleep period time was 178.0 minutes. The total sleep time was 156.0 minutes. The sleep efficiency was moderately reduced to 76 percent. Sleep consisted of stage N1 16 percent, stage N2 59 percent, stage N3 8 percent , and stage REM 18 percent. Arousal data: During the diagnostic portion of the study the patient had 49 arousals including 16 apnea arousals, 17 hypopnea arousals, 4 snoring arousals, and 9 nonspecific arousals. The arousal index was 22.7. During the therapeutic portion of the study the patient had a total of 38 arousals including 1 hypopnea arousal, 1 snoring arousal, 1 PLM arousal, and 34 nonspecific arousals. The arousal index was 14.6. PLM data: During the diagnostic portion of the study the patient had a total of 46 limb movements for a PLM index of 21.3. There were 2 arousals associated with limb movements for a PLM arousal index of 0.9. During the therapeutic portion of the study the patient had a total of 21 periodic limb movements for an index of 8.1. There was 1 arousal associated with limb movements for a PLM arousal index of 0.4. EKG: The underlying cardiac rhythm was normal sinus. The cardiac rates ranged from 57 to 92 beats per minute. No arrhythmia was noted. Respiratory data: During the diagnostic portion of the study the patient had a total of 130 respiratory events including 40 obstructive apneas, 6 mixed apneas, and 84 hypopneas. The apnea-hypopnea index was severely elevated at 60.2. This reflects severe sleep apnea. During the therapeutic portion of the study the patient was treated with nasal CPAP which was titrated to a final pressure of 10 centimeters. The patient had a total of 28 respiratory events including 1 obstructive apnea, 4 central apneas , and 23 hypopneas. Hypopneas were scored according to the 4 percent desaturation rule. The apnea-hypopnea index was 10.8 events per hour. At the final pressure of 10 centimeters the apnea-hypopnea index was 0. He was at that pressure for a total of 55 minutes. Oximetry data: During the diagnostic portion of the study the mean saturation was 91 percent. The minimum saturation was 84 percent. There was a total of 4 minutes less than 88 percent. During the therapeutic portion of the study the mean saturation was 93 percent. The minimum saturation was 86 percent. There was only 0.5 minutes with saturations less than 88 percent. Workers Compensation Claims Analyst comments: The patient slept on the right, left, and supine positions. No cardiac arrhythmias noted. No bruxism noted. Snoring was noted and scored as a 4 on a scale of 1 through 5. At 20:03 a.m. Mr. mitchell met specific split night criteria. CPAP was initiated at 4 centimeters and up titrated to an optimal level of 10 centimeters which nearly eliminated all respiratory events and snoring. A large Guajardo and Paykel simplus mask was used. Impressions: 1. Severe obstructive sleep apnea - resolved with nasal CPAP at 10 centimeters Comments: The patient has severe sleep apnea. In light of this a split study was done. There was a dramatic improvement in his respiratory events and the apnea was totally resolved at 10 centimeters. His sleep architecture improved with increase in stage N3 and stage REM sleep. The patient has hypertension and diabetes as comorbidities and treatment is strongly advised. Following the study the patient indicated that he slept better than he usually does at home. Recommendations: 1. It is advised that the patient be started on nasal CPAP at 10 centimeters. 2. It is suggested that he be ordered a Guajardo and Paykel simplus mask size large 3. Weight loss is advised in light of the elevation of body mass index at 42.47. 4. It is suggested that the patient avoid sleeping in the supine position if at all possible. 5. The patient should be seen in follow-up between day 31 day 90 after receiving his CPAP. Copies To 1: Gatito Bro DO; Fly Huff M.D.
== END | disposition home or self-care (01) ==
LOC: C.NEUR 20:00
PROVIDERS: ATTEND Internal Medicine Pulmonary Disease
DX: G47.33 Obstructive sleep apnea (adult) (pediatric) (principal)

== ENCOUNTER → 2017-04-26 | Outpatient (CLI) | payer BC ==
[~2017-04-26] VITALS: Ht 177.8 cm; Wt 131.5 kg
[2017-04-26 15:00] VITALS: BP 123/78; PULSE 88; Ht 177.8 cm; Wt 131.5 kg
== END | disposition home or self-care (01) ==
LOC: C.NEUR 14:35
PROVIDERS: ATTEND Physician Assistant
DX: G47.33 Obstructive sleep apnea (adult) (pediatric) (principal); E66.9 Obesity, unspecified

== ENCOUNTER → 2017-06-21 | Outpatient (CLI) | payer OTHER ==
[2017-06-21 13:15] LABS: HEMOGLOBIN A1C 7.8 % (4.5-5.6)
== END | disposition home or self-care (01) ==
LOC: C.LABBFT 08:57
PROVIDERS: ATTEND Internal Medicine
DX: E11.9 Type 2 diabetes mellitus without complications (principal); E78.00 Pure hypercholesterolemia, unspecified

== ENCOUNTER → 2017-07-06 | Outpatient (CLI) | payer OTHER ==
--- NOTE | 2017-07-06 10:36 | DIAGNOSTIC IMAGING REPORT ---
ULTRASOUND TESTES AND SCROTUM CLINICAL HISTORY: Testicular nodule. COMPARISON STUDY: No priors. TECHNIQUE: Real-time, grayscale, and color Doppler sonography of the testes and scrotum is performed. Images are reviewed in the transverse and longitudinal planes. FINDINGS: The testes are normal in size and homogeneous in echotexture. The right testis measures 4.9 x 2.5 x 3.4 cm and the left testis measures 4.8 x 2.1 x 3.5 cm. No intratesticular mass is seen. Testicular blood flow is normal and symmetric. Normal Doppler waveforms are identified in both testes. The epididymal heads are normal in appearance. The right epididymal head measures 1.3 cm in length and the left epididymal head measures 1.7 cm in length. There is a 1.9 cm right epididymal head cyst. There is a 5.1 x 3.5 x 2.9 cm cystic area seen in the left hemiscrotum, also likely representing a large epididymal head cyst/spermatocele. Numerous additional smaller epididymal head cysts are seen bilaterally. No varicocele or hydrocele is seen. IMPRESSION: 1. Unremarkable sonographic appearance of the testes. 2. There is a 5.1 cm cystic lesion in the left hemiscrotum, likely representing an epididymal head cyst/spermatocele. This corresponds to the finding of palpable concern. 3. Numerous additional smaller epididymal head cysts are seen bilaterally. Electronically signed by: Canelo Cast M.D. 07/06/2017 10:35 AM Dictated Date/Time: 07/06/2017 10:31 AM
== END | disposition home or self-care (01) ==
LOC: C.ULTR 09:38
PROVIDERS: ATTEND Internal Medicine
DX: N50.89 Other specified disorders of the male genital organs (principal)

== ENCOUNTER 2022-10-31 05:12 | Observation (INO) ==
--- NOTE | 2022-10-18 11:51 | PAT Medication Instructions ---
Medication Instructions Date of Service October 18, 2022 Home Medications Medication Instructions Recorded CPAP Supplies #1 ea 01/23/19 amoxicillin 500 mg capsule 2,000 mg PO UD #12 caps 01/30/22 dulaglutide 1.5 mg/0.5 mL 1.5 mg (0.5 mL) subcut .COMPLEX #6 02/20/22 subcutaneous pen injector mL (Trulicity) betamethasone dipropionate 0.05 % 1 applic topical BID PRN Rash #60 05/19/22 topical cream grams diltiazem HCl 420 mg capsule,24 420 mg PO QPM #90 caps 07/19/22 hr,extended release metformin 500 mg tablet,extended 1,000 mg PO BID #360 tabs 07/19/22 release 24 hr mupirocin 2 % topical ointment 1 applic topical BID 7 days #15 08/24/22 grams aspirin 81 mg tablet,delayed release (Aspir-Low) 81 mg PO QAM fexofenadine 180 mg tablet 180 mg PO HS multivitamin 1 tab PO QAM amoxicillin 500 mg capsule 2,000 mg PO UD dulaglutide 1.5 mg/0.5 mL subcutaneous pen injector (Trulicity) 1.5 mg (0.5 mL) subcut .COMPLEX betamethasone dipropionate 0.05 % topical cream 1 applic topical BID PRN Rash irbesartan 300 mg tablet 300 mg PO QAM diltiazem HCl 420 mg capsule,24 hr,extended release 420 mg PO QPM metformin 500 mg tablet,extended release 24 hr 1,000 mg PO BID mupirocin 2 % topical ointment 1 applic topical BID Continue as directed amoxicillin 500 mg capsule 2,000 mg PO UD (prior to dental procedures) dulaglutide 1.5 mg/0.5 mL subcutaneous pen injector (Trulicity) 1.5 mg (0.5 mL) subcut .COMPLEX STOP taking 24 hours before surgery betamethasone dipropionate 0.05 % topical cream 1 applic topical BID PRN Rash mupirocin 2 % topical ointment 1 applic topical BID DO NOT take the morning of surgery multivitamin 1 tab PO QAM irbesartan 300 mg tablet 300 mg PO QAM metformin 500 mg tablet,extended release 24 hr 1,000 mg PO BID Take morning of surgery With a small sip of water, OTHERWISE NOTHING TO EAT OR DRINK AFTER MIDNIGHT: aspirin 81 mg tablet,delayed release (Aspir-Low) 81 mg PO QAM (continue as normal unless told otherwise by surgeon) Take evening before surgery fexofenadine 180 mg tablet 180 mg PO HS diltiazem HCl 420 mg capsule,24 hr,extended release 420 mg PO QPM metformin 500 mg tablet,extended release 24 hr 1,000 mg PO BID Other Notes If you have any questions please call us at [phone] or [phone] or [phone] or [phone]
--- NOTE | 2022-10-19 08:47 | Anesthesiology Consultation ---
Date of Service October 19, 2022 Assessment & Plan (1) Encounter for pre-operative examination: - Check BSG AM DOS - COVID screening: Per assessment on 10/19: No known COVID-19 positive contacts or current COVID-19 related symptoms. Travel screen negative. Patient vaccinated. At surgeon discretion if preop Covid testing being done. - Outpatient joint assessment: Pt currently scheduled for inpatient pathway. If surgeon requests review for outpatient joint pathway, patient is not recommended candidate for outpatient joint program from anesthesia standpoint. Chart Review Chart Review: Acceptable Risk for Surgery and Patient seen in Pre Admission Testing Teaching & Discussion Pre-Anesthesia Teaching/Discussion Notes: Instructed NPO after midnight before surgery,except medications with 15 cc of water. Medication instructions provided according to the PAT guidelines. History Surgery Operation Date: 10/31/22 07:00 Proposed Procedures p Left Total Knee Arthroplasty - Jett Trinidad MD Height/Weight Height: 5 ft 10 in Weight: 130 kg Allergies Allergy/AdvReac Type Severity Reaction Status Date / Time Aminoglycosides Allergy Unknown Localized Verified 10/19/22 08:45 swelling + rash bacitracin Allergy Unknown Localized Verified 10/19/22 08:45 swelling + rash cat dander Allergy Unknown Eye Verified 10/19/22 08:45 swelling, sneezing codeine Allergy Unknown Flushing, Verified 10/19/22 08:45 hot flashes neomycin Allergy Unknown Localized Verified 10/19/22 08:45 swelling + rash polymyxin B Allergy Unknown Localized Verified 10/19/22 08:45 swelling + rash Medications Home Medications Medication Instructions Recorded Confirmed Last Taken CPAP Supplies #1 ea 01/23/19 08/24/22 Unknown aspirin 81 mg tablet,delayed 81 mg PO QAM 01/23/19 10/18/22 06/04/22 release (Aspir-Low) blood sugar diagnostic (OneTouch #10 ea 02/11/19 08/24/22 Unknown Ultra Blue Test Strip) fexofenadine 180 mg tablet 180 mg PO HS 02/11/19 10/18/22 06/05/22 lancets 33 gauge (OneTouch Delica #100 ea 02/11/19 08/24/22 Unknown Lancets) multivitamin 1 tab PO QAM 06/02/19 10/18/22 06/05/22 amoxicillin 500 mg capsule 2,000 mg PO UD #12 caps 01/30/22 10/18/22 Unknown dulaglutide 1.5 mg/0.5 mL 1.5 mg (0.5 mL) subcut .COMPLEX #6 02/20/22 10/18/22 06/05/22 subcutaneous pen injector mL (Trulicity) betamethasone dipropionate 0.05 % 1 applic topical BID PRN Rash #60 05/19/22 10/18/22 06/06/22 topical cream grams irbesartan 300 mg tablet 300 mg PO QAM 05/30/22 10/18/22 06/05/22 diltiazem HCl 420 mg capsule,24 420 mg PO QPM #90 caps 07/19/22 10/18/22 Unknown hr,extended release metformin 500 mg tablet,extended 1,000 mg PO BID #360 tabs 07/19/22 10/18/22 Unknown release 24 hr mupirocin 2 % topical ointment 1 applic topical BID 7 days #15 08/24/22 10/18/22 Unknown grams Past Medical History Medical History Diabetes mellitus, type 2 History of colon cancer 1996 - treated surgically Hyperlipidemia No meds Hypertension Morbid obesity Sleep apnea CPAP (occasional use) Stomach ulcer Hx Exercise / Class Metabolic Activity II 4-5 Yardwork/Stairs/Walk up hill (one FS (no CP, no SOB), uses cane) Past Family History Family History Brother Family history of diabetes mellitus Mother Family hx of colon cancer Father Prostate cancer Uncle Prostate cancer Past Surgical History Surgical History H/O splenectomy x2 s/p accident History of appendectomy History of arthroscopy of left knee History of arthroscopy of left shoulder History of bowel resection 1996 History of colonoscopy Colonoscopy (06/06/22): MAC at [facility] History of esophagogastroduodenoscopy (EGD) History of rectal polypectomy History of repair of rotator cuff Left History of tonsillectomy History of total knee replacement Right History of umbilical hernia repair Status post right knee replacement Past Anesthesia History No Hx of Anesthesia Complications and No Family Hx of Anesthesia Complications History of PONV No Hx of PONV and No Hx of Motion Sickness Social History Smoking Status: Never smoker tobacco type: smokeless tobacco Do You Dip or Chew Tobacco: Yes (1 can every 2-3 days, advised none DOS) Hx Alcohol Use: Yes Alcohol type: beer alcohol intake frequency: holidays/special occasions only Hx Substance Use: No substance use type: does not use Review of Systems Patient denies chest pain, shortness of breath, dyspnea on exertion, fever, chills, cough, wheezing, palpitations. Physical Exam Vital Signs VITALS BP 162/94 P 84 TEMP 98.1 SP02 95%RA RESP 16 PHYSICAL Full cervical extension range of motion. Full TMJ range of motion. TMD 3 finger breaths Mallampati Score 3 Dentition: several missing teeth Lungs: clear throughout to auscultation Cardiac: regular rate and rhythm, no murmurs noted Spine: normal Carotid arteries: negative bruit Extremities: no LE edema Lab Results Anesthesia Preop Results Results Anesthesia Widget: WBC 8.08 K/ul (4.8-10.8) 10/19/22 Hgb 14.3 g/dl (14.0-18.0) 10/19/22 Hct 41.8 % (42.0-52.0) L 10/19/22 Plt 343 K/uL (130-400) 10/19/22 Na 137 mmol/L (136-145) 10/19/22 K 3.7 mmol/L (3.5-5.1) 10/19/22 Cl 104 mmol/L (98-107) 10/19/22 CO2 24 mmol/L (21-32) 10/19/22 BUN 20 mg/dl (6-23) 10/19/22 Creat 0.78 mg/dl (0.6-1.4) 10/19/22 Glucose Level 256 mg/dl (70-99(Fasting)) H 10/19/22 PT 10.4 Seconds (9.0-12.0) 10/19/22 PTT 27.9 Seconds (21.0-31.0) 10/19/22 INR 0.9 (0.9-1.1) 10/19/22 HA1c 7.6 % (4.5-5.6) H 10/19/22 Urine Color Yellow 08/24/22 Urine Appearance Clear (Clear) 08/24/22 Urine pH 5.5 (4.5-7.5) 08/24/22 Urine Specific [place] 1.028 (1.000-1.030) 08/24/22 Urine Protein 4+ (Negative) H 08/24/22 Urine Glucose (UA) 3+ (Negative) H 08/24/22 Urine Ketones 1+ (Negative) H 08/24/22 Urine Blood 1+ (Negative) H 08/24/22 Urine Nitrite Negative (Negative) 08/24/22 Urine Bilirubin Negative (Negative) 08/24/22 Urine Urobilinogen Negative (Negative) 08/24/22 Urine Leukocyte Esterase Negative (Negative) 08/24/22 Urine WBC (Auto) 1-5 /hpf (0-5) 08/24/22 Urine RBC (Auto) 10-30 /hpf (0-4) H 08/24/22 Urine Hyaline Casts (Auto) 1-5 /lpf (0-5) 08/24/22 Urine Epithelial Cells (Auto) 20-30 /lpf (0-5) H 08/24/22 Urine Bacteria (Auto) Negative (Negative) 08/24/22 Blood Type O Positive 10/19/22 Antibody Screen NEGATIVE 10/19/22 Testing Laboratory Results Surgeon's office made aware of glucose/A1C* Electrocardiogram Date: 10/19/22 SR with first degree AVB at 84bpm. LAD. Chest X-Ray Date: 10/19/22 FINDINGS: Lung volumes are normal. Lungs are clear. There is no pneumothorax or pleural effusion. Cardiac size is stable. Mediastinal contours are normal. There is no evidence for pulmonary edema. IMPRESSION: No acute cardiopulmonary findings. COVID-19 Risk Screen Screening Information COVID-19 Screen Date: 10/19/22 Exposure 21 Days Family/Household +COVID Last 21 Days: No Exposure 10 Days Any COVID Exposure Last 10 Days: No Symptoms Last 10 Days Experienced COVID Sx Last 10 Days: No + COVID 0-90 Days COVID + in Last 0-90 Days: No
[~2022-10-31 05:12] MED LIST changes: -AMOX500C3 PO; -DILT1CAP15 PO; -FEXO1TAB49 PO; -GLC/500 PO; +General Order Problem(s) SCH; -LISI40TA PO; -TADA10TA PO
[2022-10-31] MEDS ORDERED: Scopolamine 1 MG TDSY TD SCH (06:00)
[2022-10-31] MEDS ORDERED: CeleBREX 200 MG CAP PO SCH (06:00)
[2022-10-31] MEDS ORDERED: ACETAMINOPHEN 500 MG TAB PO SCH ×2 (06:00→10:51)
[2022-10-31] MEDS ORDERED: LR 500ML BOLUS, THEN 15ML/HR IV SCH (06:00)
[2022-10-31] MEDS ORDERED: BUPIVACAINE LIPOSOME/PF 266 MG, BUPIVACAINE/EPINEPHRINE 50 ML, SODIUM CHLORIDE 0.9% PF ... INFIL SCH (06:00)
[2022-10-31] MEDS ORDERED: FAMOTIDINE 20 MG TAB PO SCH (06:00)
[2022-10-31] MEDS ORDERED: LR 60ML/HR IV SCH (06:00)
[2022-10-31] MEDS ORDERED: METOCLOPRAMIDE HCL 10 MG TABLET PO SCH (06:00)
[2022-10-31] MEDS ORDERED: TRANEXAMIC ACID 1,000 MG **IV Intra-op IV SCH (06:00)
[2022-10-31] MEDS ORDERED: EPINEPHrine INJ 1 MG/ML AMP ONE (06:02)
[2022-10-31] MEDS ORDERED: BUPIVACAINE 0.25% PF 30 ML VIAL ONE (06:02)
[2022-10-31] MEDS ORDERED: DEXAMETHASONE SOD INJ 4 MG/ML VIAL ONE (06:02)
[2022-10-31] MEDS ORDERED: BUPIVACAINE 0.5 % 5 MG/1 ML PF 10ML VIAL ONE (06:02)
[2022-10-31] MEDS ORDERED: fentaNYL citrate PF 100 MCG/2 ML VIAL ONE (06:39)
[2022-10-31] MEDS ORDERED: MIDAZOLAM HCL 1 MG/ML 2ML VIAL ONE ×2 (06:39→06:47)
[2022-10-31] MEDS ORDERED: BUPIVACAINE/EPINEPHRINE 0.25% 1:200,000 30 ML VIAL ONE (06:40)
[2022-10-31] MEDS ORDERED: SODIUM CHLORIDE 0.9% PF 50 ML VIAL ONE (06:40)
[2022-10-31] MEDS ORDERED: BUPIVACAINE LIPOSOME 1.3% 266 MG/20 ML VIAL ONE (06:41)
[2022-10-31] MEDS ORDERED: PROPOFOL IV EMULSION 10 MG/ML 20 ML VIAL IV ONE ×6 (06:48→08:11)
--- NOTE | 2022-10-31 06:52 | History & Physical Bridge Note ---
Date of Service October 31, 2022 History & Physical Bridge Note I have examined the patient, reviewed the History & Physical and in the interval since the performance of the History & Physical I have noted the following changes of clinical significance: no changes noted
[2022-10-31] MEDS ORDERED: ONDANSETRON INJ 2 MG/ML 2 ML VIAL IV PRN ×2 (07:10→10:51)
[2022-10-31] MEDS ORDERED: ATROPINE SULFATE 0.1 MG/ML 10ML SYR IV PRN (07:10)
[2022-10-31] MEDS ORDERED: fentaNYL citrate PF 100 MCG/2 ML VIAL IV PRN (07:10)
[2022-10-31] MEDS ORDERED: ePHEDrine sulfate 50 MG/ML AMP IV PRN (07:10)
[2022-10-31] MEDS ORDERED: VANCOMYCIN HCL 1000MG/20ML VIAL ONE (07:11)
[2022-10-31] MEDS ORDERED: ONDANSETRON INJ 2 MG/ML 2 ML VIAL ONE (07:15)
[2022-10-31] MEDS ORDERED: KETAMINE 50 MG/5 ML SYRINGE ONE (07:16)
--- NOTE | 2022-10-31 08:58 | Operative Report ---
PG Post Operative Report Pre & Post Diagnosis Operation Date: 10/31/22 07:00 Pre-Op Diagnosis: Left Knee Degenerative Joint Disease Post-Op Diagnosis: Left Knee Degenerative Joint Disease I identified the patient and participated in the time-out.: Yes Procedure Operation Date: 10/31/22 07:00 Actual Procedures p Left Total Knee Arthroplasty(Left) - Jett Trinidad MD Surgeon Jett Trinidad MD Chief Resource Officer Compa Ayala PA-C Estimated Blood Loss 50 Findings Consistent with Post-Op Diagnosis Operative findings were advanced left knee DJD. Pretty extensive grade 4 [id number] disease of the anteromedial compartment. Had less severe and spotty to grade 4 changes the patellofemoral joint as well as the lateral compartment. He had a varus deformity to his knee with a moderate-sized knee joint effusion. Specimens Left knee sent for pathology Drains None Anesthesia Type Spinal MAC Complications none Disposition Accompanied Patient To Recovery: No Indications Patient is 66-year-old gentleman with multiple medical comorbidities has had a long history of knee problems. He had his right knee replaced about 10 years ago. Over the past several years he has developed increased pain discomfort in his left knee. Failed all conservative measures. X-rays show advanced left knee arthritis. He elected proceed with total knee arthroplasty. Patient was then medically optimized preoperatively by his primary care physician. Description of Procedure Operative implants consisted of: 1 Biomet Vanguard size 70 left posterior stabilized femoral component. 2. Biomet size 83 tibial tray. 3. 10 mm posterior stabilized polyethylene insert. 4. 31 x 8 all poly patella. Patient was taken the operating, identified, placed on the operating table supine position. All contact areas were properly padded. IV antibiotics tried by anesthesia team. A spinal anesthetic and abductor canal block had provided in the holding area. A left thigh tourniquet was then placed. The left lower extremities then prepped and draped in usual sterile fashion. The left leg was elevated exsanguinated with use of an Esmarch and the tourniquet was placed 300 mmHg. An anterior approach the left knee was then performed through a longitudinal incision centered over the patella. Sharp dissection was carried through subcutaneous tissues down the extensor mechanism. He did some scarring around his patella from the previous laceration and healing. A medial parapatellar arthrotomy incision was made. Some subperiosteal dissection was carried out medially. The fat pad was resected from Neath patella tendon. The patellofemoral ligament was released. Patella subluxated laterally and the knee was flexed. The osteophytes taken off distal femur. The ACL and PCL were then released from distal femur the tibia subluxated anteriorly. The external tibial alignment jig was then placed in the interface the tibia and adjusted 14 mm medially. Proximal tibial cut was made remove about a millimeter bone from most deficient aspect medial tibial plateau. Some osteophytes were taken off medial and posterior medially. The tibia sized to a size 83. Attention drawn the femur. The distal femur examined the sharp drop with intramedullary canal was suction. A left 6 degree valgus cutting guide was placed. Distal femoral cutting block was pinned in place. Distal femoral cut was made to take an additional 3 mm bone off distal femur. The femur was then sized to a size 70. The AP cutting block was pinned parallel to the epicondylar axis which was 5 degrees of external rotation. Anterior cut, anterior chamfer, posterior cut, posterior chamfer cuts were made. The box cutting guide was placed in a just slight lat eral and the box cut was made. The knee was flexed. The remnants of the medial and lateral menisci were excised. The osteophytes taken off the posterior aspect of femur. A trial femoral component was placed. The tibial tray was pinned in maximum external rotation and the drill and stem punch used to create defect in proximal tibia for the tibial tray. The knee was then trialed and the 10 mm insert fit most appropriately. Attention drawn the patella. The patella was cleaned of all soft tissues. Patella thickness measured 24 mm in thickness was cut down to 15. Was sized to a size 31 patella. The lug holes were drilled for the 31 patella. The lateral osteophytes removed. Patella button was placed. Knee was taken through range of motion and the patella tracked nicely with no thumbs test. Attention drawn to placing the permanent components. Nupathe all trial components were removed. A bone plug was placed in the femur limit of blood loss. A double batch [place] G cement was mixed. I did add an additional gram of vancomycin due to his multiple medical comorbidities including morbid obesity and poorly controlled diabetes. A [employer] size 70 left posterior stabilized femoral component, size 83 tibial tray, a 10 mm posterior stabilized polyethylene insert, and a 31 x 8 all poly patella then cemented in place. Knee was brought out in full extension till cement hardened. Final cement check was then performed. The pericapsular tissues were injected with total of 100 cc of combination of 20 of Exparel, 30 cc normal saline, 50 cc of quarter percent Marcaine with epinephrine. Patient did receive 1 g tranexamic acid. The tourniquet was then let down for final tourniquet time 62 minutes. Hemostasis assured with electrocautery. Extensor mechanism then closed with combination 1 PDS suture #1 Vicryl suture in [id number] fashion. Extensor mechanism checked found to be intact and the subcutaneous tissue then closed with 2 Dexon suture in a buried interrupted fashion skin was closed skin ronn. Leg was then cleaned and dried and sterile dressing was Xeroform, 4 x 4's, sterile cast padding, Bill bandage were applied. The patient then transferred to the recovery room in stable condition. Patient tolerated procedure well and there were no complications. Compa Ayala, my physician graduate assistant athletic trainer, was present for the entire procedure. His assistance was essential and required for appropriate patient positioning, prepping and draping, surgical exposure, performing the technical details of the operation, placement the implants, closure of the wound, and placement of the sterile bandage. I attest to the content of the Intraoperative Record and any orders documented therein. Any exceptions are noted below.
--- NOTE | 2022-10-31 09:46 | XRay Report ---
TWO VIEWS LEFT KNEE CLINICAL HISTORY: Postoperative examination. FINDINGS: AP and crosstable lateral portable views of the left knee are obtained. A left knee arthrop lasty is in near anatomic alignment. There has been undersurface remodeling of the patella. No acute fracture is seen. There are expected postoperative changes around the knee including skin clips, soft tissue edema, and subcutaneous gas. IMPRESSION: Expected postoperative changes status post left knee arthroplasty. No acute fracture is s een. ACT 112: Negative or not required by law. Electronically signed by: Canelo Cast M.D. 10/31/2022 9:45 AM
[2022-10-31] MEDS ORDERED: METOCLOPRAMIDE HCL INJ 5 MG/ML 2 ML VIAL IV PRN (10:51)
[2022-10-31] MEDS ORDERED: CARBOHYDRATES FOR HYPOGLYCEMIA PO PRN (10:51)
[2022-10-31] MEDS ORDERED: NON-FORMULARY MEDICATION (Dulaglutide [Trulicity] 1.5 mg/0.5 mL pen injector) SQ SCH (10:51)
[2022-10-31] MEDS ORDERED: ALUMINUM/MAGNESIUM SUSP 30 ML UDC PO PRN (10:51)
[2022-10-31] MEDS ORDERED: MAGNESIUM HYDROXIDE SUSP 30 ML UDC PO PRN (10:51)
[2022-10-31] MEDS ORDERED: bisacodyL 10 MG SUPP PR PRN (10:51)
[2022-10-31] MEDS ORDERED: NON-FORMULARY MEDICATION (Multivitamin Tablet,Chewable) PO SCH (10:51)
[2022-10-31] MEDS ORDERED: NALOXONE HCL 0.4 MG/1 ML VIAL/CARP IV PRN (10:51)
[2022-10-31] MEDS ORDERED: PHARMACY GLYCEMIC MGMT CONSULT PRN (10:51)
[2022-10-31] MEDS ORDERED: GLUCAGON FOR INJ 1 MG VIAL SQ PRN (10:51)
[2022-10-31] MEDS ORDERED: DEXTROSE 50% 50 ML SYRINGE IV PRN (10:51)
[2022-10-31] MEDS ORDERED: HYDROmorphone HCL 2 MG TAB PO PRN (10:51)
[2022-10-31] MEDS ORDERED: GLUCOSE 10 TAB/TUBE PO PRN (10:51)
[2022-10-31] MEDS ORDERED: HYDROmorphone INJ 0.5 MG/0.5 ML SYR IV PRN (10:51)
[2022-10-31] MEDS ORDERED: SENNA 8.6 MG TAB PO SCH ×2 (10:51→21:00)
[2022-10-31] MEDS ORDERED: IRBESARTAN 150 MG TAB PO SCH (10:51)
[2022-10-31] MEDS ORDERED: GLUCOSE 40% GEL 15 GM TUBE PO PRN (10:51)
[2022-10-31] MEDS ORDERED: BETAMETHASONE DIP AUG (DIPROLENE) 0.05% CR 15 GM TUBE EXT PRN (10:56)
--- NOTE | 2022-10-31 10:59 | Anesthesiology Progress Note ---
Date of Service October 31, 2022 Anesthesia Post Procedure Vital Signs Vital Signs: Temp Pulse Resp BP BP Pulse Ox O2 Del Method 10/31/22 10:25 55 L 14 128/72 95 Room Air 10/31/22 10:15 36.4 C L 60 19 136/76 95 Room Air 10/31/22 10:05 59 L 14 133/76 94 Room Air 10/31/22 09:55 57 L 14 121/66 94 Room Air 10/31/22 09:45 60 15 143/75 H 95 Room Air 10/31/22 09:35 58 L 14 114/61 93 Room Air 10/31/22 09:25 66 17 152/77 H 93 Room Air 10/31/22 09:15 66 17 150/73 H 93 Room Air 10/31/22 09:05 70 16 137/73 96 Oxymask 10/31/22 08:58 36.9 C 86 16 112/68 95 Oxymask 10/31/22 05:48 36.5 C 65 18 156/95 H 95 Room Air O2 Flow Rate 10/31/22 10:25 10/31/22 10:15 10/31/22 10:05 10/31/22 09:55 10/31/22 09:45 10/31/22 09:35 10/31/22 09:25 10/31/22 09:15 10/31/22 09:05 5 10/31/22 08:58 5 10/31/22 05:48 Transfer of Care Handoff Completed per policy Notes Mental Status: alert / awake / arousable Patient Amnestic to Procedure: Yes Nausea / Vomiting: adequately controlled Pain: adequately controlled Airway Patency, RR, SpO2: stable & adequate BP & HR: stable & adequate Hydration State: stable & adequate Neuraxial Anesthesia: was administered and sensory block is resolving Anesthetic Complications: no major complications apparent and Pt Satisfied with anesthetic care
[2022-10-31] MEDS: SODIUM CHLORIDE 0.9% 1000ML 1,000 ML IV SCH ×2 (11:34→18:12)
[2022-10-31] MEDS ORDERED: LANTUS PER UNIT CHARGE SC ONE (11:45)
[2022-10-31] MEDS: MUPIROCIN 2% OINT 22 GM TUBE TOP SCH ×2 (12:06→19:37)
[2022-10-31] MEDS: TAMSULOSIN HCL 0.4 MG CAP PO SCH (12:07)
[2022-10-31] MEDS: DOCUSATE SODIUM 100 MG CAP PO SCH ×2 (12:07→19:35)
[2022-10-31] MEDS: MULTIVITAMIN TAB PO SCH (12:08)
[2022-10-31] MEDS: ASPIRIN 81 MG ECTAB PO SCH ×3 (12:16→19:35)
[2022-10-31] MEDS: INSULIN ASPART PER UNIT CHARGE SC SCH ×3 (12:47→21:22)
[2022-10-31] MEDS: KETOROLAC TROMETHAMINE 15 MG/ML VIAL IV SCH ×3 (12:48→23:07)
[2022-10-31] MEDS: LOSARTAN POTASSIUM 50 MG TAB PO SCH (13:03)
--- NOTE | 2022-10-31 14:39 | Pharmacy Report ---
Pharmacy Glycemic Short Note 2 - Date of Service October 31, 2022 - Glycemic Short BSG Results (Last 24 hours): 10/31/22 10/31/22 10/31/22 05:43 09:07 11:57 POC Glucose 135 H 180 H 179 H OUTPATIENT ANTIDIABETIC REGIMEN: * Trulicity 1.5mg SQ weekly * Metformin 1gm PO BID * HbA1c: 7.6% (10/19/22) ASSESSMENT: * Mr Cooper is a 66yo diabetic M, POD 0 s/p L TKA w/ Dr Trinidad this morning. * It appears as though pt received one dose of IV DXM pre-operatively. This is likely to contribute to hyperglycemia. * Pt was initiated on SQ basal/bolus insulin regimen on admission. * Will continue to follow and adjust regimen as indicated. PLAN FOR INPATIENT GLYCEMIC CONTROL: * Hold outpatient oral diabetes medications * Basal insulin * Lantus 20 units SQ x1 dose on admission * will re-eval 11/01 * Bolus insulin * NovoLog per scale ACHS or Q6hrs while NPO * Goal Range: Low 110 mg/dL - High 140 mg/dL * Correction Factor: 25 mg/dL/unit * Nutritional / Prandial insulin per carb ratio of 1 unit per 9 grams CHO consumed
[2022-10-31] MEDS ORDERED: TRANEXAMIC ACID / 0.7% NACL 1,000 MG/100 ML BAG IV SCH (15:00)
[2022-10-31] MEDS: Scopolamine CHECK PATCH PLACEMENT SCH ×2 (15:41→23:41)
[2022-10-31] MEDS: ceFAZolin 2000MG 2,000 MG/15 ML SYR IV SCH ×2 (15:42→23:06)
[2022-10-31] MEDS: ASCORBIC ACID 500 MG TAB PO SCH (18:04)
[2022-10-31] MEDS ORDERED: dilTIAZem HCL 120 MG CAPCR PO SCH (21:00)
[2022-10-31] MEDS ORDERED: FEXOFENADINE HCL 180 MG TAB PO SCH (21:00)
[2022-10-31] MEDS ORDERED: dilTIAZem HCL 300 MG CAPCR PO SCH (21:00)
[2022-10-31] MEDS: ACETAMINOPHEN 500 MG TAB PO SCH (21:22)
[2022-11-01] MEDS: KETOROLAC TROMETHAMINE 15 MG/ML VIAL IV SCH (05:22)
[2022-11-01] MEDS: ACETAMINOPHEN 500 MG TAB PO SCH (05:22)
[2022-11-01] MEDS: ASCORBIC ACID 500 MG TAB PO SCH (07:16)
[2022-11-01] MEDS: Scopolamine CHECK PATCH PLACEMENT SCH (07:16)
[2022-11-01] MEDS: ASPIRIN 81 MG ECTAB PO SCH (07:16)
[2022-11-01] MEDS: DOCUSATE SODIUM 100 MG CAP PO SCH (07:17)
[2022-11-01] MEDS: TAMSULOSIN HCL 0.4 MG CAP PO SCH (07:17)
[2022-11-01] MEDS: MULTIVITAMIN TAB PO SCH (07:17)
[2022-11-01] MEDS: LOSARTAN POTASSIUM 50 MG TAB PO SCH (07:18)
[2022-11-01] MEDS: MUPIROCIN 2% OINT 22 GM TUBE TOP SCH (07:19)
[2022-11-01] MEDS: INSULIN ASPART PER UNIT CHARGE SC SCH (07:26)
[2022-11-01 07:41] LABS: Hematocrit (blood only) 32.4 % (42.0-52.0); Hemoglobin 11.1 g/dl (14.0-18.0); Mean Corpuscular Hemoglobin 29.7 pg (25.0-34.0); Mean Corpuscular Hgb Conc 34.3 g/dL (32.0-36.0); Mean Corpuscular Volume 86.6 fL (80.0-100.0); Mean Platelet Volume 11.5 fL (9.4-12.4); Platelet Count 329 K/uL (130-400); RDW Coefficient of Variation 13.1 % (11.5-14.5); RDW Standard Deviation 41.2 fL (36.4-46.3); Red Blood Count 3.74 M/uL (4.70-6.10); White Blood Count 13.06 K/ul (4.8-10.8)
[2022-11-01 07:45] LABS: BUN Creatinine Ratio 17.1 (10-20); Calcium 8.3 mg/dl (8.6-10.3); Creatinine Clr Calc Pharmacy 67.1 ml/min; Est GFR (African American) 59.4 ml/min; Est GFR (Non-African American) 51.3 ml/min
--- NOTE | 2022-11-01 10:02 | Progress Notes ---
DATE OF SERVICE: 11/01/2022 SUBJECTIVE: A 66-year-old gentleman with multiple medical comorbidities, postoperative day 1 from le ft knee replacement. He is doing quite well. Therapy went well. Pain is controlled. Denies any ch est pain or shortness of breath. Not feeling dizzy or lightheaded. OBJECTIVE: VITAL SIGNS: Temperature 36.8. Vital signs are stable. PHYSICAL EXAMINATION: GENERAL: Shows a pleasant middle-aged male. He is sitting up on his bed chair and looks pretty comf ortable. EXTREMITIES: Examination of the left leg reveals the dressing to be in place. A little bit of blood y drainage inferiorly. He can do a pretty good straight leg raise. He can dorsiflex and plantarflex his foot appropriately. NEUROLOGIC: He is neurologically intact. LABORATORY DATA: Hemoglobin 11.1. Hematocrit 32.4. Electrolytes are stable. ASSESSMENT: A 66-year-old gentleman postoperative day 1 from left knee replacement, doing pretty wel l. Pain is controlled. He is neurologically intact. He is hoping to go home. PLAN: 1. DVT prophylaxis to include thigh-high TEDs, SCDs, and aspirin twice a day. 2. PT/OT, weightbear as tolerated. Left total knee protocol. 3. Pain control, doing okay with current pain regimen. 4. Disposition: Plan to discharge to home with some home health likely later today. Job ID: [id number]
--- NOTE | 2022-11-03 07:47 | Discharge Summary ---
Date of Service November 03, 2022 Discharge Data Procedures Performed Operation Date: 10/31/22 07:00 Actual Procedures p Left Total Knee Arthroplasty(Left) - Jett Trinidad MD Hospital Course (1) Status post total left knee replacement: This is a 66 year old patient admitted on 10/31/22 and underwent total knee arthroplasty. He tolerated the procedure well and there were no complications. Transferred to the PACU post op and later to the orthopedic floor for further care. He was given ancef for antibiotic prophylaxis. He was also given JOSE stockings, SCDs, and aspirin for DVT prophylaxis. Hemoglobin, hematocrit, and vital signs were monitored during his hospital stay and remained stable. Did not require any blood transfusions. There were no complications during his hospital stay. By post op day #1 the patient was tolerating a diabetic diet, pain was reasonably controlled with oral pain medicine, and he was participating in physical therapy. On post op day #1 the patient was discharged home and set up with home health care. He was given printed discharge instructions including prescriptions for extra strength tylenol, aspirin, cefadroxil, ketorolac, hydromorphone, zofran, senokot, and flomax. Continue physical therapy, weight bearing as tolerated. Continue JOSE stockings. Follow up approximately 2 weeks post op or sooner if there are problems or concerns. Coding Level of Care Code None Diagnoses Status post total left knee replacement Z96.652
== END 2022-11-01 11:21 | disposition home health service (06) ==
LOC: 3E 05:12 → ASU 05:12

== ENCOUNTER 2024-06-05 13:54 | Inpatient (IN) ==
[2024-06-05 14:42] LABS: Basophils # (auto) 0.03 K/uL (0.00-0.20); Basophils % (auto) 0.2 %; Eosinophils # (auto) 0.01 K/uL (0.00-0.50); Eosinophils % (auto) 0.1 %; Hematocrit (blood only) 47.5 % (42.0-52.0); Hemoglobin 16.3 g/dl (14.0-18.0); Immature Granulocytes # (auto) 0.14 K/uL (0.01-0.20); Immature Granulocytes % (auto) 0.9 %; Lymphocytes # (auto) 1.15 K/uL (1.20-3.40); Lymphocytes % (auto) 7.1 %; Mean Corpuscular Hemoglobin 29.2 pg (25.0-34.0); Mean Corpuscular Hgb Conc 34.3 g/dL (32.0-36.0); Mean Corpuscular Volume 85.1 fL (80.0-100.0); Mean Platelet Volume 12.5 fL (9.4-12.4); Monocytes # (auto) 1.76 K/uL (0.11-0.59); Monocytes % (auto) 10.9 %; Neutrophils # (auto) 13.12 K/uL (1.40-6.50); Neutrophils % (auto) 80.8 %; Platelet Count 375 K/uL (130-400); RDW Coefficient of Variation 12.1 % (11.5-14.5); RDW Standard Deviation 37.8 fL (36.4-46.3); Red Blood Count 5.58 M/uL (4.70-6.10); White Blood Count 16.21 K/ul (4.8-10.8)
[2024-06-05] MEDS: SODIUM CHLORIDE 0.9% 1,000 ML IV SCH (14:48)
--- NOTE | 2024-06-05 14:55 | CT Scan Report ---
CT head/brain wo con CLINICAL HISTORY: confusion. TECHNIQUE: Multiple axial CT images of the head were obtained without contrast. A dose lowering tech nique was utilized adhering to the principles of ALARA. CT DOSE: 2667 COMPARISON: None FINDINGS: No intracranial hemorrhage seen. No mass effect, midline shift, or hydrocephalus. No skull fracture seen. Visualized paranasal sinuses and mastoid air cells are clear. IMPRESSION: No acute findings. ACT 112: Negative or not required by law. The above report was generated using voice recognition software. It may contain grammatical, syntax o r spelling errors. Electronically signed by: Kevin Valenzuela M.D. 06/05/2024 2:53 PM
[2024-06-05 15:00] LABS: Albumin Level 3.7 gm/dl (3.4-5.0); Bilirubin Direct 0.1 mg/dl (0-0.2); Bilirubin,Total 0.5 mg/dl (0.2-1.0); Magnesium 3.5 mg/dl (1.7-2.4); Potassium 5.6 mmol/L (3.5-5.1); Total Protein 7.3 gm/dl (6.0-8.3)
--- NOTE | 2024-06-05 15:10 | CT Scan Report ---
CT abd pelvis wo con CLINICAL HISTORY: AMS, vomiting TECHNIQUE: Helical axial images of the abdomen and pelvis were obtained. Automated dose lowering tech niques and/or adjustment according to patient size were utilized for this exam. This exam was perfor med without intravenous contrast. CT DOSE: 2667.19 mGy.cm COMPARISON: Comparison is made to CT abdomen pelvis 11/09/2023 FINDINGS: Lower chest: No acute abnormality. Liver: Hepatic steatosis is noted. Gallbladder and biliary tree: Cholelithiasis is seen without evidence of cholecystitis. No intra- or extrahepatic biliary ductal dilation. Pancreas: Peripancreatic fat stranding is seen. Spleen: Patient is status post splenectomy. Adrenals: Unremarkable. Kidneys and ureters: Nonobstructive nephrolithiasis is seen. Hepatic cysts are seen with additional s ubcentimeter hypodensities which are too small to characterize Bladder: Unremarkable. Reproductive organs: Unremarkable. Bowel: Surgical changes of colocolonic anastomosis are seen in the colon. Diverticulosis is seen with out diverticulitis. Hiatal hernia is seen. Lymph nodes Retroperitoneal: Unremarkable. Pelvic: Unremarkable. Mesenteric: Unremarkable. Peritoneum: Fat stranding is seen. Vessels: Atherosclerotic calcifications are seen. Abdominal wall: Supra helical hernia contains a loop of nondilated bowel. Bones: Degenerative changes in the visualized spine. IMPRESSION: 1. Peripancreatic fat stranding is seen compatible with acute pancreatitis. No evidence of acute per ipancreatic fluid collection. 2. Nonobstructive stones are seen in the kidneys. 3. Hepatic steatosis. 4. Diverticulosis without diverticulitis. Postsurgical changes of low anterior resection with coloco lonic anastomosis. 5. Cholelithiasis without cholecystitis. 6. Additional findings as above. ACT 112: Negative or not required by law. Electronically signed by: Tristian Gaines M.D. 06/05/2024 3:09 PM
[2024-06-05 15:13] LABS: Troponin I High Sensitivity 18.5 pg/ml (0-20)
--- NOTE | 2024-06-05 15:23 | XRay Report ---
XR chest 1V portable CLINICAL HISTORY: Sepsis TECHNIQUE: Single frontal radiograph of the chest was obtained. Comparison: Comparison is made to chest radiograph 11/10/2022 FINDINGS: No lines and tubes are seen. The aorta is tortuous. The remainder of the cardiomediastinal silhouette is unremarkable. The lungs are clear. No evidence of pleural effusion or pneumothorax. IMPRESSION: No acute abnormalities and in particular no radiographic evidence of pneumonia. ACT 112: Negative or not required by law. Electronically signed by: Tristian Gaines M.D. 06/05/2024 3:21 PM
[2024-06-05 15:32] LABS: Adenovirus PCR Not Detected (NotDetected); Bordetella parapertussis PCR Not Detected (NotDetected); Bordetella pertussis PCR Not Detected (NotDetected); Chlamydia pneumoniae PCR Not Detected (NotDetected); Coronavirus 229E PCR Not Detected (NotDetected); Coronavirus CoV-2 (COVID19)PCR Not Detected (NotDetected); Coronavirus HKU1 PCR Not Detected (NotDetected); Coronavirus NL63 PCR DETECTED (NotDetected); Coronavirus OC43PCR Not Detected (NotDetected); Human Metapneumovirus PCR Not Detected (NotDetected); Influenza A PCR Not Detected (NotDetected); Influenza B PCR Not Detected (NotDetected); Mycoplasma pneumoniae PCR Not Detected (NotDetected); Parainfluenza Virus 1 PCR Not Detected (NotDetected); Parainfluenza Virus 2 PCR Not Detected (NotDetected); Parainfluenza Virus 3 PCR Not Detected (NotDetected); Parainfluenza Virus 4 PCR Not Detected (NotDetected); Respiratory Syncytial VirusPCR Not Detected (NotDetected); Rhinovirus/Enterovirus PCR Not Detected (NotDetected)
[2024-06-05] MEDS: SODIUM CHLORIDE 0.9% 1,000 ML IV ONE (15:36)
[2024-06-05] MEDS ORDERED: CARBOHYDRATES FOR HYPOGLYCEMIA PO PRN (15:43)
[2024-06-05] MEDS ORDERED: GLUCOSE 10 TAB/TUBE PO PRN (15:43)
[2024-06-05] MEDS ORDERED: DEXTROSE 50% 50 ML SYRINGE IV PRN (15:43)
[2024-06-05] MEDS ORDERED: GLUCAGON FOR INJ 1 MG VIAL SQ PRN (15:43)
[2024-06-05] MEDS ORDERED: PHARMACY GLYCEMIC MGMT CONSULT PRN (15:43)
[2024-06-05] MEDS ORDERED: GLUCOSE 40% GEL 15 GM TUBE PO PRN (15:43)
[2024-06-05 16:09] LABS: Appearance Urine Clear (Clear); Bacteria Urine Automated None Seen (None Seen); Bilirubin Urine Negative (Negative); Blood Urine 2+ (Negative); Color Urine Yellow; Epithelial Cell Urine Auto 0-2 /hpf (0-2); Glucose Urine UA 3+ (Negative); Ketones Urine 1+ (Negative); Leukocyte Esterase Urine 1+ (Negative); Nitrite Urine Negative (Negative); Protein Urine 1+ (Negative); Specific Gravity Urine 1.027 (1.000-1.030); Urobilinogen Urine Negative (Negative); WBC Urine Automated 21-50 /hpf (0-5)
[2024-06-05] MEDS: INSULIN REGULAR 250 UNITS in SODIUM CHLORIDE 0.9% 247.5 ML IV SCH (16:09)
[2024-06-05 16:14] LABS: iSTAT Arterial Blood Gas HCO3 7 meg/L (19-24); iSTAT Arterial Blood Gas pCO2 16 mmHg (35-46); iSTAT Arterial Blood Gas pH 7.24 (7.35-7.45); iSTAT Arterial Blood Gas pO2 112 mmHg (80-95); iSTAT Carbon Dioxide 7 mmol/L (24-31); iSTAT Hematocrit 44 % (42-52); iSTAT Potassium 4.8 mmol/L (3.3-5.0); iSTAT Sodium 128 mmol/L (135-144)
--- NOTE | 2024-06-05 16:30 | History & Physical Report ---
Date of Service June 05, 2024 Assessment & Plan (1) Acute pancreatitis: Plan: Severe per Zeeshan's criteria pending LDH - discussed with ICU attending Dr Brooks and patient accepted to the ICU No abdominal pain on exam but CT evidence with elevated lipase Triglycerides pending Hold GLP-1 2L NSS bolus given in the ER continue IV fluids per DKA protocol as below (2) Diabetic ketoacidosis: Plan: Continue IV insulin per DKA protocol Start half NSS @ 200ml/hr, add KCl to IV fluids once K < 5.1, add D5 to IV fluids once glucose in goal range 150-250 BSG q1h Switch to SQ insulin once anion gap closed BMP/Mg/PO/pH q4h overnight (3) Sepsis: Plan: ?urinary/diarrhea source Recent antibiotics with Augmentin/azithromycin for LRTI Biofire PCR - coronavirus NL63 Empiric ceftriaxone pending blood/cultures and stool PCR (noted history of splenectomy) (4) PHIL (acute kidney injury): Plan: No obstructive cause on CT Suspect pre-renal Continue to monitor BMP q4h (5) Type 2 diabetes mellitus with proteinuria: Plan: HbA1C pending, previously 8.2 in July 2023 Holding GLP-1 as above IV insulin as above (6) Obstructive sleep apnea of adult: Plan: CPAP HS - although he notes not using his home machine for years (7) Hypertension: Plan: Suspect some of his sinus tachycardia is rebound from holding diltiazem - will defer restarting this at a lower dose to ICU team Hold spironolactone, irbesartan Monitor on telemetry (8) H/O splenectomy: Plan VTE Prophylaxis - heparin 5000 units SQ q8h Diet - NPO Disposition - admit to ICU Admission and Anticipated Discharge Date Admission Date: June 05, 2024 History of Present Illness Chief Complaint: Altered mental state Primary Care Provider: Jose David Davenport DO Juan Cooper is a 68 year old male with T2DM who presents to the ER via EMS on advice of his due to altered mental state. She reports today he has been having hallucinations, generally weak and more confused than usual. He has been unwell for the last week and a half since the . Initially having headaches and thought he had a sinus infection. He took his Trulicity as usual on the . He remained most bed bound during this time. He went to his PCP on May 30 and diagnosed with a lower respiratory tract infection and given history of splenectomy was started on Augmentin and azithromycin. He reports compliance with taking antibiotics although felt increasingly worse on antibiotics with loss of appetite and eating and drinking less. He notes some diarrhea with melena and bright red blood in stool but is unsure about this. No abdominal pain, nausea or vomiting. He notes not taking any of his usual medications since Sunday. No specific urinary symptoms. He reports chills but no objective fevers. No prior episodes of pancreatitis. He reports no alcohol in the last week, occasional use prior to this. He takes Trulicity for his diabetes for the last few years but was increased approximately 6 months ago. Allergies Allergy/AdvReac Type Severity Reaction Status Date / Time Aminoglycosides Allergy Severe Localized Verified 06/05/24 15:36 swelling + rash bacitracin Allergy Severe Localized Verified 06/05/24 15:36 swelling + rash codeine Allergy Severe Flushing, Verified 06/05/24 15:36 hot flashes neomycin Allergy Severe Localized Verified 06/05/24 15:36 swelling + rash polymyxin B Allergy Severe Localized Verified 06/05/24 15:36 swelling + rash cat dander Allergy Intermediate Eye Verified 06/05/24 15:36 swelling, sneezing Home Medications Medication Instructions Recorded Confirmed Type CPAP Supplies #1 ea 01/23/19 05/30/24 Rx blood sugar diagnostic (NoteWagonTouch #10 ea 02/11/19 05/30/24 History Ultra Blue Test Strip) fexofenadine 180 mg tablet 180 mg PO HS 02/11/19 06/05/24 History lancets 33 gauge (OneTouch Delica #100 ea 02/11/19 05/30/24 History Lancets) betamethasone dipropionate 0.05 % 1 applic topical BID PRN Rash #60 05/19/22 06/05/24 Rx topical cream grams acetaminophen 500 mg tablet 1,000 mg PO TID PRN Pain 11/10/22 06/05/24 History (Tylenol Extra Strength) amoxicillin 500 mg capsule 2,000 mg PO DIRECTED PRN PRIOR 11/10/22 06/05/24 History TO DENTAL PROCEDURES Clinton Piña #1 ea 11/20/22 05/30/24 Rx diltiazem HCl 420 mg capsule,24 420 mg PO QPM #90 caps 04/02/24 01/23/25 Rx hr,extended release lhpzpygewuzp-ojnp-mbtjp acid 200 1 tab PO DAILY 10/17/23 06/05/24 History mcg-lutein 137.5 mcg chewable tablet (Adult Multivitamin (w-lutein)) dulaglutide 3 mg/0.5 mL 3 mg subcut WK 12/25/23 06/05/24 History subcutaneous pen injector (Trulicity) aspirin 81 mg tablet,delayed 81 mg PO DAILY 05/05/24 06/05/24 History release (Siri Low Dose Aspirin) irbesartan 300 mg tablet 300 mg PO DAILY #90 tabs 05/16/24 06/05/24 Rx spironolactone 50 mg tablet 50 mg PO DAILY #90 tabs 05/16/24 06/05/24 Rx Past Med/Surg History Problem List (Updated 06/05/24 @ 22:33 by Gerhard Orozco MD) Acute pancreatitis Diabetic ketoacidosis PHIL (acute kidney injury) Sepsis Lower respiratory infection (e.g., bronchitis, pneumonia, pneumonitis, pu lmonitis) Hypertension Class 3 severe obesity with serious comorbidity and body mass index (BMI) of 40.0 to 44.9 in adult Petechiae or ecchymoses Type 2 diabetes mellitus with proteinuria Poor compliance Ventral hernia Nephrolithiasis Erectile dysfunction Microscopic hematuria Left knee DJD Proteinuria (Chronic) Hypercholesterolemia (Chronic) Obstructive sleep apnea of adult (Chronic) H/O splenectomy (Chronic) HTN (hypertension) (Chronic) Peptic ulcer disease (Chronic) Medical History (Updated 06/05/24 @ 22:33 by Gerhard Orozco MD) History of rectal cancer Changing skin lesion Snoring Hemorrhoid Morbid obesity Encounter for pre-operative examination History of colon cancer 1996 - treated surgically Stomach ulcer Hx Sleep apnea CPAP (occasional use) Hyperlipidemia No meds Surgical History (Updated 05/05/24 @ 10:36 by Jose David Davenport DO) Status post total left knee replacement Status post right knee replacement History of appendectomy History of umbilical hernia repair History of rectal polypectomy History of arthroscopy of left shoulder History of arthroscopy of left knee History of repair of rotator cuff Left History of total knee replacement Right History of tonsillectomy History of appendectomy H/O splenectomy x2 s/p accident History of colonoscopy Colonoscopy (06/06/22): MAC at [facility] History of esophagogastroduodenoscopy (EGD) History of bowel resection 1996 Family History Brother Family history of diabetes mellitus Mother Family hx of colon cancer Father Prostate cancer Uncle Prostate cancer Social History (Updated 05/30/24 @ 11:19 by GERRI Garcia) Smoking Status: Never smoker Tobacco Type: Smokeless Tobacco (Dip or Chew) Second Hand Exposure: Yes; Do You Dip or Chew Tobacco: Yes (1 can every 2-3 days, advised none DOS); Hx Alcohol Use: Yes Alcohol type: beer Alcohol Intake Frequency: Monthly or Less Alcohol Intake Frequency Comment: 6-8 beers maybe 4-5 times a year Hx Substance Use: No Preferred Language: Tajik Communication Ability: Effective Hearing Ability: Normal 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 Beliefs That Will Affect Care: None marital status: Current Living Situation: Alone current occupational status: retired Other Information That Helps Us Care for You: No Feels Safe at Home: Yes Safety Concerns: Feels Safe At This Time Childhood Exposure to Second-Hand Smoke: Yes Diet: regular caffeine: No Dental Care, Regularly: Yes Physical Activity Frequency: Daily Seatbelt Use: always Sunscreen Use: Yes Assistive Devices: Glasses Review of Systems Review of Systems: All systems reviewed & are unremarkable except as noted in HPI & below Physical Exam Constitutional: WD/WN, vitals as above ENMT: Mouth: + dry oral mucous membranes Neck: trachea midline, no thyromegaly Respiratory: normal respiratory effort, lungs clear to auscultation Cardiovascular: RRR, no murmur, no edema Gastrointestinal (Abdomen): normal bowel sounds, soft, nontender, no hepatosplenomegaly Skin: no rashes, warm and dry Neurologic: moves all extremities, awake and + confused; no focal motor deficits Psychiatric: Orientation: alert, oriented to person and oriented to place; + not oriented to time Results & Data Results & Data Vital Signs (Past 12 Hours) Vital Signs Pulse Pulse Resp BP BP Pulse Ox O2 Del Method 06/05/24 15:33 105 H 22 159/119 H 95 Room Air 06/05/24 14:48 108 H 16 115/85 97 Room Air 06/05/24 14:14 110 H 18 147/106 H 98 Nasal Cannula 06/05/24 14:12 113 H O2 Flow Rate 06/05/24 15:33 06/05/24 14:48 01/23/25 14:14 2 06/05/24 14:12 Laboratory Results Abnormal lab results 06/05/24 06/05/24 06/05/24 Range/Units 14:10 15:34 16:00 WBC 16.21 H (4.8-10.8) K/ul MPV 12.5 H (9.4-12.4) fL Neut # (Auto) 13.12 H (1.40-6.50) K/uL Lymph # (Auto) 1.15 L (1.20-3.40) K/uL [place] # (Auto) 1.76 H (0.11-0.59) K/uL POC pH 7.24 L (7.35-7.45) POC pCO2 16 L (35-46) mmHg POC pO2 112 H (80-95) mmHg POC HCO3 7 L (19-24) jairon/L POC Total CO2 7 L* (24-31) mmol/L POC Base Excess -21.0 L (-9-1.8) jairon/L POC ABG O2 Sat 98.0 H (90-95) % VBG pH (7.36-7.41) POC Sodium 128 L (135-144) mmol/L Sodium 126 L (136-145) mmol/L Potassium 5.6 H (3.5-5.1) mmol/L Chloride 88 L (98-107) mmol/L Carbon Dioxide 13 L (21-32) mmol/L Anion Gap 25 H (3-11) BUN 85 H (6-23) mg/dl Creatinine 2.30 H (0.6-1.4) mg/dl BUN/Creatinine Ratio 37.0 H (10-20) Glucose 837 H* (70-99(Fasting)) mg/dl POC Glucose (70-99) mg/dl Hemoglobin A1c 15.4 H (4.5-5.6) % Lactate 3.1 H* (0.4-2.0) mmol/L Calcium (8.6-10.3) mg/dl Phosphorus 6.6 H (2.5-4.9) mg/dl Magnesium 3.5 H (1.7-2.4) mg/dl Triglycerides (0-150) mg/dl Amylase 168 H (25-115) U/L Lipase 938 H (11-82) U/L Procalcitonin 0.62 H (0-0.5) ng/ml Urine Protein 1+ H (Negative) Urine Glucose (UA) 3+ H (Negative) Urine Ketones 1+ H (Negative) Urine Blood 2+ H (Negative) Ur Leukocyte Esterase 1+ H (Negative) Urine WBC (Auto) 21-50 H (0-5) /hpf Urine RBC (Auto) 6-10 H (0-2) /hpf U Hyaline Cast (Auto) 6-10 H (0-2) /lpf Urine Yeast Present A (None Prsent) Coronavirus NL63 (PCR) DETECTED A (NotDetected) 06/05/24 06/05/24 06/05/24 Range/Units 17:19 19:47 19:50 WBC (4.8-10.8) K/ul MPV (9.4-12.4) fL Neut # (Auto) (1.40-6.50) K/uL Lymph # (Auto) (1.20-3.40) K/uL [place] # (Auto) (0.11-0.59) K/uL POC pH (7.35-7.45) POC pCO2 (35-46) mmHg POC pO2 (80-95) mmHg POC HCO3 (19-24) jairon/L POC Total CO2 (24-31) mmol/L POC Base Excess (-9-1.8) jairon/L POC ABG O2 Sat (90-95) % VBG pH (7.36-7.41) POC Sodium (135-144) mmol/L Sodium 129 L (136-145) mmol/L Potassium (3.5-5.1) mmol/L Chloride 96 L (98-107) mmol/L Carbon Dioxide 9 L* (21-32) mmol/L Anion Gap 24 H (3-11) BUN 85 H (6-23) mg/dl Creatinine 2.14 H (0.6-1.4) mg/dl BUN/Creatinine Ratio 39.7 H (10-20) Glucose 729 H* (70-99(Fasting)) mg/dl POC Glucose 535 H* 536 H* (70-99) mg/dl Hemoglobin A1c (4.5-5.6) % Lactate 3.1 H* (0.4-2.0) mmol/L Calcium 8.3 L (8.6-10.3) mg/dl Phosphorus (2.5-4.9) mg/dl Magnesium (1.7-2.4) mg/dl Triglycerides 427 H (0-150) mg/dl Amylase (25-115) U/L Lipase (11-82) U/L Procalcitonin (0-0.5) ng/ml Urine Protein (Negative) Urine Glucose (UA) (Negative) Urine Ketones (Negative) Urine Blood (Negative) Ur Leukocyte Esterase (Negative) Urine WBC (Auto) (0-5) /hpf Urine RBC (Auto) (0-2) /hpf U Hyaline Cast (Auto) (0-2) /lpf Urine Yeast (None Prsent) Coronavirus NL63 (PCR) (NotDetected) 06/05/24 06/05/24 Range/Units 19:51 21:01 WBC (4.8-10.8) K/ul MPV (9.4-12.4) fL Neut # (Auto) (1.40-6.50) K/uL Lymph # (Auto) (1.20-3.40) K/uL [place] # (Auto) (0.11-0.59) K/uL POC pH (7.35-7.45) POC pCO2 (35-46) mmHg POC pO2 (80-95) mmHg POC HCO3 (19-24) jairon/L POC Total CO2 (24-31) mmol/L POC Base Excess (-9-1.8) jairon/L POC ABG O2 Sat (90-95) % VBG pH 7.25 L (7.36-7.41) POC Sodium (135-144) mmol/L Sodium 132 L (136-145) mmol/L Potassium (3.5-5.1) mmol/L Chloride (98-107) mmol/L Carbon Dioxide 14 L (21-32) mmol/L Anion Gap 19 H (3-11) BUN 78 H (6-23) mg/dl Creatinine 2.07 H (0.6-1.4) mg/dl BUN/Creatinine Ratio 37.7 H (10-20) Glucose 506 H* (70-99(Fasting)) mg/dl POC Glucose 402 H* (70-99) mg/dl Hemoglobin A1c (4.5-5.6) % Lactate (0.4-2.0) mmol/L Calcium 7.7 L (8.6-10.3) mg/dl Phosphorus (2.5-4.9) mg/dl Magnesium 3.2 H (1.7-2.4) mg/dl Triglycerides (0-150) mg/dl Amylase (25-115) U/L Lipase (11-82) U/L Procalcitonin (0-0.5) ng/ml Urine Protein (Negative) Urine Glucose (UA) (Negative) Urine Ketones (Negative) Urine Blood (Negative) Ur Leukocyte Esterase (Negative) Urine WBC (Auto) (0-5) /hpf Urine RBC (Auto) (0-2) /hpf U Hyaline Cast (Auto) (0-2) /lpf Urine Yeast (None Prsent) Coronavirus NL63 (PCR) (NotDetected) Diagnostic Findings CT head/brain wo con CLINICAL HISTORY: confusion. TECHNIQUE: Multiple axial CT images of the head were obtained without contrast. A dose lowering technique was utilized adhering to the principles of ALARA. CT DOSE: 2667 COMPARISON: None FINDINGS: No intracranial hemorrhage seen. No mass effect, midline shift, or hydrocephalus. No skull fracture seen. Visualized paranasal sinuses and mastoid air cells are clear. IMPRESSION: No acute findings. XR chest 1V portable CLINICAL HISTORY: Sepsis TECHNIQUE: Single frontal radiograph of the chest was obtained. Comparison: Comparison is made to chest radiograph 11/10/2022 FINDINGS: No lines and tubes are seen. The aorta is tortuous. The remainder of the cardiomediastinal silhouette is unremarkable. The lungs are clear. No evidence of pleural effusion or pneumothorax. IMPRESSION: No acute abnormalities and in particular no radiographic evidence of pneumonia. CT abd pelvis wo con CLINICAL HISTORY: AMS, vomiting TECHNIQUE: Helical axial images of the abdomen and pelvis were obtained. Automated dose lowering techniques and/or adjustment according to patient size were utilized for this exam. This exam was performed without intravenous contrast. CT DOSE: 2667.19 mGy.cm COMPARISON: Comparison is made to CT abdomen pelvis 11/09/2023 FINDINGS: Lower chest: No acute abnormality. Liver: Hepatic steatosis is noted. Gallbladder and biliary tree: Cholelithiasis is seen without evidence of cholecystitis. No intra- or extrahepatic biliary ductal dilation. Pancreas: Peripancreatic fat stranding is seen. Spleen: Patient is status post splenectomy. Adrenals: Unremarkable. Kidneys and ureters: Nonobstructive nephrolithiasis is seen. Hepatic cysts are seen with additional subcentimeter hypodensities which are too small to characterize Bladder: Unremarkable. Reproductive organs: Unremarkable. Bowel: Surgical changes of colocolonic anastomosis are seen in the colon. Diverticulosis is seen without diverticulitis. Hiatal hernia is seen. Lymph nodes Retroperitoneal: Unremarkable. Pelvic: Unremarkable. Mesenteric: Unremarkable. Peritoneum: Fat stranding is seen. Vessels: Atherosclerotic calcifications are seen. Abdominal wall: Supra helical hernia contains a loop of nondilated bowel. Bones: Degenerative changes in the visualized spine. IMPRESSION: 1. Peripancreatic fat stranding is seen compatible with acute pancreatitis. No evidence of acute peripancreatic fluid collection. 2. Nonobstructive stones are seen in the kidneys. 3. Hepatic steatosis. 4. Diverticulosis without diverticulitis. Postsurgical changes of low anterior resection with colocolonic anastomosis. 5. Cholelithiasis without cholecystitis. 6. Additional findings as above. Medications Administered ER Medications Given: Normal saline 1L bolus Normal saline 1L bolus Ceftriaxone 2000mg IV Insulin 10 units IV bolus and 10 units/hr drip ECG Rate (beats per minute): 109 Rhythm: sinus tachycardia Findings: + 1st degree AV block and + left axis deviation Comparison ECG Date: from (November 10, 2022) Change: the following changes noted (inferior infarct now present) Code Status & VTE Plan Code Status Full VTE Prophylaxis Plan VTE Prophylaxis will be ordered: Yes Critical Care Time Critical Care Time: Yes Total Critical Care Time: 40 PG Care Time/CCT Total # of Minutes Spent Total Time Spent with Patient: Total time spent is greater than 50% in coordination of care (as documented) at patient's floor/unit and/or counseling patient: Critical Care Time: Yes Total Critical Care Time: 40 Coding Level of Care Code 15767 INT INP/OBS CARE 3/75MIN Diagnoses Drug-induced acute pancreatitis, unspecified complication status K85.30 Pancreatitis type: drug induced Acute pancreatitis complication: unspecified Diabetic ketoacidosis without coma associated with type 2 diabetes mellitus E11.10 Diabetes mellitus type: type 2 Diabetes mellitus complication detail: without coma Sepsis with acute renal failure without septic shock, due to unspecified organism, unspecified acute renal failure type A41.9; R65.20; N17.9 Sepsis type: sepsis due to unspecified organism Sepsis acute organ dysfunction status: with acute organ dysfunction Severe sepsis acute organ dysfunction type: acute renal failure Acute renal failure type: unspecified Severe sepsis shock status: without septic shock PHIL (acute kidney injury) N17.9 Type 2 diabetes mellitus with proteinuria E11.29; R80.9 Obstructive sleep apnea of adult G47.33 Hypertension I10 H/O splenectomy Z90.81 Additional Codes Critical Care Time - Critical Care Time: Yes ([id number]) (1) Acute pancreatitis Pancreatitis type: drug induced Acute pancreatitis complication: unspecified Qualified Code(s): K85.30 - Drug induced acute pancreatitis without necrosis or infection (2) Diabetic ketoacidosis Diabetes mellitus type: type 2 Diabetes mellitus complication detail: without coma Qualified Code(s): E11.10 - Type 2 diabetes mellitus with ketoacidosis without coma (3) Sepsis Sepsis type: sepsis due to unspecified organism Sepsis acute organ dysfunction status: with acute organ dysfunction Severe sepsis acute organ dysfunction type: acute renal failure Acute renal failure type: unspecified Severe sepsis shock status: without septic shock Qualified Code(s): A41.9 - Sepsis, unspecified organism; R65.20 - Severe sepsis without septic shock; N17.9 - Acute kidney failure, unspecified
[2024-06-05] MEDS: NovoLIN-R BOLUS FROM BAG IV ONE (16:34)
[2024-06-05] MEDS: DKA GOAL RANGE 150-250 mg/dl ONE (16:35)
[2024-06-05] MEDS: STAT IV Infusion **Titration per Protocol STA (16:35)
[2024-06-05 16:46] LABS: Phosphorus 6.6 mg/dl (2.5-4.9)
--- NOTE | 2024-06-05 17:09 | Electrocardiogram Report ---
Test Reason : Blood Pressure : */* mmHG Vent. Rate : 109 BPM Atrial Rate : 109 BPM P-R Int : 210 ms QRS Dur : 86 ms QT Int : 324 ms P-R-T Axes : 52 -66 67 degrees QTcB Int : 436 ms Sinus tachycardia with 1st degree A-V block Left axis deviation Inferior infarct , age undetermined Abnormal ECG When compared with ECG of 10-Nov-2022 13:32, Inferior infarct is now Present Confirmed by Fly Kang ([id number]) on 06/05/2024 5:08:59 PM Referred By: REFERRED SELF Confirmed By: Fly Kang
[2024-06-05 17:35] LABS: Estimated Average Glucose 395 mg/dl; Hemoglobin A1C 15.4 % (4.5-5.6)
--- NOTE | 2024-06-05 17:35 | Emergency Department Note ---
Impression & Plan DKA (diabetic ketoacidosis), Pancreatitis, Acute UTI (urinary tract infection), Coronavirus infection, Acute renal failure, Acute dehydration ED Provider Note NAME: EVELYN ALMEIDA AGE: 68 SEX: Male INFORMANT: Patient and . EMS. ED PROVIDER(S): Son Recio MD CHIEF COMPLAINT: Illness PLAN: Disposition: Admitted Outpatient prescription management: none Referral: None MEDICAL DECISION MAKING: Patient presented because of illness. Workup was initiated. He was found to be significantly hyperglycemic and had pseudohyponatremia. He was also in acute renal failure. Patient was hydrated. He did receive over 2 L. The patient had a BioFire test that revealed the presence of non-COVID coronavirus. Urinalysis did raise some concerns for infection. Patient was started on IV Rocephin and also on DKA insulin protocol. Did discuss this with the ED pharmacist. Patient was reassessed and was doing somewhat better. ABG showed mild acidosis. Patient did have a lactic acidosis. No hypotension. CT imaging was performed as well as chest x-ray. Patient was found to have acute pancreatitis on CT and did have an elevated amylase and lipase. Consultation was made with Dr. Gerhard Orozco of the [facility] service. Case discussed and diagnostics were reviewed. Patient was evaluated in the ER for further management. Care/management discussed with: ED pharmacist, nurse outreach case manager, hospitalist Level of care consideration(s): After review of the information above and other included data, I feel the patient requires escalation of care to admission Triage Nursing notes: reviewed and agree them. Vital Signs: reviewed and remarkable for tachycardia Additional History obtained from: Patient's regarding his illness at home. Chronic Medical/Social Conditions affecting care: Diabetes Prior/ Outside/ External records reviewed: none Differential Diagnosis: Infection, dehydration, metabolic abnormality, hypo/hyperglycemia, electrolyte disturbance, anemia, hypoxia, cardiac sources, intracerebral event, toxicologic, neurologic, as well as other pathologies. Diagnostics, independently interpreted by me: ECG: Twelve-lead ECG reveals a sinus tachycardia 109 bpm. First-degree AV block. Left axis deviation. No ST elevation. Cardiac Monitoring: Cardiac monitoring ordered by me: The patient was placed on continuous cardiac monitoring and observed. It revealed a sinus tachycardia at 105 beats per minute without ectopy or evidence of dysrhythmia. Medical decision rules: none Imaging studies: Chest x-ray. Findings: A chest x-ray was performed and revealed no pneumothorax, effusion, infiltrate, pulmonary edema, free air under the diaphragm, or wide mediastinum. Impression: No acute disease. CT scan of the abdomen pelvis does reveal presence of pancreatitis. I refer you to the EMR for further details. HPI: 68 year old Male arrives for evaluation of illness. This started earlier this week and is getting worse per the spouse. He has had some flulike symptoms and also some vomiting. He seemed to be more confused today and had hyperglycemia. He has not taken his medications this week and has had decreased p.o. intake. The patient also notes the following associated symptoms, feeling thirsty, generally weak, and dizzy. Patient also notes some abdominal discomfort with the vomiting episodes. The patient has found no relieving factors. Current pain is rated as 0/10. Pt denies LOC, headache, fevers, chills, diaphoresis, neck pain, chest pain, breathing difficulties, back pain, diarrhea, melena, hematochezia, urinary symptoms, rash, or other complaints. PAST MEDICAL HISTORY: See Below, diabetes PAST SURGICAL HISTORY: See Below, SOCIAL HISTORY: See Below, HOME MEDICATIONS: See Below ALLERGIES: See Below VITALS: See Below PHYSICAL EXAMINATION: GENERAL: Awake, alert, mildly ill appearing, no distress HEAD: Normocephalic, atraumatic. No edema. EYES: Normal conjunctiva. Sclera non-icteric. NOSE: Mild congestion. OROPHARYNX: Lips, tongue, and mucosa are dry. No erythema or exudate. NECK: Supple. No nuchal rigidity. FROM. No adenopathy. RESPIRATORY: CTA bilaterally. No wheezes rales or rhonchi. CARDIAC: Borderline tachycardic rate, normal rhythm. ABDOMEN: Soft, non distended. Minimal epigastric tenderness to palpation. No rebound or guarding. NEURO: Mildly altered sensorium. Answering basic questions appropriately. is present and helps. Patient moving arms and legs appropriately. MUSCULOSKELETAL:1+ lower extremity edema. Calves equal size bilaterally and nontender. SKIN: No rash or jaundice noted. PROCEDURES: none CRITICAL CARE: I have personally spent 45 minutes of critical care time in the direct management of this patient. This includes bedside care, interpretation of diagnostic studies, and testing, discussion with consultants, patient, and family members, and other required patient management activities. These minutes are in excess of all separately billable procedures. OBSERVATION NOTE: none Past Med/Surg History Problem List (Updated 06/05/24 @ 17:20 by Gerhard Orozco MD) Acute pancreatitis Diabetic ketoacidosis PHIL (acute kidney injury) Sepsis Lower respiratory infection (e.g., bronchitis, pneumonia, pneumonitis, pulmonitis) Hypertension Class 3 severe obesity with serious comorbidity and body mass index (BMI) of 40.0 to 44.9 in adult Petechiae or ecchymoses Type 2 diabetes mellitus with proteinuria Poor compliance Ventral hernia Nephrolithiasis Erectile dysfunction Microscopic hematuria Left knee DJD Proteinuria (Chronic) Hypercholesterolemia (Chronic) Obstructive sleep apnea of adult (Chronic) H/O splenectomy (Chronic) HTN (hypertension) (Chronic) Peptic ulcer disease (Chronic) Medical History (Updated 06/05/24 @ 17:20 by Gerhard Orozco MD) History of rectal cancer Changing skin lesion Snoring Hemorrhoid Morbid obesity Encounter for pre-operative examination History of colon cancer 1996 - treated surgically Stomach ulcer Hx Sleep apnea CPAP (occasional use) Hyperlipidemia No meds Surgical History (Updated 05/05/24 @ 10:36 by Jose David Davenport DO) Status post total left knee replacement Status post right knee replacement History of appendectomy History of umbilical hernia repair History of rectal polypectomy History of arthroscopy of left shoulder History of arthroscopy of left knee History of repair of rotator cuff Left History of total knee replacement Right History of tonsillectomy History of appendectomy H/O splenectomy x2 s/p accident History of colonoscopy Colonoscopy (06/06/22): [facility] at [facility] History of esophagogastroduodenoscopy (EGD) History of bowel resection 1996 Family History Brother Family history of diabetes mellitus Mother Family hx of colon cancer Father Prostate cancer Uncle Prostate cancer Social History (Updated 05/30/24 @ 11:19 by GERRI Garcia) Smoking Status: Unknown if ever smoked Tobacco Type: Smokeless Tobacco (Dip or Chew) Second Hand Exposure: Yes; Do You Dip or Chew Tobacco: Yes (1 can every 2-3 days, advised none DOS); Hx Alcohol Use: Yes Alcohol type: beer Alcohol Intake Frequency: Monthly or Less Alcohol Intake Frequency Comment: 6-8 beers maybe 4-5 times a year Hx Substance Use: No Preferred Language: Mongolian Communication Ability: Effective Hearing Ability: Normal Business Process Modeler Required: No Beliefs That Will Affect Care: None marital status: Current Living Situation: Spouse current occupational status: retired Feels Safe at Home: Yes Childhood Exposure to Second-Hand Smoke: Yes Diet: regular caffeine: No Dental Care, Regularly: Yes Physical Activity Frequency: Daily Seatbelt Use: always Sunscreen Use: Yes Assistive Devices: Walker Allergies Allergies Allergy/AdvReac Type Severity Reaction Status Date / Time Aminoglycosides Allergy Severe Localized Verified 06/05/24 15:36 swelling + rash bacitracin Allergy Severe Localized Verified 06/05/24 15:36 swelling + rash codeine Allergy Severe Flushing, Verified 06/05/24 15:36 hot flashes neomycin Allergy Severe Localized Verified 06/05/24 15:36 swelling + rash polymyxin B Allergy Severe Localized Verified 06/05/24 15:36 swelling + rash cat dander Allergy Intermediate Eye Verified 06/05/24 15:36 swelling, sneezing Home Meds Home Medications Medication Instructions Recorded Confirmed blood sugar diagnostic (MyHeritageTouch #10 ea 02/11/19 05/30/24 Ultra Blue Test Strip) fexofenadine 180 mg tablet 180 mg PO HS 02/11/19 06/05/24 lancets 33 gauge (OneTouch Delica #100 ea 02/11/19 05/30/24 Lancets) acetaminophen 500 mg tablet 1,000 mg PO TID PRN Pain 11/10/22 06/05/24 (Tylenol Extra Strength) amoxicillin 500 mg capsule 2,000 mg PO DIRECTED PRN PRIOR 11/10/22 06/05/24 TO DENTAL PROCEDURES fkkucutnhrmz-[id number] acid 200 1 tab PO DAILY 10/17/23 06/05/24 mcg-lutein 137.5 mcg chewable tablet (Adult Multivitamin (w-lutein)) dulaglutide 3 mg/0.5 mL 3 mg subcut WK 12/25/23 06/05/24 subcutaneous pen [facility] ([facility]) aspirin 81 mg tablet,delayed 81 mg PO DAILY 05/05/24 06/05/24 release (Siri Low Dose Aspirin) Previous Rx's Medication Instructions Recorded CPAP Supplies #1 ea 01/23/19 betamethasone dipropionate 0.05 % 1 applic topical BID PRN Rash #60 01/06/23 topical cream grams Clinton Hose #1 ea 11/20/22 diltiazem HCl 420 mg capsule,24 420 mg PO QPM #90 caps 08/14/23 hr,extended release irbesartan 300 mg tablet 300 mg PO DAILY #90 tabs 05/16/24 spironolactone 50 mg tablet 50 mg PO DAILY #90 tabs 05/16/24 Results & Data (ED) Vital Signs Vital Signs - 24 hr 06/05/24 14:12 06/05/24 14:14 06/05/24 14:48 Temperature Temperature Source Pulse Rate 113 H 110 H 108 H Pulse Rate [Finger] Pulse Rhythm [Finger] Pulse Strength [Finger] Respiratory Rate 18 16 Respiratory Effort / Characteristics Respiratory Depth Blood Pressure 147/106 H 115/85 Blood Pressure [Right Arm] Blood Pressure Mean 119 109 Blood Pressure Mean [Right Arm] Blood Pressure Position Lying Blood Pressure Position [Right Arm] Pulse Oximetry 98 97 Oxygen Delivery Method Nasal Cannula Room Air Oxygen Flow Rate 2 Sepsis Recent Fever Within 48 Hours No Sepsis New/Unexplained Change in Mental Status Yes Sepsis Action Taken by Nursing Physician Notified 06/05/24 15:33 06/05/24 17:10 Temperature 36.7 C Temperature Source Oral Pulse Rate Pulse Rate [Finger] 105 H Pulse Rhythm [Finger] Regular Pulse Strength [Finger] Normal Respiratory Rate 22 Respiratory Effort / Characteristics Non-Labored Spontaneous Respiratory Depth Normal Blood Pressure Blood Pressure [Right Arm] 159/119 H Blood Pressure Mean Blood Pressure Mean [Right Arm] 132 Blood Pressure Position Blood Pressure Position [Right Arm] Lying Pulse Oximetry 95 Oxygen Delivery Method Room Air Oxygen Flow Rate Sepsis Recent Fever Within 48 Hours Sepsis New/Unexplained Change in Mental Status Sepsis Action Taken by Nursing Laboratory Data 06/05/24 14:10 06/05/24 14:10 Lab Results 06/05/24 06/05/24 06/05/24 Range/Units 14:10 15:34 16:00 WBC 16.21 H (4.8-10.8) K/ul RBC 5.58 (4.70-6.10) M/uL Hgb 16.3 (14.0-18.0) g/dl POC Hgb 15.0 (14.0-18.0) g/dl Hct 47.5 (42.0-52.0) % POC Hct 44 (42-52) % MCV 85.1 (80.0-100.0) fL MCH 29.2 (25.0-34.0) pg MCHC 34.3 (32.0-36.0) g/dL RDW Std Deviation 37.8 (36.4-46.3) fL RDW Coeff of Jimmie 12.1 (11.5-14.5) % Plt Count 375 (130-400) K/uL MPV 12.5 H (9.4-12.4) fL Immature Gran % (Auto) 0.9 % Neut % (Auto) 80.8 % Lymph % (Auto) 7.1 % [place] % (Auto) 10.9 % Eos % (Auto) 0.1 % Baso % (Auto) 0.2 % Neut # (Auto) 13.12 H (1.40-6.50) K/uL Lymph # (Auto) 1.15 L (1.20-3.40) K/uL [place] # (Auto) 1.76 H (0.11-0.59) K/uL Eos # (Auto) 0.01 (0.00-0.50) K/uL Baso # (Auto) 0.03 (0.00-0.20) K/uL Immature Gran # (Auto) 0.14 (0.01-0.20) K/uL POC pH 7.24 L (7.35-7.45) POC pCO2 16 L (35-46) mmHg POC pO2 112 H (80-95) mmHg POC HCO3 7 L (19-24) jairon/L POC Total CO2 7 L* (24-31) mmol/L POC Base Excess -21.0 L (-9-1.8) jairon/L POC ABG O2 Sat 98.0 H (90-95) % POC Sodium 128 L (135-144) mmol/L Sodium 126 L (136-145) mmol/L POC Potassium 4.8 (3.3-5.0) mmol/L Potassium 5.6 H (3.5-5.1) mmol/L Chloride 88 L (98-107) mmol/L Carbon Dioxide 13 L (21-32) mmol/L Anion Gap 25 H (3-11) BUN 85 H (6-23) mg/dl Creatinine 2.30 H (0.6-1.4) mg/dl Est Cr Clr Drug Dosing 36.0 ml/min eGFR 29.80 BUN/Creatinine Ratio 37.0 H (10-20) Glucose 837 H* (70-99(Fasting)) mg/dl Lactate 3.1 H* (0.4-2.0) mmol/L Calcium 9.0 (8.6-10.3) mg/dl Phosphorus 6.6 H (2.5-4.9) mg/dl Magnesium 3.5 H (1.7-2.4) mg/dl Total Bilirubin 0.5 (0.2-1.0) mg/dl Direct Bilirubin 0.1 (0-0.2) mg/dl AST 15 (13-39) U/L ALT 16 (7-52) U/L Alkaline Phosphatase 75 (34-104) U/L Troponin I High Sens 18.5 (0-20) pg/ml Total Protein 7.3 (6.0-8.3) gm/dl Albumin 3.7 (3.4-5.0) gm/dl Amylase 168 H (25-115) U/L Lipase 938 H (11-82) U/L Procalcitonin 0.62 H (0-0.5) ng/ml Urine Color Yellow Urine Appearance Clear (Clear) Urine pH 5.0 (4.5-7.5) Ur Specific [place] 1.027 (1.000-1.030) Urine Protein 1+ H (Negative) Urine Glucose (UA) 3+ H (Negative) Urine Ketones 1+ H (Negative) Urine Blood 2+ H (Negative) Urine Nitrite Negative (Negative) Urine Bilirubin Negative (Negative) Urine Urobilinogen Negative (Negative) Ur Leukocyte Esterase 1+ H (Negative) Urine WBC (Auto) 21-50 H (0-5) /hpf Urine RBC (Auto) 6-10 H (0-2) /hpf U Hyaline Cast (Auto) 6-10 H (0-2) /lpf U Epithel Cells (Auto) 0-2 (0-2) /hpf Urine Bacteria (Auto) None Seen (None Seen) Urine Yeast Present A (None Prsent) Adenovirus (PCR) Not Detected (NotDetected) B. pertussis DNA (PCR) Not Detected (NotDetected) B.parapertussis DNA PCR Not Detected (NotDetected) C. pneumoniae DNA (PCR) Not Detected (NotDetected) Coronavirus OC43 (PCR) Not Detected (NotDetected) Coronavirus HKU1 (PCR) Not Detected (NotDetected) Coronavirus 229E (PCR) Not Detected (NotDetected) SARS-CoV-2 (PCR) Not Detected (NotDetected) Coronavirus NL63 (PCR) DETECTED A (NotDetected) Human Metapneumovir PCR Not Detected (NotDetected) Influenza Type A (PCR) Not Detected (NotDetected) Influenza Type B (PCR) Not Detected (NotDetected) M. pneumoniae (PCR) Not Detected (NotDetected) Parainfluenza 1 (PCR) Not Detected (NotDetected) Parainfluenza 2 (PCR) Not Detected (NotDetected) Parainfluenza 3 (PCR) Not Detected (NotDetected) Parainfluenza 4 (PCR) Not Detected (NotDetected) RSV (PCR) Not Detected (NotDetected) Entero/Rhino (PCR) Not Detected (NotDetected) Administered Medications Insulin Human Regular 250 (units/ Sodium Chloride) 250 mls @ 10 mls/hr IV .Q24H HAYDER; Protocol Stop: 07/05/24 15:44 Last Admin: 06/05/24 16:09 Dose: 10 units/hr, 10 mls/hr Documented By: DANIELA Co-signed By: VISH Discontinued Medications Sodium Chloride (Nss) 1,000 mls @ 999 mls/hr IV .Q1H1M HAYDER Stop: 06/05/24 15:30 Last Infusion: 06/05/24 16:35 Dose: Infused Documented By: Admin: 06/05/24 14:48 Dose: 999 mls/hr Documented By: QGV Sodium Chloride (Nss) 1,000 mls @ 999 mls/hr IV .Q1H1M ONE Stop: 06/05/24 15:56 Last Infusion: 06/05/24 16:35 Dose: Infused Documented By: Admin: 06/05/24 15:36 Dose: 999 mls/hr Documented By: JACKELYN Insulin Human Regular (Novolin-R Bolus From Bag) 10 units IV ONE ONE Stop: 06/05/24 16:01 Last Admin: 06/05/24 16:34 Dose: 10 units Documented By: DANIELA Co-signed By: VISH Miscellaneous (Stat Iv Infusion Titration Per Protocol) 1 each N/A NOW STA Stop: 06/05/24 15:44 Last Admin: 06/05/24 16:35 Dose: 1 each Documented By: DANIELA Melgozacellaneous (Dka Goal Range 150-250 Mg/Dl) 1 each N/A ONE ONE Stop: 06/05/24 15:44 Last Admin: 06/05/24 16:35 Dose: 1 each Documented By: DANIELA Imaging Data Radiologist's Impression: Abdomen/Pelvis CT 06/05/24 14:22 CT abd pelvis wo con CLINICAL HISTORY: AMS, vomiting TECHNIQUE: Helical axial images of the abdomen and pelvis were obtained. Automated dose lowering techniques and/or adjustment according to patient size were utilized for this exam. This exam was performed without intravenous contrast. CT DOSE: 2667.19 mGy.cm COMPARISON: Comparison is made to CT abdomen pelvis 11/09/2023 FINDINGS: Lower chest: No acute abnormality. Liver: Hepatic steatosis is noted. Gallbladder and biliary tree: Cholelithiasis is seen without evidence of cholecystitis. No intra- or extrahepatic biliary ductal dilation. Pancreas: Peripancreatic fat stranding is seen. Spleen: Patient is status post splenectomy. Adrenals: Unremarkable. Kidneys and ureters: Nonobstructive nephrolithiasis is seen. Hepatic cysts are seen with additional subcentimeter hypodensities which are too small to characterize Bladder: Unremarkable. Reproductive organs: Unremarkable. Bowel: Surgical changes of colocolonic anastomosis are seen in the colon. Diverticulosis is seen without diverticulitis. Hiatal hernia is seen. Lymph nodes Retroperitoneal: Unremarkable. Pelvic: Unremarkable. Mesenteric: Unremarkable. Peritoneum: Fat stranding is seen. Vessels: Atherosclerotic calcifications are seen. Abdominal wall: Supra helical hernia contains a loop of nondilated bowel. Bones: Degenerative changes in the visualized spine. IMPRESSION: 1. Peripancreatic fat stranding is seen compatible with acute pancreatitis. No evidence of acute peripancreatic fluid collection. 2. Nonobstructive stones are seen in the kidneys. 3. Hepatic steatosis. 4. Diverticulosis without diverticulitis. Postsurgical changes of low anterior resection with colocolonic anastomosis. 5. Cholelithiasis without cholecystitis. 6. Additional findings as above. ACT 112: Negative or not required by law. Electronically signed by: Tristian Gaines M.D. 06/05/2024 3:09 PM Chest X-Ray 06/05/24 14:22 XR chest 1V portable CLINICAL HISTORY: Sepsis TECHNIQUE: Single frontal radiograph of the chest was obtained. Comparison: Comparison is made to chest radiograph 11/10/2022 FINDINGS: No lines and tubes are seen. The aorta is tortuous. The remainder of the cardiomediastinal silhouette is unremarkable. The lungs are clear. No evidence of pleural effusion or pneumothorax. IMPRESSION: No acute abnormalities and in particular no radiographic evidence of pneumonia. ACT 112: Negative or not required by law. Electronically signed by: Tristian Gaines M.D. 06/05/2024 3:[address] 06/05/24 14:22 CT head/brain wo con CLINICAL HISTORY: confusion. TECHNIQUE: Multiple axial CT images of the head were obtained without contrast. A dose lowering technique was utilized adhering to the principles of ALARA. CT DOSE: 2667 COMPARISON: None FINDINGS: No intracranial hemorrhage seen. No mass effect, midline shift, or hydrocephalus. No skull fracture seen. Visualized paranasal sinuses and mastoid air cells are clear. IMPRESSION: No acute findings. ACT 112: Negative or not required by law. The above report was generated using voice recognition software. It may contain grammatical, syntax or spelling errors. Electronically signed by: Kevin Valenzuela M.D. 06/05/2024 2:53 PM Discharge Plan Visit Data Chief Complaint: Illness Stated Complaint: ILL ED Provider: Son Recio Discharge Problem: DKA (diabetic ketoacidosis), Pancreatitis, Acute UTI (urinary tract infection), Coronavirus infection, Acute renal failure, Acute dehydration Patient Disposition: Admitted As Inpatient Discharge Instructions Interventions: ED Discharge Assessment Last Done: 06/05/24 17:23 Forms Stand Alone Forms: My [facility] Catherine Banyan Prescriptions Prescriptions: No Action betamethasone dipropionate 0.05 % cream 1 applic topical BID PRN (Reason: Rash) Qty: 60 0RF diltiazem HCl 420 mg capsule,extended release 24hr 420 mg PO QPM Qty: 90 3RF irbesartan 300 mg tablet 300 mg PO DAILY Qty: 90 3RF spironolactone 50 mg tablet 50 mg PO DAILY Qty: 90 2RF (DME) CPAP Supplies Misc See Dose Instructions .ROUTE .MEDSUPPLY Qty: 1 0RF Dose Instruction: As directed Rx Instructions: nasal mask fexofenadine 180 mg tablet 180 mg PO HS [id number] acid-lutein [Adult Multivitamin (w-lutein)] 200-137.5 mcg tablet,chewable 1 tab PO DAILY (DME) lancets [OneTouch Delica Lancets] 33 gauge misc See Dose Instructions .ROUTE .MEDSUPPLY Qty: 100 Rx Instructions: As directed - twice daily & as needed (DME) OneTouch Ultra Blue Test Strip strip See Dose Instructions .ROUTE .MEDSUPPLY Qty: 10 Rx Instructions: As directed - test twice daily and as needed (DME) Clinton Piña Misc See Rx Instructions .MEDSUPPLY Qty: 1 0RF Rx Instructions: As directed aspirin [Siri Low Dose Aspirin] 81 mg tablet,delayed release (DR/EC) 81 mg PO DAILY Rx Instructions: Take to prevent blood clots. Trulicity 3 mg/0.5 mL pen injector 3 mg subcut WK Rx Instructions: Tuesdays amoxicillin 500 mg capsule 2,000 mg PO DIRECTED PRN (Reason: PRIOR TO DENTAL PROCEDURES) Rx Instructions: Take 4 capsules prior to dental appointment acetaminophen [Tylenol Extra Strength] 500 mg tablet 1,000 mg PO TID PRN (Reason: Pain) Rx Instructions: Take 3 times per day to lessen pain. Referrals Referrals: Jose David Davenport, [Primary Care Provider] -
[2024-06-05 17:57] LABS: BUN Creatinine Ratio 39.7 (10-20); Calcium 8.3 mg/dl (8.6-10.3); Creatinine Clr Calc Pharmacy 38.7 ml/min; Potassium 4.7 mmol/L (3.5-5.1)
[2024-06-05] MEDS: cefTRIAXone SODIUM 2,000 MG/50 ML BAG IV STA (18:11)
[2024-06-05] MEDS: SODIUM CHLORIDE 0.45 % 1,000 ML IV SCH (18:41)
[2024-06-05] MEDS: INSULIN ASPART PER UNIT CHARGE SC SCH (18:43)
[2024-06-05] MEDS ORDERED: PENDING D5 1/2NS+20mEq KCL IVF SCH (18:45)
[2024-06-05] MEDS ORDERED: PENDING 1/2NSS+20mEq KCL IVF SCH (18:45)
--- NOTE | 2024-06-05 19:52 | Critical Care Consultation ---
Date of Consultation June 05, 2024 Assessment & Plan (1) Acute pancreatitis: (2) Diabetic ketoacidosis: (3) PHIL (acute kidney injury): (4) Type 2 diabetes mellitus with proteinuria: (5) Poor compliance: (6) Viral upper respiratory infection: (7) Hypertriglyceridemia: Plan #Free fatty acid / Hypertriglyceridemic pancreatitis #Acute metabolic encephalopathy #PHIL on CKD, prerenal #Leukocytosis with neutrophil predominance #HAGMA 2/2 DKA, lactate, uremia #DKA #Viral URI Neurologic APAP PRN pain/fever. Avoid opiates Avoid sedating medications Routine neurologic checks per protocol Respiratory No acute concerns Supportive care for URI IS/Flutter as clinically feasible CPAP QHS if patient will comply, ensure he is not nauseous prior to placement Cardiovascular Reintroduce home antihypertensives, start with Diltiazem given his PHIL Continue IVF resuscitation Start high-dose statin, patient has declined in the past. Gastrointestinal/Nutrition Diet: Zero fat diet, advance as tolerated SUP: N/A Bowel regimen: Miralax PRN Recheck TG in AM. They are not >1000 but he has no other identifiable cause for pancreatitis Can consider Gemfibrozil or Fenofibrate if patient refuses statin again Endocrine A1c 15.4 today Consult childbirth educator Patient should be discharged on insulin therapy with how poorly controlled his disease is Continue insulin and dextrose infusions overnight to support anabolic state, would not transition to SQ yet Infectious Disease Recently Rx Augmentin and Azithromycin for possible LRI, imaging does not support this. Ceftriaxone started per primary team. May be able to watch this gentleman off antibiotics given we have no identifiable source of infection. Procalcitonin very mildly elevated but may be in setting of pancreatic inflammation. MRSA negative. BCx2 pending. UA shows WBC, no bacteria present. Renal/Electrolytes PHIL improving with IVF, continue for now No current indication for peterson catheter Maintain electrolytes at goal Hold Aldactone and ARB Heme/Onc No acute concerns MSK/Skin/Other No acute concerns PT/OT nurse educator L/T/D PIV x2 Ivon Maurice PA-C Critical Care Medicine History of Present Illness Reason for Consultation: Severe pancreatitis Requesting Physician: Pam Attending Physician: Gerhard Orozco MD History of Present Illness Mr. Juan Cooper is a 68YOM with a history of medical noncompliance, tobacco use disorder (chew), rectal cancer s/p excision, hypertension, hyperlipidemia, CHRISTOPHE not on CPAP, obesity, NIDDMII (uncontrolled), PUD who presented to [facility] ED on 06/05/2024 due to altered mentation, hallucinations, generalized weakness. Recently diagnosed with lower respiratory tract infection, started on Augmentin and azithromycin. On arrival to ED patient tachycardic and mildly hypertensive. Afebrile. Work-up revealed severe hyperglycemia with HAGMA indicative of DKA, significantly elevated lipase, PHIL, + coronavirus PCR. ABG showed incompletely compensated acidosis. Imaging did reveal signs of acute pancreatitis. He received 2L IVF, ceftriaxone, insulin infusion, and admitted to ICU for continuation of care given severe pancreatitis. Patient seen in ICU 103. He is AAOx3. No acute distress. No current complaints . Denies headache, nausea, vomiting, diarrhea, chest pain, shortness of breath, abdominal pain, numbness/paresthesias. Allergies Allergy/AdvReac Type Severity Reaction Status Date / Time Aminoglycosides Allergy Severe Localized Verified 06/05/24 15:36 swelling + rash bacitracin Allergy Severe Localized Verified 06/05/24 15:36 swelling + rash codeine Allergy Severe Flushing, Verified 06/05/24 15:36 hot flashes neomycin Allergy Severe Localized Verified 06/05/24 15:36 swelling + rash polymyxin B Allergy Severe Localized Verified 06/05/24 15:36 swelling + rash cat dander Allergy Intermediate Eye Verified 06/05/24 15:36 swelling, sneezing Home Medications Medication Instructions Recorded Confirmed Type CPAP Supplies #1 ea 01/23/19 05/30/24 Rx blood sugar diagnostic (StatusNetTouch #10 ea 02/11/19 05/30/24 History Ultra Blue Test Strip) fexofenadine 180 mg tablet 180 mg PO HS 02/11/19 06/05/24 History lancets 33 gauge (OneTouch Delica #100 ea 02/11/19 05/30/24 History Lancets) betamethasone dipropionate 0.05 % 1 applic topical BID PRN Rash #60 05/19/22 06/05/24 Rx topical cream grams acetaminophen 500 mg tablet 1,000 mg PO TID PRN Pain 11/10/22 06/05/24 History (Tylenol Extra Strength) amoxicillin 500 mg capsule 2,000 mg PO DIRECTED PRN PRIOR 11/10/22 06/05/24 History TO DENTAL PROCEDURES Clinton Piña #1 ea 11/20/22 05/30/24 Rx diltiazem HCl 420 mg capsule,24 420 mg PO QPM #90 caps 08/14/23 06/05/24 Rx hr,extended release wgtcxfxyaxvh-lefk-ehimp acid 200 1 tab PO DAILY 10/17/23 06/05/24 History mcg-lutein 137.5 mcg chewable tablet (Adult Multivitamin (w-lutein)) dulaglutide 3 mg/0.5 mL 3 mg subcut WK 12/25/23 06/05/24 History subcutaneous pen injector (Trulicity) aspirin 81 mg tablet,delayed 81 mg PO DAILY 05/05/24 06/05/24 History release (Siri Low Dose Aspirin) irbesartan 300 mg tablet 300 mg PO DAILY #90 tabs 05/16/24 06/05/24 Rx spironolactone 50 mg tablet 50 mg PO DAILY #90 tabs 05/16/24 06/05/24 Rx Patient History Medical History (Updated 06/05/24 @ 23:55 by Ivon Maurice PA-C) History of rectal cancer Changing skin lesion Snoring Hemorrhoid Morbid obesity Encounter for pre-operative examination History of colon cancer 1996 - treated surgically Stomach ulcer Hx Sleep apnea CPAP (occasional use) Hyperlipidemia No meds Surgical History (Updated 05/05/24 @ 10:36 by Jose David Davenport DO) Status post total left knee replacement Status post right knee replacement History of appendectomy History of umbilical hernia repair History of rectal polypectomy History of arthroscopy of left shoulder History of arthroscopy of left knee History of repair of rotator cuff Left History of total knee replacement Right History of tonsillectomy History of appendectomy H/O splenectomy x2 s/p accident History of colonoscopy Colonoscopy (06/06/22): MAC at [facility] History of esophagogastroduodenoscopy (EGD) History of bowel resection 1996 Family History Brother Family history of diabetes mellitus Mother Family hx of colon cancer Father Prostate cancer Uncle Prostate cancer Social History (Updated 05/30/24 @ 11:19 by GERRI Garcia) Smoking Status: Never smoker Tobacco Type: Smokeless Tobacco (Dip or Chew) Second Hand Exposure: Yes; Do You Dip or Chew Tobacco: Yes (1 can every 2-3 days, advised none DOS); Hx Alcohol Use: Yes Alcohol type: beer Alcohol Intake Frequency: Monthly or Less Alcohol Intake Frequency Comment: 6-8 beers maybe 4-5 times a year Hx Substance Use: No Preferred Language: Maltese Communication Ability: Effective Hearing Ability: Normal Bonded Structures Repairer Required: No Beliefs That Will Affect Care: None marital status: Current Living Situation: Alone current occupational status: retired Other Information That Helps Us Care for You: No Feels Safe at Home: Yes Safety Concerns: Feels Safe At This Time Childhood Exposure to Second-Hand Smoke: Yes Diet: regular caffeine: No Dental Care, Regularly: Yes Physical Activity Frequency: Daily Seatbelt Use: always Sunscreen Use: Yes Assistive Devices: Glasses Review of Systems Review of Systems: All systems reviewed & are unremarkable except as noted in HPI & below Physical Exam Constitutional: WD/WN, vitals as above Eyes: PERRL, conjunctivae normal, anicteric sclerae ENMT: Dry MM. poor dentition Neck: trachea midline, no thyromegaly Respiratory: normal respiratory effort, lungs clear to auscultation Cardiovascular: RRR, no murmur, no edema Gastrointestinal (Abdomen): normal bowel sounds, soft, nontender, no hepatosplenomegaly Musculoskeletal: no cyanosis or clubbing, extremities motor strength 5/5 Skin: no rashes, warm and dry Neurologic: AAOx3, no focal deficits Psychiatric: A+Ox3, euthymic affect Genitourinary: Deferred Results & Data Results & Data Vital Signs (Past 12 Hours) Vital Signs Temp Pulse Pulse Resp BP BP Pulse Ox 06/05/24 18:46 36.6 C 111 H 16 144/89 H 96 06/05/24 17:10 36.7 C 06/05/24 15:33 105 H 22 159/119 H 95 06/05/24 14:48 108 H 16 115/85 97 06/05/24 14:14 110 H 18 147/106 H 98 06/05/24 14:12 113 H O2 Del Method O2 Flow Rate 06/05/24 18:46 Room Air 06/05/24 17:10 06/05/24 15:33 Room Air 06/05/24 14:48 Room Air 06/05/24 14:14 Nasal Cannula 2 06/05/24 14:12 Laboratory Results Reviewed. Diagnostic Findings Reviewed. Medications Administered See MAR. Coding Level of Care Code 57872 IN/OBS CONSULT LVL 3,45M Diagnoses Drug-induced acute pancreatitis, unspecified complication status K85.30 Pancreatitis type: drug induced Acute pancreatitis complication: unspecified Diabetic ketoacidosis without coma associated with type 2 diabetes mellitus E11.10 Diabetes mellitus type: type 2 Diabetes mellitus complication detail: without coma PHIL (acute kidney injury) N17.9 Type 2 diabetes mellitus with proteinuria E11.29; R80.9 Poor compliance Z91.199 Viral upper respiratory infection J06.9 Hypertriglyceridemia E78.1 Time Spent (min) 48 (1) Acute pancreatitis Pancreatitis type: drug induced Acute pancreatitis complication: unspecified Qualified Code(s): K85.30 - Drug induced acute pancreatitis without necrosis or infection (2) Diabetic ketoacidosis Diabetes mellitus type: type 2 Diabetes mellitus complication detail: without coma Qualified Code(s): E11.10 - Type 2 diabetes mellitus with ketoacidosis without coma
[2024-06-05 20:25] LABS: BUN Creatinine Ratio 37.7 (10-20); Calcium 7.7 mg/dl (8.6-10.3); Creatinine Clr Calc Pharmacy 39.6 ml/min; Magnesium 3.2 mg/dl (1.7-2.4); Potassium 4.1 mmol/L (3.5-5.1)
[2024-06-05] MEDS: SODIUM CHLOR 0.45% + 20MEQ KCL 20 MEQ/1,000 ML BAG IV SCH (21:21)
[2024-06-05] MEDS: ICU Protocol for HYPERglycemia SCH (21:21)
[2024-06-05] MEDS: HEPARIN SOD 5,000 UNIT/0.5 ML VIAL SQ SCH (23:04)
[2024-06-06] MEDS ORDERED: Nursing to Pharmacy Communication SCH ×2 (00:15→04:30)
[2024-06-06] MEDS: D5W AND 1/2NSS + 20MEQ KCL 20 MEQ/1,000 ML BAG IV SCH (00:23)
[2024-06-06 00:29] LABS: BUN Creatinine Ratio 39.8 (10-20); Calcium 8.8 mg/dl (8.6-10.3); Creatinine Clr Calc Pharmacy 42.9 ml/min; Magnesium 3.2 mg/dl (1.7-2.4); Phosphorus 3.4 mg/dl (2.5-4.9)
[2024-06-06] MEDS: POTASSIUM CHLORIDE 10 MEQ TABCR PO STA (00:56)
[2024-06-06 03:34] LABS: Basophils # (auto) 0.03 K/uL (0.00-0.20); Basophils % (auto) 0.2 %; Eosinophils # (auto) 0.07 K/uL (0.00-0.50); Eosinophils % (auto) 0.4 %; Hematocrit (blood only) 42.4 % (42.0-52.0); Hemoglobin 14.7 g/dl (14.0-18.0); Immature Granulocytes # (auto) 0.13 K/uL (0.01-0.20); Immature Granulocytes % (auto) 0.8 %; Lymphocytes # (auto) 1.56 K/uL (1.20-3.40); Lymphocytes % (auto) 9.6 %; Mean Corpuscular Hgb Conc 34.7 g/dL (32.0-36.0); Mean Corpuscular Volume 83.6 fL (80.0-100.0); Mean Platelet Volume 12.1 fL (9.4-12.4); Monocytes # (auto) 2.06 K/uL (0.11-0.59); Monocytes % (auto) 12.7 %; Neutrophils # (auto) 12.32 K/uL (1.40-6.50); Neutrophils % (auto) 76.3 %; Platelet Count 353 K/uL (130-400); RDW Coefficient of Variation 12.1 % (11.5-14.5); RDW Standard Deviation 36.3 fL (36.4-46.3); Red Blood Count 5.07 M/uL (4.70-6.10); White Blood Count 16.17 K/ul (4.8-10.8)
[2024-06-06 03:57] LABS: BUN Creatinine Ratio 39.3 (10-20); Calcium 7.6 mg/dl (8.6-10.3); Creatinine Clr Calc Pharmacy 44.8 ml/min; Magnesium 2.8 mg/dl (1.7-2.4); Phosphorus 3.3 mg/dl (2.5-4.9); Potassium 5.1 mmol/L (3.5-5.1)
[2024-06-06] MEDS: LACTATED RINGER'S 1,000 ML IV SCH (04:27)
[2024-06-06] MEDS: SODIUM CHLORIDE 0.9% 1,000 ML IV SCH (04:27)
[2024-06-06 05:31] LABS: BUN Creatinine Ratio 40.7 (10-20); Calcium 7.6 mg/dl (8.6-10.3); Creatinine Clr Calc Pharmacy 47.6 ml/min; Potassium 3.9 mmol/L (3.5-5.1)
[2024-06-06] MEDS: POTASSIUM CHLORIDE 20 MEQ/15 ML UDC PO STA (05:51)
--- NOTE | 2024-06-06 06:56 | Critical Care Progress Note ---
Date of Service June 06, 2024 Assessment & Plan (1) Acute pancreatitis: (2) Diabetic ketoacidosis: (3) PHIL (acute kidney injury): (4) Type 2 diabetes mellitus with proteinuria: (5) Poor compliance: (6) Viral upper respiratory infection: (7) Hypertriglyceridemia: Plan #Free fatty acid / Hypertriglyceridemic pancreatitis #Acute metabolic encephalopathy #PHIL on CKD, prerenal #Leukocytosis with neutrophil predominance #HAGMA 2/2 DKA, lactate, uremia #DKA #Viral URI Neurologic APAP PRN pain/fever. Avoid opiates Respiratory No acute concerns: satting mid-upper 90s on room air Supportive care for URI IS/Flutter as clinically feasible CPAP qHS if patient will comply, ensure he is not nauseous prior to placement Cardiovascular Reintroduce home antihypertensives, start with Diltiazem given his PHIL, received 120mg this AM 06/06/24 No further IVF at this time Start high-dose statin, patient has declined in the past: received atorvastatin 80mg Gastrointestinal/Nutrition Diet: Zero fat diet, advance as tolerated SUP: N/A Bowel regimen: Miralax PRN - had BM afternoon 06/06/24 Hypertriglyceridemia -Can consider Gemfibrozil or Fenofibrate, receiving atorvastatin 80mg qAM now Choledocholithiasis given ultrasound findings -May need to consider MRCP to further evaluate pancreatic duct versus common bile duct pathology, deferring at this time given acute kidney injury Endocrine Poorly controlled type 2 diabetes: glucose 175 currently; anion gap has closed Consult para educator -Off insulin infusion Infectious Disease No role procalcitonin and acute kidney injury: Discontinue all anti-infectives Renal/Electrolytes PHIL improvin.91 -> 1.72 Hyponatremia resolved: 134 High gap metabolic acidosis improving: d/c'd IVF Hold Aldactone and ARB until kidney function improves Lytes mostly improved, giving calcium citrate today and tomorrow for low calcium; mag downtrending Heme/Onc No acute concerns MSK/Skin/Other No acute concerns PT/OT nurses educator Stable for downgrade out of ICU Admission and Anticipated Discharge Date Admission Date: June 05, 2024 Subjective Patient was seen and evaluated at bedside this afternoon, not appearing in acute distress, accompanied by . States he is not feeling great, but better than previously. Denies any particular pain or discomfort at time of encounter. Not receiving anything IV at this time, currently having urge to urinate and have BM, will try after encounter. Understands that he is essentially ready for downgrade to tele floor. Physical Exam Physical Exam: Constitutional: A&Ox2-3, reported name and but did not recall current hospital name. On room air satting mid-upper 90s. Head: NC/AT ENT: EOM intact, PERRL b/l, moist mucus membranes Neuro: no facial droop, speech intact, moving all extremities, follows instructions to wiggle fingers and toes successfully Respiratory: good air mvmt b/l, mildly coarse breath sounds in b/l bases, otherwise clear and no wheezes Cardiac: RRR, no m/r/g on auscultation, skin warm and dry - pulses: 2+ carotid b/l, 2+ radial b/l, 2+ post tib b/l GI/abd: hyperactive bowel sounds, abdomen soft, non tympanitic, mild tenderness to palpation of epigastric and LUQ, old horizontal surg scar across upper abdomen, palpable central abdominal hernia with 1-2cm opening, nontender to palpation; no ecchymosis seen MSK: 5/5 strength in all extremities, 1+ pitting edema in b/l distal UE, 3+ pitting edema in b/l LE up to shins, calves nontender to palpation, no erythema observed, negative Gallo's b/l : no peterson Skin: dry, intact Results & Data Results & Data Vital Signs (Past 12 Hours) Vital Signs Temp Pulse Pulse Resp BP BP Pulse Ox 06/06/24 05:00 95 H 12 96 06/06/24 05:00 144/88 H 06/06/24 05:00 144/88 H 06/06/24 05:00 144/88 H 06/06/24 04:24 97 H 12 95 06/06/24 04:00 129/88 06/06/24 04:00 36.8 C 06/06/24 03:45 96 H 14 95 06/06/24 03:03 99 H 12 94 06/06/24 03:00 133/97 06/06/24 03:00 133/97 06/06/24 03:00 133/97 06/06/24 02:57 100 H 15 94 06/06/24 02:15 99 H 16 94 06/06/24 02:00 145/92 H 06/06/24 01:48 99 H 12 94 06/06/24 01:23 36.7 C 06/06/24 00:00 110 H 13 96 06/06/24 00:00 122/92 06/06/24 00:00 112 H 06/05/24 23:30 108 H 15 96 06/05/24 23:03 110 H 15 95 06/05/24 23:00 117/97 06/05/24 23:00 117/97 06/05/24 22:48 107 H 13 94 06/05/24 22:15 107 H 15 95 06/05/24 21:03 105 H 14 96 06/05/24 21:02 133/92 06/05/24 21:02 133/92 06/05/24 21:02 133/92 06/05/24 21:02 133/92 06/05/24 20:57 107 H 14 94 06/05/24 20:50 36.9 C 06/05/24 20:03 107 H 12 96 06/05/24 20:00 133/90 06/05/24 20:00 133/90 06/05/24 20:00 133/90 06/05/24 19:51 108 H 13 96 06/05/24 19:15 106 H 18 149/101 H 95 O2 Del Method FiO2 06/06/24 05:00 06/06/24 05:00 06/06/24 05:00 06/06/24 05:00 06/06/24 04:24 06/06/24 04:00 06/06/24 04:00 06/06/24 03:45 06/06/24 03:03 06/06/24 03:00 06/06/24 03:00 06/06/24 03:00 06/06/24 02:57 06/06/24 02:15 06/06/24 02:00 06/06/24 01:48 06/06/24 01:23 06/06/24 00:00 06/06/24 00:00 06/06/24 00:00 06/05/24 23:30 21 06/05/24 23:03 06/05/24 23:00 06/05/24 23:00 06/05/24 22:48 06/05/24 22:15 06/05/24 21:03 06/05/24 21:02 06/05/24 21:02 06/05/24 21:02 06/05/24 21:02 06/05/24 20:57 06/05/24 20:50 06/05/24 20:03 06/05/24 20:00 06/05/24 20:00 06/05/24 20:00 06/05/24 19:51 06/05/24 19:15 Room Air Resident Activity Tracking Resident Involvement: Resident Care Provided Care Provided: Adult Hospital Medicine (1) Acute pancreatitis Acute pancreatitis complication: unspecified Pancreatitis type: drug induced Qualified Code(s): K85.30 - Drug induced acute pancreatitis without necrosis or infection (2) Diabetic ketoacidosis Diabetes mellitus complication detail: without coma Diabetes mellitus type: type 2 Qualified Code(s): E11.10 - Type 2 diabetes mellitus with ketoacidosis without coma
--- NOTE | 2024-06-06 06:59 | Hospitalist Progress Note ---
Date of Service June 06, 2024 Assessment & Plan (1) Acute pancreatitis: (2) Diabetic ketoacidosis: (3) PHIL (acute kidney injury): (4) Type 2 diabetes mellitus with proteinuria: (5) Poor compliance: (6) Viral upper respiratory infection: (7) Hypertriglyceridemia: Plan #Acute pancreatitis: -Severe per Zeeshan's criteria at time of admission. -CT evidence of acute pancreatitis. Elevated lipase. -Elevated triglycerides of 345. -No abdominal pain. -Will hold GLP-1, should DC this medication at this time. -Given 2 L NSS bolus and admitted to the ICU. #Diabetic ketoacidosis: -Patient presented to the ED with a glucose of 535. -Started on IV insulin for DKA as well as have NSS with KCl. -Was admitted to the ICU and gap closed. -Switch to SQ insulin once anion gap closed -Continue with BMP in the a.m. #Sepsis: ?urinary/diarrhea source -Recent antibiotics with Augmentin/azithromycin for LRTI -Biofire PCR - coronavirus NL63 -Empiric ceftriaxone pending blood/cultures and stool PCR (noted history of splenectomy) #PHIL (acute kidney injury): -No obstructive cause on CT -Suspect pre-renal -Presented with a creatinine of 2.30, slowly improving. #Type 2 diabetes mellitus with proteinuria: -Hemoglobin A1c of 15.4, previously 8.2 in July 2023 -Will discontinue GLP-1 at this time due to acute pancreatitis. -Initially started on IV insulin for DKA, will transition to sliding scale insulin with Lantus coverage. -Glycemic pharmacy management consulted. -Will also consult diabetes education. -Will most likely need to change up diabetes treatment at discharge. #Obstructive sleep apnea of adult: -CPAP HS - although he notes not using his home machine for years #Hypertension: -Hold spironolactone, irbesartan until clinically stable. -Monitor on telemetry #H/O splenectomy VTE Prophylaxis - heparin 5000 units SQ q8h Diet -low-fat, type 2 diabetes Disposition -PCU/tele Supervising Physician Co-Signing Physician Notes Attending Physician Supervision Note: I independently interviewed and examined the patient and verified the cunningham history and physical, reviewed labs and image studies and agree with findings and care plan noted above. Pancreatitis resolved. DKA - resolved PHIL - improving. s/p iVF resuscitation. follow renal fx. DM - uncontrolled. A1c 15. Diabetes education. Will need to be on insulin. Subjective Patient was seen bedside this a.m. Patient states that he is doing better. Patient does ask along he has been admitted to the hospital. He thought he was admitted for a couple days now. Only complaints today of the room being cold and feeling fatigued. Patient also states that he is thirsty. No other issues or concerns at this time. Review of Systems Review of Systems: All systems reviewed & are unremarkable except as noted in Subjective Physical Exam Constitutional: WD/WN, vitals as above ENMT: Mouth: + dry oral mucous membranes Neck: trachea midline, no thyromegaly Respiratory: normal respiratory effort, lungs clear to auscultation Cardiovascular: RRR, no murmur, no edema Gastrointestinal (Abdomen): normal bowel sounds, soft, nontender, no hepatosplenomegaly Skin: no rashes, warm and dry Neurologic: moves all extremities, awake and + confused; no focal motor deficits Psychiatric: Orientation: oriented x 3 Results & Data Results & Data Vital Signs (Past 12 Hours) Vital Signs Temp Pulse Pulse Resp BP BP Pulse Ox 06/06/24 05:00 95 H 12 96 06/06/24 05:00 144/88 H 06/06/24 05:00 144/88 H 06/06/24 05:00 144/88 H 06/06/24 04:24 97 H 12 95 06/06/24 04:00 129/88 06/06/24 04:00 36.8 C 06/06/24 03:45 96 H 14 95 06/06/24 03:03 99 H 12 94 06/06/24 03:00 133/97 06/06/24 03:00 133/97 06/06/24 03:00 133/97 06/06/24 02:57 100 H 15 94 06/06/24 02:15 99 H 16 94 06/06/24 02:00 145/92 H 06/06/24 01:48 99 H 12 94 06/06/24 01:23 36.7 C 06/06/24 00:00 110 H 13 96 06/06/24 00:00 122/92 06/06/24 00:00 112 H 06/05/24 23:30 108 H 15 96 06/05/24 23:03 110 H 15 95 06/05/24 23:00 117/97 06/05/24 23:00 117/97 06/05/24 22:48 107 H 13 94 06/05/24 22:15 107 H 15 95 06/05/24 21:03 105 H 14 96 06/05/24 21:02 133/92 06/05/24 21:02 133/92 06/05/24 21:02 133/92 06/05/24 21:02 133/92 06/05/24 20:57 107 H 14 94 06/05/24 20:50 36.9 C 06/05/24 20:03 107 H 12 96 06/05/24 20:00 133/90 06/05/24 20:00 133/90 06/05/24 20:00 133/90 06/05/24 19:51 108 H 13 96 06/05/24 19:15 106 H 18 149/101 H 95 O2 Del Method FiO2 06/06/24 05:00 06/06/24 05:00 06/06/24 05:00 06/06/24 05:00 06/06/24 04:24 06/06/24 04:00 06/06/24 04:00 06/06/24 03:45 06/06/24 03:03 06/06/24 03:00 06/06/24 03:00 06/06/24 03:00 06/06/24 02:57 06/06/24 02:15 06/06/24 02:00 06/06/24 01:48 06/06/24 01:23 06/06/24 00:00 06/06/24 00:00 06/06/24 00:00 06/05/24 23:30 21 06/05/24 23:03 06/05/24 23:00 06/05/24 23:00 06/05/24 22:48 06/05/24 22:15 06/05/24 21:03 06/05/24 21:02 06/05/24 21:02 06/05/24 21:02 06/05/24 21:02 06/05/24 20:57 06/05/24 20:50 06/05/24 20:03 06/05/24 20:00 06/05/24 20:00 06/05/24 20:00 06/05/24 19:51 06/05/24 19:15 Room Air (1) Acute pancreatitis Acute pancreatitis complication: unspecified Pancreatitis type: drug induced Qualified Code(s): K85.30 - Drug induced acute pancreatitis without necrosis or infection (2) Diabetic ketoacidosis Diabetes mellitus complication detail: without coma Diabetes mellitus type: type 2 Qualified Code(s): E11.10 - Type 2 diabetes mellitus with ketoacidosis without coma
--- NOTE | 2024-06-06 07:43 | Billing Data ---
Date of Service June 06, 2024 Coding Level of Care Code 70840 SUB INP/OBS CARE MIN
--- NOTE | 2024-06-06 08:03 | Ultrasound Report ---
EXAM: US abdomen limited CLINICAL HISTORY: HX: H/O PANCREATITIS. TECHNIQUE: Ultrasound examination of the RUQ was performed using a [high-frequency transducer]. Scanning was performed with the patient in supine position. The following structures were specifically evaluated: COMPARISON: None available. FINDINGS: Liver: Liver size: Enlarged in size measures 21.7 cm and shows bright echotexture. No evidence of focal lesions, cysts, or masses. Hepatic vasculature appears normal. Gallbladder: Gallbladder size:Is partly distended and shows multiple echodense shadows possibility of gallstones. [Gallbladder wall thickness measures 1.9 mm]. No evidence of gallbladder edema sign of acute cholecystitis. PANCREAS: Limited visualized due to dense overlying bowel gases. Biliary Tree: Common bile duct diameter: Not visualized due to bowel gases. Right Kidney: Right kidney size:Normal in size and shows normal corticomedullary differentiation. No evidence of hydronephrosis renal cyst or mass/stone seen. IMPRESSION: Moderately enlarged fatty liver. Grade 3. Cholelithiasis. RECOMMENDATIONS: Clinical correlation with symptoms and further evaluation as indicated. Electronically signed by Verito Flores 06-06-2024 08:02 AM
[2024-06-06] MEDS: ATORVASTATIN 40 MG TAB PO SCH (08:10)
[2024-06-06] MEDS: dilTIAZem HCL 120 MG CAPCR PO SCH (08:11)
[2024-06-06] MEDS: LANTUS PER UNIT CHARGE SC ONE (10:55)
[2024-06-06] MEDS: INSULIN ASPART PER UNIT CHARGE SC SCH ×2 (11:52→15:09)
--- NOTE | 2024-06-06 13:35 | Pharmacy Report ---
Pharmacy Glycemic Short Note 2 - Date of Service June 06, 2024 - Glycemic Short BSG Results (Last 24 hours): 06/05/24 06/05/24 06/05/24 14:10 17:19 19:47 Glucose 837 H* 729 H* POC Glucose 535 H* 06/05/24 06/05/24 06/05/24 19:50 19:51 21:01 Glucose 506 H* POC Glucose 536 H* 402 H* 06/05/24 06/05/24 06/05/24 22:01 23:02 23:45 Glucose 207 H POC Glucose 353 H* 260 H 06/06/24 06/06/24 06/06/24 00:03 01:01 02:01 Glucose POC Glucose 187 H 199 H 231 H 06/06/24 06/06/24 06/06/24 03:12 03:59 04:04 Glucose 390 H* POC Glucose 230 H 223 H 06/06/24 06/06/24 06/06/24 04:45 06:00 07:26 Glucose 226 H POC Glucose 241 H 220 H 06/06/24 06/06/24 06/06/24 10:12 10:59 12:15 Glucose POC Glucose 226 H 200 H 141 H OUTPATIENT ANTIDIABETIC REGIMEN: * dulaglutide 3mg SQ weekly HbA1C: 15.4% ASSESSMENT: * Pt is a 68 YOM admitted with acute pancreatitis and DKA. History of DM2 on Trulicity at home. Pharmacy consulted to assist with inpatient glycemic management. * Initial labs: BSG-535, AG 25, bicarb-13, pH 7.25. Initiated on an insulin drip per DKA protocol ~ 1600 yesterday. * This AM, AG-10, bicarb-18. Diet ordered. Discussed @ rounds - will transition to SQ. * Lantus 20 units SQ X 1 (~0.18unit/kg), overlapped with drip for ~1.5h. Novolog ACHS moderate stress scale with overnight checks tonight. PLAN FOR INPATIENT GLYCEMIC CONTROL: * Hold outpatient oral diabetes medications * Basal insulin * Lantus 20 units SQ X 1 * Bolus insulin * NovoLog per scale ACHS or Q6hrs while NPO * Goal Range: Low 110 mg/dL - High 140 mg/dL * Correction Factor: 20 mg/dL/unit * Nutritional / Prandial insulin per carb ratio of 1 unit per 7 grams CHO consumed
[2024-06-06] MEDS: CALCIUM CITRATE 950 MG TAB PO SCH (17:17)
[2024-06-06] MEDS ORDERED: cefTRIAXone SODIUM 2,000 MG/50 ML BAG IV SCH (18:00)
[2024-06-06 20:55] LABS: Adenovirus F 40/41 PCR Not Detected (NotDetected); Astrovirus PCR Not Detected (NotDetected); Campylobacter PCR Not Detected (NotDetected); Cryptosporidium PCR Not Detected (NotDetected); Cyclospora cayetanensis PCR Not Detected (NotDetected); Entamoeba histolytica PCR Not Detected (NotDetected); Enteroaggregative E.coli(EAEC) Not Detected (NotDetected); Enteropathogenic E.coli (EPEC) Not Detected (NotDetected); Enterotoxigenic E.coli (ETEC) Not Detected (NotDetected); Giardia lamblia PCR Not Detected (NotDetected); Norovirus GI/GII PCR Not Detected (NotDetected); Plesiomonas shigelloides PCR Not Detected (NotDetected); Rotavirus A PCR Not Detected (NotDetected); Salmonella PCR Not Detected (NotDetected); Sapovirus PCR Not Detected (NotDetected); Shiga-like Toxin E.coli (STEC) Not Detected (NotDetected); Shigella/Enteroinvasive E.coli Not Detected (NotDetected); Vibrio cholerae PCR Not Detected (NotDetected); Vibrio species PCR Not Detected (NotDetected); Yersinia enterocolitica PCR Not Detected (NotDetected)
[2024-06-07] MEDS: INSULIN ASPART PER UNIT CHARGE SC SCH ×2 (00:25→04:19)
[2024-06-07 01:17] LABS: BUN Creatinine Ratio 37.4 (10-20); Calcium 7.3 mg/dl (8.6-10.3); Creatinine Clr Calc Pharmacy 53.1 ml/min; Potassium 4.2 mmol/L (3.5-5.1)
[2024-06-07] MEDS: LANTUS PER UNIT CHARGE SC SCH (04:19)
[2024-06-07 06:41] LABS: Basophils # (auto) 0.05 K/uL (0.00-0.20); Basophils % (auto) 0.3 %; Eosinophils # (auto) 0.16 K/uL (0.00-0.50); Hematocrit (blood only) 40.2 % (42.0-52.0); Hemoglobin 13.9 g/dl (14.0-18.0); Immature Granulocytes # (auto) 0.17 K/uL (0.01-0.20); Immature Granulocytes % (auto) 1.1 %; Lymphocytes # (auto) 1.69 K/uL (1.20-3.40); Mean Corpuscular Hgb Conc 34.6 g/dL (32.0-36.0); Mean Corpuscular Volume 83.9 fL (80.0-100.0); Mean Platelet Volume 12.4 fL (9.4-12.4); Monocytes # (auto) 1.51 K/uL (0.11-0.59); Monocytes % (auto) 9.8 %; Neutrophils # (auto) 11.85 K/uL (1.40-6.50); Neutrophils % (auto) 76.8 %; Platelet Count 338 K/uL (130-400); RDW Coefficient of Variation 12.3 % (11.5-14.5); RDW Standard Deviation 37.9 fL (36.4-46.3); Red Blood Count 4.79 M/uL (4.70-6.10); White Blood Count 15.43 K/ul (4.8-10.8)
--- NOTE | 2024-06-07 07:05 | Hospitalist Progress Note ---
Date of Service June 07, 2024 Assessment & Plan (1) Acute pancreatitis: (2) Diabetic ketoacidosis: (3) PHIL (acute kidney injury): (4) Type 2 diabetes mellitus with proteinuria: (5) Poor compliance: (6) Viral upper respiratory infection: (7) Hypertriglyceridemia: Plan #Acute pancreatitis: -Severe per Zeeshan's criteria at time of admission. -CT evidence of acute pancreatitis. Elevated lipase. -Elevated triglycerides of 345. -No abdominal pain. -Will hold GLP-1, should DC this medication at time of discharge -Given 2 L NSS bolus, clinically improved. #Diabetic ketoacidosis: -Patient presented to the ED with a glucose of 535. -Started on IV insulin for DKA as well as have NSS with KCl. -Was admitted to the ICU and gap closed. -Switch to SQ insulin once anion gap closed -Continue with BMP in the a.m. #Sepsis: ?urinary/diarrhea source -Recent antibiotics with Augmentin/azithromycin for LRTI -Biofire PCR - coronavirus NL63 -Empiric ceftriaxone -Blood cultures negative today. Stool PCR negative. # Altered mental status -Patient with some cognitive decline versus altered mental status which may be acute in nature. -CT head at time of admission was negative. -May be secondary to DKA, sepsis, and/or acute pancreatitis. -Discussed with patient's at bedside states that he is slowly improving. -May affect discharge meds for patient as insulin therapy may be difficult for the patient based on cognitive status. -Should follow-up with PCP after discharge to assess altered mental status versus cognitive decline. #PHIL (acute kidney injury): -No obstructive cause on CT -Suspect pre-renal -Presented with a creatinine of 2.30, slowly improving. #Type 2 diabetes mellitus with proteinuria: -Hemoglobin A1c of 15.4, previously 8.2 in July 2023 -Will discontinue GLP-1 at this time due to acute pancreatitis. -Initially started on IV insulin for DKA, will transition to sliding scale insulin with Lantus coverage. -Glycemic pharmacy management consulted. -Will also consult diabetes education. -Patient has been on metformin in the past but has not tolerated well. -Will need completely new diabetic agents at time of discharge. -Instructed patient's that she may need to be involved in the care of his medication. #Obstructive sleep apnea of adult: -CPAP HS - although he notes not using his home machine for years #Hypertension: -Hold spironolactone, irbesartan until clinically stable. -Monitor on telemetry #H/O splenectomy VTE Prophylaxis - heparin 5000 units SQ q8h Diet -low-fat, type 2 diabetes Disposition -PCU/tele Admission and Anticipated Discharge Date Admission Date: June 05, 2024 Supervising Physician Co-Signing Physician Notes Attending Physician Supervision Note: I independently interviewed and examined the patient and verified the cunningham history and physical, reviewed labs and image studies and agree with findings and care plan noted above. sleeping in bed. on waking up - appropriately conversive. Oriented to place and self. vitals noted nad heent nc at mmm breathing unlabored no accessory muscles good effort skin no rashes no pallor or icterus neuro no focal deficits. Pancreatitis resolved. DKA - resolved PHIL - improving. s/p iVF resuscitation. follow renal fx. DM - uncontrolled. A1c 15. Diabetes education. Will need to be on insulin. Sleep apnea - but doesn't use cpap at home. Cognitive deficit - will need formal evaluation to assess baseline fx. Anticipate d/c home in am Subjective Patient seen bedside this morning. Patient is alert and oriented x 2. Also assessed with patient's at bedside states that he is a little more confused than normal but is basically at his baseline. They do state that he has not been having any issues with memory over the past year. Patient's is not involved in patient taking his medication. Patient states that he does take his medications pretty regularly. Review of Systems Review of Systems: All systems reviewed & are unremarkable except as noted in Subjective Physical Exam Physical Exam: Constitutional: well-appearing, no acute distress, mild confusion HEENT: NCAT, no conjunctival injection CV: regular rhythm, no murmur appreciated, extremities well-perfused, no LE edema Resp: CTABL, no wheezes/rales/rhonchi appreciated, no increased work of breathing GI: soft, nondistended, nontender, BS normoactive MSK: no gross deformities appreciated Skin: warm, dry, no rash appreciated Neuro: Alert and oriented x 2 no focal neurologic deficit appreciated Results & Data Results & Data Vital Signs (Past 12 Hours) Vital Signs Temp Pulse Pulse Resp BP Pulse Ox O2 Del Method 06/07/24 02:50 37.4 C 91 H 18 96/70 L 96 Room Air 06/06/24 23:51 94 H 06/06/24 22:58 36.6 C 90 18 105/68 97 Room Air 06/06/24 19:37 36.5 C 87 18 138/82 97 Room Air (1) Acute pancreatitis Acute pancreatitis complication: unspecified Pancreatitis type: drug induced Qualified Code(s): K85.30 - Drug induced acute pancreatitis without necrosis or infection (2) Diabetic ketoacidosis Diabetes mellitus complication detail: without coma Diabetes mellitus type: type 2 Qualified Code(s): E11.10 - Type 2 diabetes mellitus with ketoacidosis without coma
[2024-06-07 07:20] LABS: BUN Creatinine Ratio 39.4 (10-20); Bilirubin Direct 0.1 mg/dl (0-0.2); Bilirubin,Total 0.4 mg/dl (0.2-1.0); Calcium 8.3 mg/dl (8.6-10.3); Creatinine Clr Calc Pharmacy 62.6 ml/min; Magnesium 2.7 mg/dl (1.7-2.4); Phosphorus 2.3 mg/dl (2.5-4.9); Total Protein 6.1 gm/dl (6.0-8.3)
[2024-06-07] MEDS: LANTUS PER UNIT CHARGE SC ONE ×2 (08:27→20:50)
[2024-06-07] MEDS: MELATONIN 3 MG TAB PO PRN (20:51)
[2024-06-08 06:39] LABS: Basophils # (auto) 0.08 K/uL (0.00-0.20); Basophils % (auto) 0.5 %; Eosinophils # (auto) 0.23 K/uL (0.00-0.50); Eosinophils % (auto) 1.3 %; Hematocrit (blood only) 39.5 % (42.0-52.0); Hemoglobin 13.2 g/dl (14.0-18.0); Immature Granulocytes % (auto) 2.9 %; Lymphocytes # (auto) 2.22 K/uL (1.20-3.40); Lymphocytes % (auto) 12.7 %; Mean Corpuscular Hemoglobin 28.5 pg (25.0-34.0); Mean Corpuscular Hgb Conc 33.4 g/dL (32.0-36.0); Mean Corpuscular Volume 85.3 fL (80.0-100.0); Mean Platelet Volume 12.5 fL (9.4-12.4); Monocytes # (auto) 1.76 K/uL (0.11-0.59); Monocytes % (auto) 10.1 %; Neutrophils # (auto) 12.69 K/uL (1.40-6.50); Neutrophils % (auto) 72.5 %; Platelet Count 321 K/uL (130-400); RDW Coefficient of Variation 12.6 % (11.5-14.5); RDW Standard Deviation 38.7 fL (36.4-46.3); Red Blood Count 4.63 M/uL (4.70-6.10); White Blood Count 17.48 K/ul (4.8-10.8)
--- NOTE | 2024-06-08 06:48 | Discharge Summary ---
Date of Service June 08, 2024 Admission HPI Per Admitting Provider Juan Cooper is a 68 year old male with T2DM who presents to the ER via EMS on advice of his due to altered mental state. She reports today he has been having hallucinations, generally weak and more confused than usual. He has been unwell for the last week and a half since the . Initially having headaches and thought he had a sinus infection. He took his Trulicity as usual on the . He remained most bed bound during this time. He went to his PCP on May 30 and diagnosed with a lower respiratory tract infection and given history of splenectomy was started on Augmentin and azithromycin. He reports compliance with taking antibiotics although felt increasingly worse on antibiotics with loss of appetite and eating and drinking less. He notes some diarrhea with melena and bright red blood in stool but is unsure about this. No abdominal pain, nausea or vomiting. He notes not taking any of his usual medications since Sunday. No specific urinary symptoms. He reports chills but no objective f mone. No prior episodes of pancreatitis. He reports no alcohol in the last week, occasional use prior to this. He takes Trulicity for his diabetes for the last few years but was increased approximately 6 months ago. Discharge Data Allergies Allergy/AdvReac Type Severity Reaction Status Date / Time Aminoglycosides Allergy Severe Localized Verified 06/05/24 15:36 swelling + rash bacitracin Allergy Severe Localized Verified 06/05/24 15:36 swelling + rash codeine Allergy Severe Flushing, Verified 06/05/24 15:36 hot flashes neomycin Allergy Severe Localized Verified 06/05/24 15:36 swelling + rash polymyxin B Allergy Severe Localized Verified 06/05/24 15:36 swelling + rash cat dander Allergy Intermediate Eye Verified 06/05/24 15:36 swelling, sneezing Consultations 06/05/24 17:25 Consult Drum Sander Routine Ordered Studies 06/05/24 14:22 CT Abd and Pelvis [CT abd pelvis wo con] Stat CT head/brain wo con Stat 06/06/24 US abdomen limited Urgent Hospital Course (1) Acute pancreatitis: (2) Diabetic ketoacidosis: (3) PHIL (acute kidney injury): (4) Type 2 diabetes mellitus with proteinuria: (5) Poor compliance: (6) Viral upper respiratory infection: (7) Hypertriglyceridemia: Plan #Acute pancreatitis: -Severe per Zeeshan's criteria at time of admission. -CT evidence of acute pancreatitis. Elevated lipase. -Elevated triglycerides of 345. -No abdominal pain. -Will hold GLP-1, should DC this medication at time of discharge -Given 2 L NSS bolus, clinically improved. #Diabetic ketoacidosis: -Patient presented to the ED with a glucose of 535. -Started on IV insulin for DKA as well as have NSS with KCl. -Was admitted to the ICU and gap closed. -Switch to SQ insulin once anion gap closed -Continue with BMP in the a.m. #Sepsis: ?urinary/diarrhea source -Recent antibiotics with Augmentin/azithromycin for LRTI -Biofire PCR - coronavirus NL63 -Empiric ceftriaxone -Blood cultures negative today. Stool PCR negative. # Altered mental status -Patient with some cognitive decline versus altered mental status which may be acute in nature. -CT head at time of admission was negative. -May be secondary to DKA, sepsis, and/or acute pancreatitis. -Discussed with patient's at bedside states that he is slowly improving. -May affect discharge meds for patient as insulin therapy may be difficult for the patient based on cognitive status. -Should follow-up with PCP after discharge to assess altered mental status versus cognitive decline. #PHIL (acute kidney injury): -No obstructive cause on CT -Suspect pre-renal -Presented with a creatinine of 2.30, slowly improving. #Type 2 diabetes mellitus with proteinuria: -Hemoglobin A1c of 15.4, previously 8.2 in July 2023 -Will discontinue GLP-1 at this time due to acute pancreatitis. -Initially started on IV insulin for DKA, will transition to sliding scale insulin with Lantus coverage. -Glycemic pharmacy management consulted. -Will also consult diabetes education. -Patient has been on metformin in the past but has not tolerated well. -Will need completely new diabetic agents at time of discharge. -Instructed patient's that she may need to be involved in the care of his medication. #Obstructive sleep apnea of adult: -CPAP HS - although he notes not using his home machine for years #Hypertension: -Hold spironolactone, irbesartan until clinically stable. -Monitor on telemetry #H/O splenectomy VTE Prophylaxis - heparin 5000 units SQ q8h Diet -low-fat, type 2 diabetes Disposition -PCU/tele Discharge Plan Discharge Items Reason For Visit: SEVERE PANCREATITIS,DKA Follow-up/Referrals: Jose David Davenport, DO [Primary Care Provider] - Stand-Alone Forms: My [facility] Medications and DC Order Prescriptions: No Action betamethasone dipropionate 0.05 % cream 1 applic topical BID PRN (Reason: Rash) Qty: 60 0RF diltiazem HCl 420 mg capsule,extended release 24hr 420 mg PO QPM Qty: 90 3RF irbesartan 300 mg tablet 300 mg PO DAILY Qty: 90 3RF spironolactone 50 mg tablet 50 mg PO DAILY Qty: 90 2RF (DME) [facility] See Dose Instructions .ROUTE .MEDSUPPLY Qty: 1 0RF Dose Instruction: As directed Rx Instructions: nasal mask fexofenadine 180 mg tablet 180 mg PO HS [id number] acid-lutein [Adult Multivitamin (w-lutein)] 200-137.5 mcg tablet,chewable 1 tab PO DAILY (DME) lancets [OneTouch Delica Lancets] 33 gauge [facility] [place] See Dose Instructions .ROUTE .MEDSUPPLY Qty: 100 Rx Instructions: As directed - twice daily & as needed (DME) OneTouch Ultra Blue Test Strip strip See Dose Instructions .ROUTE .MEDSUPPLY Qty: 10 Rx Instructions: As directed - test twice daily and as needed (DME) [employer] [facility] [place] See Rx Instructions .MEDSUPPLY Qty: 1 0RF Rx Instructions: As directed aspirin [Siri Low Dose Aspirin] 81 mg tablet,delayed release (DR/EC) 81 mg PO DAILY Rx Instructions: Take to prevent blood clots. Trulicity 3 mg/0.5 mL pen injector 3 mg subcut WK Rx Instructions: Tuesdays amoxicillin 500 mg capsule 2,000 mg PO DIRECTED PRN (Reason: PRIOR TO DENTAL PROCEDURES) Rx Instructions: Take 4 capsules prior to dental appointment acetaminophen [Tylenol Extra Strength] 500 mg tablet 1,000 mg PO TID PRN (Reason: Pain) Rx Instructions: Take 3 times per day to lessen pain. Admission Data Admit Date/Time: 06/05/24 17:16 Attending Provider: Talya Wright Admit Provider: Gerhard Orozco Primary Care Provider: Jose David Davenport Other Providers: Gerhard Orozco; Danie Brooks
[2024-06-08 07:06] LABS: Calcium 8.2 mg/dl (8.6-10.3); Creatinine Clr Calc Pharmacy 58.3 ml/min; Phosphorus 2.6 mg/dl (2.5-4.9); Potassium 4.3 mmol/L (3.5-5.1)
[2024-06-08] MEDS: INSULIN HUMAN REGULAR PER UNIT 10 UNITS in SYRINGE 9.9 ML IV ONE (08:35)
[2024-06-08] MEDS: LANTUS PER UNIT CHARGE SC SCH ×2 (08:36→20:58)
[2024-06-08 08:58] LABS: Appearance Urine Cloudy (Clear); Bilirubin Urine Negative (Negative); Blood Urine 3+ (Negative); Color Urine Yellow; Epithelial Cell Urine Auto 0-2 /hpf (0-2); Glucose Urine UA 3+ (Negative); Ketones Urine 1+ (Negative); Leukocyte Esterase Urine Negative (Negative); Nitrite Urine Negative (Negative); Protein Urine 1+ (Negative); Specific Gravity Urine 1.023 (1.000-1.030); Urobilinogen Urine Negative (Negative)
[2024-06-08 09:13] LABS: Bacteria Urine Automated 1+ (None Seen); Uric Acid Crystals Urine Present (None Prsent)
[2024-06-08] MEDS ORDERED: cefTRIAXone SODIUM 1,000 MG/50 ML BAG IV SCH (09:15)
--- NOTE | 2024-06-08 09:48 | Hospitalist Progress Note ---
Date of Service June 08, 2024 Assessment & Plan (1) Acute pancreatitis: (2) Diabetic ketoacidosis: (3) PHIL (acute kidney injury): (4) Type 2 diabetes mellitus with proteinuria: (5) Poor compliance: (6) Viral upper respiratory infection: (7) Hypertriglyceridemia: (8) Urinary tract infection: Plan #Acute pancreatitis: -Severe per Zeeshan's criteria at time of admission. -CT evidence of acute pancreatitis. Elevated lipase. -Elevated triglycerides of 345. -No abdominal pain. -Will hold GLP-1, should DC this medication at time of discharge -Given 2 L NSS bolus, clinically improved. #Diabetic ketoacidosis: -Patient presented to the ED with a glucose of 535. -Started on IV insulin for DKA as well as have NSS with KCl. -Was admitted to the ICU and gap closed. -Switch to SQ insulin once anion gap closed -Continue with BMP in the a.m. #Sepsis: ?urinary/diarrhea source -Recent antibiotics with Augmentin/azithromycin for LRTI -Biofire PCR - coronavirus NL63 -Empiric ceftriaxone was stopped in the ICU -Blood cultures negative. Stool PCR negative. -On 06/08, patient was having increase in leukocytosis. UA showed probable UTI. -Pro-Vasu and lactate negative. Slight rise in CRP. -Restarted ceftriaxone and repeat blood cultures. Urine culture pending. -PT OT recommend short-term rehab after discharge. # Altered mental status -Patient with some cognitive decline versus altered mental status which may be acute in nature. -CT head at time of admission was negative. -May be secondary to DKA, sepsis, and/or acute pancreatitis. -Discussed with patient's at bedside states that he is slowly improving. -May affect discharge meds for patient as insulin therapy may be difficult for the patient based on cognitive status. -Should follow-up with PCP after discharge to assess altered mental status versus cognitive decline. #PHIL (acute kidney injury): -No obstructive cause on CT -Suspect pre-renal -Presented with a creatinine of 2.30, slowly improving. #Type 2 diabetes mellitus with proteinuria: -Hemoglobin A1c of 15.4, previously 8.2 in July 2023 -Will discontinue GLP-1 at this time due to acute pancreatitis. -Initially started on IV insulin for DKA, will transition to sliding scale insulin with Lantus coverage. -Glycemic pharmacy management consulted. -Will also consult diabetes education. -Patient has been on metformin in the past but has not tolerated well. -Will need completely new diabetic agents at time of discharge. Working on better controlling his glucose with pharmacy. -Instructed patient's that she may need to be involved in the care of his medication. Will most likely need insulin at time of discharge. #Obstructive sleep apnea of adult: -CPAP HS - although he notes not using his home machine for years #Hypertension: -Hold spironolactone, irbesartan until clinically stable. -Monitor on telemetry #H/O splenectomy VTE Prophylaxis - heparin 5000 units SQ q8h Diet -low-fat, type 2 diabetes Disposition -PCU/tele Dispo: PT OT recommending short-term rehab. Admission and Anticipated Discharge Date Admission Date: June 05, 2024 Supervising Physician Co-Signing Physician Notes Attending Physician Supervision Note: I independently interviewed and examined the patient and verified the cunningham history and physical, reviewed labs and image studies and agree with findings and care plan noted above. Alert sitting at the edge of bed having lunch. remembered me. Oriented to place and self. vitals noted nad heent nc at mmm breathing unlabored no accessory muscles good effort skin no rashes no pallor or icterus neuro no focal deficits. Pancreatitis resolved. ? sec to GLP-1 agonist. DKA - resolved PHIL - improving. s/p iVF resuscitation. follow renal fx. DM - uncontrolled. A1c 15. Diabetes education. Insulin basal and SSI added - This is new for him. Sleep apnea - but doesn't use cpap at home. Cognitive deficit - will need formal evaluation to assess baseline fx. Deconditioning - needs rehab. Subjective Patient seen bedside this morning. States that he is feeling better. He is alert and oriented x 3. Denies any shortness of breath, chest pain, nausea, or vomiting. Review of Systems Review of Systems: All systems reviewed & are unremarkable except as noted in Subjective Physical Exam Constitutional: WD/WN, vitals as above ENMT: external ear and nose normal, oropharynx normal Neck: trachea midline, no thyromegaly Respiratory: normal respiratory effort, lungs clear to auscultation Cardiovascular: RRR, no murmur, no edema Gastrointestinal (Abdomen): normal bowel sounds, soft, nontender, no hepatosplenomegaly Skin: no rashes, warm and dry Neurologic: moves all extremities, awake and + confused; no focal motor deficits Psychiatric: Orientation: oriented x 3 Results & Data Results & Data Vital Signs (Past 12 Hours) Vital Signs Temp Pulse Pulse Resp BP Pulse Ox O2 Del Method 06/08/24 08:57 Room Air 06/08/24 07:33 95 H 06/08/24 07:31 36.8 C 92 H 18 117/73 95 Room Air 06/08/24 03:29 36.8 C 82 18 131/88 95 Room Air 06/07/24 23:52 79 06/07/24 23:14 36.9 C 82 16 117/76 95 Room Air (1) Acute pancreatitis Acute pancreatitis complication: unspecified Pancreatitis type: drug induced Qualified Code(s): K85.30 - Drug induced acute pancreatitis without necrosis or infection (2) Diabetic ketoacidosis Diabetes mellitus complication detail: without coma Diabetes mellitus type: type 2 Qualified Code(s): E11.10 - Type 2 diabetes mellitus with ketoacidosis without coma
[2024-06-08] MEDS: cefTRIAXone SODIUM 2,000 MG/50 ML BAG IV SCH (10:37)
[2024-06-08] MEDS: SODIUM CHLORIDE 0.9% 500 ML IV ONE (10:41)
--- NOTE | 2024-06-08 14:25 | Pharmacy Report ---
Pharmacy Glycemic Short Note 2 - Date of Service June 08, 2024 - Glycemic Short BSG Results (Last 24 hours): 06/07/24 06/07/24 06/08/24 15:49 20:29 05:49 Glucose 321 H* POC Glucose 210 H 270 H 06/08/24 06/08/24 06/08/24 07:03 10:24 11:05 Glucose POC Glucose 308 H* 303 H* 313 H* 06/08/24 06/08/24 11:05 14:11 Glucose POC Glucose 308 H* 225 H OUTPATIENT ANTIDIABETIC REGIMEN: * dulaglutide 3mg SQ weekly HbA1C: 15.4% (06/05/24) ASSESSMENT: 06/08/24: * Blood sugars have remained poorly controlled since time of insulin gtt transition on 06/06/24 despite aggressive insulin regimen * Received 92 units of insulin yesterday (40 units of basal and 52 units of prandial/correctional bolus) * Fasting blood sugar of 308 mg/dL this morning - given one-time IV insulin bolus * On ceftriaxone for concern of UTI 06/06/24: * Pt is a 68 YOM admitted with acute pancreatitis and DKA. History of DM2 on Trulicity at home. Pharmacy consulted to assist with inpatient glycemic management. * Initial labs: BSG-535, AG 25, bicarb-13, pH 7.25. Initiated on an insulin drip per DKA protocol ~ 1600 yesterday. * This AM, AG-10, bicarb-18. Diet ordered. Discussed @ rounds - will transition to SQ. * Lantus 20 units SQ X 1 (~0.18unit/kg), overlapped with drip for ~1.5h. Novolog ACHS moderate stress scale with overnight checks tonight. PLAN FOR INPATIENT GLYCEMIC CONTROL: * Hold outpatient oral diabetes medications * 10 unit IV insulin bolus x 1 for blood sugar > 300 mg/dL * Basal insulin - increase * Lantus 50 units SC qAM * Lantus 0-10 units SC HS (see EHR for details) * Bolus insulin - tighten * NovoLog per scale ACHS or Q6hrs while NPO * Goal Range: Low 110 mg/dL - High 140 mg/dL * Correction Factor: 10 mg/dL/unit * Nutritional / Prandial insulin per carb ratio of 1 unit per 3 grams CHO consumed
[2024-06-08 14:40] LABS: Basophils # (auto) 0.07 K/uL (0.00-0.20); Basophils % (auto) 0.4 %; Eosinophils # (auto) 0.16 K/uL (0.00-0.50); Eosinophils % (auto) 0.9 %; Hematocrit (blood only) 37.1 % (42.0-52.0); Hemoglobin 12.8 g/dl (14.0-18.0); Immature Granulocytes # (auto) 0.44 K/uL (0.01-0.20); Immature Granulocytes % (auto) 2.5 %; Lymphocytes # (auto) 2.33 K/uL (1.20-3.40); Lymphocytes % (auto) 13.2 %; Mean Corpuscular Hemoglobin 29.2 pg (25.0-34.0); Mean Corpuscular Hgb Conc 34.5 g/dL (32.0-36.0); Mean Corpuscular Volume 84.5 fL (80.0-100.0); Monocytes # (auto) 1.37 K/uL (0.11-0.59); Monocytes % (auto) 7.8 %; Neutrophils # (auto) 13.23 K/uL (1.40-6.50); Neutrophils % (auto) 75.2 %; Nucleated RBC # (auto) 0.02 K/uL (0.00-0.12); Nucleated RBC % (auto) 0.1 %; Platelet Count 322 K/uL (130-400); RDW Coefficient of Variation 12.5 % (11.5-14.5); RDW Standard Deviation 38.1 fL (36.4-46.3); Red Blood Count 4.39 M/uL (4.70-6.10)
[2024-06-08 15:00] LABS: BUN Creatinine Ratio 25.5 (10-20); C Reactive Protein 5.81 mg/dl (0-0.5); Calcium 7.9 mg/dl (8.6-10.3); Creatinine Clr Calc Pharmacy 55.6 ml/min; Potassium 3.7 mmol/L (3.5-5.1)
[2024-06-09 07:35] LABS: Basophils % (auto) 0.5 %; Eosinophils # (auto) 0.28 K/uL (0.00-0.50); Eosinophils % (auto) 1.4 %; Hematocrit (blood only) 38.9 % (42.0-52.0); Hemoglobin 12.9 g/dl (14.0-18.0); Immature Granulocytes # (auto) 0.91 K/uL (0.01-0.20); Immature Granulocytes % (auto) 4.5 %; Lymphocytes # (auto) 2.78 K/uL (1.20-3.40); Lymphocytes % (auto) 13.8 %; Mean Corpuscular Hemoglobin 28.7 pg (25.0-34.0); Mean Corpuscular Hgb Conc 33.2 g/dL (32.0-36.0); Mean Corpuscular Volume 86.6 fL (80.0-100.0); Mean Platelet Volume 12.1 fL (9.4-12.4); Monocytes # (auto) 1.81 K/uL (0.11-0.59); Neutrophils # (auto) 14.31 K/uL (1.40-6.50); Neutrophils % (auto) 70.8 %; Nucleated RBC # (auto) 0.02 K/uL (0.00-0.12); Nucleated RBC % (auto) 0.1 %; Platelet Count 341 K/uL (130-400); RDW Coefficient of Variation 12.9 % (11.5-14.5); RDW Standard Deviation 40.8 fL (36.4-46.3); Red Blood Count 4.49 M/uL (4.70-6.10); White Blood Count 20.19 K/ul (4.8-10.8)
[2024-06-09 07:47] LABS: BUN Creatinine Ratio 21.4 (10-20); Creatinine Clr Calc Pharmacy 63.7 ml/min; Phosphorus 2.1 mg/dl (2.5-4.9); Potassium 4.1 mmol/L (3.5-5.1)
--- NOTE | 2024-06-09 07:58 | Hospitalist Progress Note ---
Date of Service June 09, 2024 Assessment & Plan (1) Acute pancreatitis: (2) Diabetic ketoacidosis: (3) PHIL (acute kidney injury): (4) Type 2 diabetes mellitus with proteinuria: (5) Poor compliance: (6) Viral upper respiratory infection: (7) Hypertriglyceridemia: (8) Urinary tract infection: Plan #Acute pancreatitis: -Severe per Zeeshan's criteria at time of admission. -CT evidence of acute pancreatitis. Elevated lipase. -Elevated triglycerides of 345. -No abdominal pain. -Will hold GLP-1, should DC this medication at time of discharge -Given 2 L NSS bolus, clinically improved. #Diabetic ketoacidosis: -Patient presented to the ED with a glucose of 535. -Started on IV insulin for DKA as well as have NSS with KCl. -Was admitted to the ICU and gap closed. -Switch to SQ insulin once anion gap closed -Continue with BMP in the a.m. #Sepsis: ?urinary/diarrhea source -Recent antibiotics with Augmentin/azithromycin for LRTI -Biofire PCR - coronavirus NL63 -Empiric ceftriaxone was stopped in the ICU -Blood cultures negative. Stool PCR negative. -On 06/08, patient was having increase in leukocytosis. UA showed probable UTI. -Pro-Vasu and lactate negative. Slight rise in CRP. -Restarted ceftriaxone and repeat blood cultures. Urine culture pending. -PT OT recommend short-term rehab after discharge. # Altered mental status -Patient with some cognitive decline versus altered mental status which may be acute in nature. -CT head at time of admission was negative. -May be secondary to DKA, sepsis, and/or acute pancreatitis. -Discussed with patient's at bedside states that he is slowly improving. -May affect discharge meds for patient as insulin therapy may be difficult for the patient based on cognitive status. -Should follow-up with PCP after discharge to assess altered mental status versus cognitive decline. #PHIL (acute kidney injury): -No obstructive cause on CT -Suspect pre-renal -Presented with a creatinine of 2.30, slowly improving. #Type 2 diabetes mellitus with proteinuria: -Hemoglobin A1c of 15.4, previously 8.2 in July 2023 -Will discontinue GLP-1 at this time due to acute pancreatitis. -Initially started on IV insulin for DKA, will transition to sliding scale insulin with Lantus coverage. -Insulin glargine 60U daily, ISS ACHS -Will also consult diabetes education. -Patient has been on metformin in the past but has not tolerated well. -Will need completely new diabetic agents at time of discharge. Working on better controlling his glucose with pharmacy. -Instructed patient's that she may need to be involved in the care of his medication. Will most likely need insulin at time of discharge. #Obstructive sleep apnea of adult: -CPAP HS - although he notes not using his home machine for years #Hypertension: -Hold spironolactone, irbesartan until clinically stable. -Monitor on telemetry #H/O splenectomy VTE Prophylaxis - heparin 5000 units SQ q8h Diet -low-fat, type 2 diabetes Disposition -PCU/tele Dispo: PT OT recommending short-term rehab. Admission and Anticipated Discharge Date Admission Date: June 05, 2024 Supervising Physician Co-Signing Physician Notes I personally examined the patient and verified all cunningham points of history and exam, discussed case, and agree with decision making with Dr Lowe feeling better overall. Diet tolerating well. No significant abdominal pain. Vitals noted, in general he is awake and alert pleasant no distress. HEENT normocephalic atraumatic mucous membranes moist. Breathing unlabored no a ccessory muscle use good effort. Skin without rashes pallor or icterus. Pancreatitis resolved. Could possibly be secondary GLP1 agonist, but I also harbor pretty good suspicion that it is due to markedly uncontrolled diabetes given his A1c of 15.4 hyperglycemic dehydrationresolved PHIL - overall improved DM - uncontrolled. A1c 15. Diabetes education. discussed insulin, also discussed lifestyle change. Discussed the potential causative role of his uncontrolled diabetes and his acute pancreatitis, as well as long-term concerns for vascular disease including VT/stroke Sleep apnea - but doesn't use cpap at home. dispo to be determined based on his progress Subjective Patient seen and evaluated at bedside this morning. No acute events overnight. Overall feeling improved. No acute complaints this am. Review of Systems Review of Systems: reviewed, per HPI Physical Exam Physical Exam: Constitutional: age appropriate, no acute distress HEENT: NCAT, no conjunctival injection CV: well perfused Resp: no increased WOB GI: nondistended, nontender MSK: no gross deformities appreciated Skin: warm, dry, no rash appreciated Neuro: alert, oriented, no focal neurologic deficit appreciated Results & Data Results & Data Vital Signs (Past 12 Hours) Vital Signs Temp Pulse Pulse Resp BP BP Pulse Ox 06/09/24 07:30 36.5 C 88 18 142/69 H 98 06/09/24 03:07 36.8 C 90 18 147/75 H 96 06/09/24 00:04 82 06/08/24 23:37 37.0 C 83 18 120/84 95 O2 Del Method 06/09/24 07:30 Room Air 06/09/24 03:07 Room Air 06/09/24 00:04 06/08/24 23:37 Room Air Resident Activity Tracking Resident Involvement: Resident Care Provided Care Provided: Adult Hospital Medicine (1) Acute pancreatitis Acute pancreatitis complication: unspecified Pancreatitis type: drug induced Qualified Code(s): K85.30 - Drug induced acute pancreatitis without necrosis or infection (2) Diabetic ketoacidosis Diabetes mellitus complication detail: without coma Diabetes mellitus type: type 2 Qualified Code(s): E11.10 - Type 2 diabetes mellitus with ketoacidosis without coma
[2024-06-09] MEDS ORDERED: LANTUS PER UNIT CHARGE SC SCH ×2 (09:00)
[2024-06-09] MEDS: LANTUS PER UNIT CHARGE SC SCH (09:09)
[2024-06-09] MEDS: LANTUS PER UNIT CHARGE SC ONE (12:02)
--- NOTE | 2024-06-09 18:06 | Billing Data ---
Date of Service June 09, 2024 Coding Level of Care Code 39367 SUB INP/OBS CARE MIN
--- NOTE | 2024-06-09 18:07 | Billing Data ---
Date of Service June 09, 2024 Coding Level of Care Code 11929 SUB INP/OBS CARE MIN
[2024-06-10 06:26] LABS: Basophils # (auto) 0.08 K/uL (0.00-0.20); Basophils % (auto) 0.4 %; Eosinophils # (auto) 0.29 K/uL (0.00-0.50); Eosinophils % (auto) 1.5 %; Hematocrit (blood only) 36.5 % (42.0-52.0); Hemoglobin 12.2 g/dl (14.0-18.0); Immature Granulocytes # (auto) 0.73 K/uL (0.01-0.20); Immature Granulocytes % (auto) 3.7 %; Lymphocytes # (auto) 2.77 K/uL (1.20-3.40); Lymphocytes % (auto) 13.9 %; Mean Corpuscular Hgb Conc 33.4 g/dL (32.0-36.0); Mean Corpuscular Volume 86.7 fL (80.0-100.0); Mean Platelet Volume 11.5 fL (9.4-12.4); Monocytes # (auto) 1.96 K/uL (0.11-0.59); Monocytes % (auto) 9.8 %; Neutrophils # (auto) 14.11 K/uL (1.40-6.50); Neutrophils % (auto) 70.7 %; Platelet Count 330 K/uL (130-400); RDW Coefficient of Variation 12.7 % (11.5-14.5); RDW Standard Deviation 40.4 fL (36.4-46.3); Red Blood Count 4.21 M/uL (4.70-6.10); White Blood Count 19.94 K/ul (4.8-10.8)
[2024-06-10 06:39] LABS: BUN Creatinine Ratio 19.5 (10-20); C Reactive Protein 4.65 mg/dl (0-0.5); Calcium 8.1 mg/dl (8.6-10.3); Creatinine Clr Calc Pharmacy 70.6 ml/min; Potassium 3.7 mmol/L (3.5-5.1)
[2024-06-10] MEDS: LANTUS PER UNIT CHARGE SQ SCH (08:30)
--- NOTE | 2024-06-10 10:11 | Hospitalist Progress Note ---
Date of Service June 10, 2024 Assessment & Plan (1) Acute pancreatitis: (2) Diabetic ketoacidosis: (3) PHIL (acute kidney injury): (4) Type 2 diabetes mellitus with proteinuria: (5) Poor compliance: (6) Viral upper respiratory infection: (7) Hypertriglyceridemia: (8) Urinary tract infection: Plan #Type 2 diabetes mellitus with proteinuria: -Hemoglobin A1c of 15.4, previously 8.2 in July 2023 -Will discontinue GLP-1 at this time due to acute pancreatitis. -Initially started on IV insulin for DKA, will transition to sliding scale insulin with Lantus coverage. -Insulin glargine 60U daily, ISS ACHS -Will also consult diabetes education. -Patient has been on metformin in the past but has not tolerated well. -Will need completely new diabetic agents at time of discharge. Working on better controlling his glucose with pharmacy. -Instructed patient's that she may need to be involved in the care of his medication. Will most likely need insulin at time of discharge. #Acute pancreatitis: -Severe per Zeeshan's criteria at time of admission. -CT evidence of acute pancreatitis. Elevated lipase. -Elevated triglycerides of 345. -No abdominal pain. -Will hold GLP-1, should DC this medication at time of discharge -Given 2 L NSS bolus, clinically improved. #Diabetic ketoacidosis: -Patient presented to the ED with a glucose of 535. -Started on IV insulin for DKA as well as have NSS with KCl. -Was admitted to the ICU and gap closed. -Switch to SQ insulin once anion gap closed -Continue with BMP in the a.m. #Sepsis: ?urinary/diarrhea source -Recent antibiotics with Augmentin/azithromycin for LRTI -Biofire PCR - coronavirus NL63 -Empiric ceftriaxone was stopped in the ICU -Blood cultures negative. Stool PCR negative. -On 06/08, patient was having increase in leukocytosis. UA showed probable UTI. -Pro-Vasu and lactate negative. Slight rise in CRP. -Restarted ceftriaxone and repeat blood cultures. Urine culture pending. -PT OT recommend short-term rehab after discharge. # Altered mental status -Patient with some cognitive decline versus altered mental status which may be acute in nature. -CT head at time of admission was negative. -May be secondary to DKA, sepsis, and/or acute pancreatitis. -Discussed with patient's at bedside states that he is slowly improving. -May affect discharge meds for patient as insulin therapy may be difficult for the patient based on cognitive status. -Should follow-up with PCP after discharge to assess altered mental status versus cognitive decline. #PHIL (acute kidney injury): -No obstructive cause on CT -Suspect pre-renal -Presented with a creatinine of 2.30, slowly improving. #Obstructive sleep apnea of adult: -CPAP HS - although he notes not using his home machine for years #Hypertension: -Hold spironolactone, irbesartan until clinically stable. -Monitor on telemetry #H/O splenectomy VTE Prophylaxis - heparin 5000 units SQ q8h Diet -low-fat, type 2 diabetes Disposition -PCU/tele Dispo: PT OT recommending short-term rehab. Admission and Anticipated Discharge Date Admission Date: June 05, 2024 Subjective Patient seen and evaluated at bedside this morning. No acute events overnight. Tolerating diet well. Is ambulating in room well. Received total of 177U insulin glargine + aspart yesterday. Review of Systems Review of Systems: reviewed, per HPI Physical Exam Physical Exam: Constitutional: age appropriate, no acute distress HEENT: NCAT, no conjunctival injection CV: well perfused Resp: no increased WOB GI: nondistended, nontender MSK: no gross deformities appreciated Skin: warm, dry, no rash appreciated Neuro: alert, oriented, no focal neurologic deficit appreciated Results & Data Results & Data Vital Signs (Past 12 Hours) Vital Signs Temp Pulse Pulse Resp BP Pulse Ox O2 Del Method 06/10/24 08:02 36.9 C 103 H 18 134/79 97 Room Air 06/10/24 07:00 103 H 06/10/24 03:21 36.7 C 72 18 136/83 96 Room Air 06/09/24 23:01 36.7 C 86 18 116/69 97 Room Air 06/09/24 22:57 91 H Resident Activity Tracking Resident Involvement: Resident Care Provided Care Provided: Adult Hospital Medicine (1) Acute pancreatitis Pancreatitis type: drug induced Acute pancreatitis complication: unspecified Qualified Code(s): K85.30 - Drug induced acute pancreatitis without necrosis or infection (2) Diabetic ketoacidosis Diabetes mellitus type: type 2 Diabetes mellitus complication detail: without coma Qualified Code(s): E11.10 - Type 2 diabetes mellitus with ketoacidosis without coma
[2024-06-10 10:57] VITALS: RESP 19
[2024-06-10 16:13] VITALS: PULSE 74; TEMP 98.8; O2SAT 95
[2024-06-10 16:27] VITALS: BP 147/75
--- NOTE | 2024-06-10 17:55 | Discharge Summary ---
Date of Service June 10, 2024 Admission HPI Per Admitting Provider Juan Cooper is a 68 year old male with T2DM who presents to the ER via EMS on advice of his due to altered mental state. She reports today he has been having hallucinations, generally weak and more confused than usual. He has been unwell for the last week and a half since the . Initially having headaches and thought he had a sinus infection. He took his Trulicity as usual on the . He remained most bed bound during this time. He went to his PCP on May 30 and diagnosed with a lower respiratory tract infection and given history of splenectomy was started on Augmentin and azithromycin. He reports compliance with taking antibiotics although felt increasingly worse on antibiotics with loss of appetite and eating and drinking less. He notes some diarrhea with melena and bright red blood in stool but is unsure about this. No abdominal pain, nausea or vomiting. He notes not taking any of his usual medications since Sunday. No specific urinary symptoms. He reports chills but no objective f mone. No prior episodes of pancreatitis. He reports no alcohol in the last week, occasional use prior to this. He takes Trulicity for his diabetes for the last few years but was increased approximately 6 months ago. Admission Exam Per Admitting Provider Constitutional: WD/WN, vitals as aboveENMT: Mouth: + dry oral mucous membranes Neck: trachea midline, no thyromegalyRespiratory: normal respiratory effort, lungs clear to auscultationCardiovascular: RRR, no murmur, no edema Gastrointestinal (Abdomen): normal bowel sounds, soft, nontender, no hepatosplenomegalySkin: no rashes, warm and dryNeurologic: moves all extremities, awake and + confused; no focal motor deficitsPsychiatric: Orientation: alert, oriented to person and oriented to place; + not oriented to time Principal Diagnosis DKA, Pancreatitis Discharge Exam Constitutional: age appropriate, no acute distress HEENT: NCAT, no conjunctival injection CV: well perfused Resp: no increased WOB GI: nondistended, nontender MSK: no gross deformities appreciated Skin: warm, dry, no rash appreciated Neuro: alert, oriented, no focal neurologic deficit appreciated Discharge Data Allergies Allergy/AdvReac Type Severity Reaction Status Date / Time Aminoglycosides Allergy Severe Localized Verified 06/05/24 15:36 swelling + rash bacitracin Allergy Severe Localized Verified 06/05/24 15:36 swelling + rash codeine Allergy Severe Flushing, Verified 06/05/24 15:36 hot flashes neomycin Allergy Severe Localized Verified 06/05/24 15:36 swelling + rash polymyxin B Allergy Severe Localized Verified 06/05/24 15:36 swelling + rash cat dander Allergy Intermediate Eye Verified 06/05/24 15:36 swelling, sneezing Consultations 06/05/24 17:25 Consult Almond Huller Routine Ordered Studies 06/05/24 14:22 CT Abd and Pelvis [CT abd pelvis wo con] Stat CT head/brain wo con Stat 06/06/24 US abdomen limited Urgent Hospital Course (1) Acute pancreatitis: (2) Diabetic ketoacidosis: (3) PHIL (acute kidney injury): (4) Type 2 diabetes mellitus with proteinuria: (5) Poor compliance: (6) Viral upper respiratory infection: (7) Hypertriglyceridemia: (8) Urinary tract infection: Plan #Type 2 diabetes mellitus with proteinuria: -Hemoglobin A1c of 15.4, previously 8.2 in July 2023 -Will discontinue GLP-1 at this time due to acute pancreatitis. -Initially started on IV insulin for DKA, will transition to sliding scale insulin with Lantus coverage. -Insulin glargine 60U daily, ISS ACHS -Will also consult diabetes education. -Patient has been on metformin in the past but has not tolerated well. -Will need completely new diabetic agents at time of discharge. Working on better controlling his glucose with pharmacy. -Instructed patient's that she may need to be involved in the care of his medication. Will most likely need insulin at time of discharge. Plan at discharge is basal insulin 90U qAM, 30U with each meal #Acute pancreatitis: -Severe per Zeeshan's criteria at time of admission. -CT evidence of acute pancreatitis. Elevated lipase. -Elevated triglycerides of 345. -No abdominal pain. -Will hold GLP-1, should DC this medication at time of discharge -Given 2 L NSS bolus, clinically improved. #Diabetic ketoacidosis: -Patient presented to the ED with a glucose of 535. -Started on IV insulin for DKA as well as have NSS with KCl. -Was admitted to the ICU and gap closed. -Switch to SQ insulin once anion gap closed -Continue with BMP in the a.m. #Sepsis: ?urinary/diarrhea source -Recent antibiotics with Augmentin/azithromycin for LRTI -Biofire PCR - coronavirus NL63 -Empiric ceftriaxone was stopped in the ICU -Blood cultures negative. Stool PCR negative. -On 06/08, patient was having increase in leukocytosis. UA showed probable UTI. -Pro-Vasu and lactate negative. Slight rise in CRP. -Restarted ceftriaxone and repeat blood cultures. Urine culture pending. -PT OT recommend short-term rehab after discharge. # Altered mental status -Patient with some cognitive decline versus altered mental status which may be acute in nature. -CT head at time of admission was negative. -May be secondary to DKA, sepsis, and/or acute pancreatitis. -Discussed with patient's at bedside states that he is slowly improving. -May affect discharge meds for patient as insulin therapy may be difficult for the patient based on cognitive status. -Should follow-up with PCP after discharge to assess altered mental status versus cognitive decline. #PHIL (acute kidney injury): -No obstructive cause on CT -Suspect pre-renal -Presented with a creatinine of 2.30, slowly improving. #Obstructive sleep apnea of adult: -CPAP HS - although he notes not using his home machine for years #Hypertension: -Hold spironolactone, irbesartan until clinically stable. -Monitor on telemetry #H/O splenectomy VTE Prophylaxis - heparin 5000 units SQ q8h Diet -low-fat, type 2 diabetes Disposition -PCU/tele Dispo: PT OT recommending short-term rehab. Total Time Total Time Spent Total Time Spent (In Minutes): <30 Discharge Plan Discharge Items Patient Disposition: Home - Self-Care Reason For Visit: SEVERE PANCREATITIS,DKA Discharge Diagnosis: Severe pancreatitis, DKA Activity: Resume your previous activity Non-emergency contact: Primary Care Provider Call non-emergency contact if: you have any medication questions, your pain is concerning for you and your temperature is above 101.5 Follow-up/Referrals: Jose David Davenport DO [Primary Care Provider] - 06/13/24 11:00 am (Hospital follow up scheduled with Jessica Mora on 06/13/24 at 11:00) Diet: Carb Consistent or DM2 Addtl Attending Provider Instructions: pancreatitis - -You were admitted for pancreatitis. This means that your pancreas (and digestive organ that sits in the top of your stomach area) was very inflamed. This creates a lot of painbut fortunately gets better fairly quickly most of the timewhich has been the case with you. Most likely, your pancreatitis was actually caused to be because your sugars were so excessively highthis can essentially create sludge in the blood flow as it is passing through which can create inflammation, and allow things to spiral out of control. While there is nothing specific you need to do as it relates to your pancreatitis moving forward (outside of not drinking any alcoholwhich I do not believe you do anyway) we definitely need to help you get your sugars under better control to keep this from happening again. As we discussed, there is a small chance that some of your other sugar medicines could have caused the pancreatitis as a side effectand although I doubt it, this would be hard to disapprovewhich is why we will be moving forward with insulin (as well as simply because of how uncontrolled your sugars were) Uncontrolled diabetes - long-term, the main thing that we worry about with uncontrolled diabetes is that "high sugars clog arteries"the higher you run, and the longer you run high, the more you clog off blood vessels you cannot get back - short-term, your sugars were in such uncontrolled disarray, that they were the most likely culprit for why you had pancreatitis to begin with - both are reasons that require much better control, or you risk really bad short term consequences (repeated bouts of pancreatitis), and long-term consequences (heart attacks and strokes from clogged arteries from sugar) - your A1c was 15.4%this is a marker of what your sugars have been running over the last 3 months (since red blood cells lymph for about 90 days, and A1c is essentially how much your red blood cell "looks like a glazed doughnut")typically we start to worry about high sugars clogging arteries with an A1c above 7%, it is hard to put an exact number on risk for pancreatitis, but somewhere above 1213 would be a reasonable line where that would be more and more concerning. - Long-term, as we discussed, most of type 2 diabetes is caused by our eating and exercise habitsso if you get away from simple carbohydrates (breads, potatoes, sugars, sweets, sugary drinks, starches, etc.) and instead eat predominantly fruits, vegetables, and lean sources of protein; and additionally if you start doing 20-30 minutes of light cardiovascular exercise every day (such as taking a walk or pedaling a bike) it is extremely likely that you can at least improve your diabetes (having better control on less medications) and I have definitely seen people put their diabetes "into remission" by lifestyle changes like this - given that lifestyle change is often slow to implement, and you are in fairly imminent danger from your massively uncontrolled sugars right now, we will need to use insulin to keep things in line. As we discussed, your pancreas is probably making excessive amounts of insulin ("red lining the amount of insulin it could make") but your muscles simply want even more than that. To "fill the gap" of how much insulin your muscles want compared to how much your pancreas can make, we will need to give you insulin shots. Because of the insulin shots do not adjust based on what you are eating, We will need to send you out on 2 different types of insulinlong-acting and short acting long-acting (Lantus, glargine)this will be what we call a "basal insulin"this will cover your metabolism when you are in a fasting state/whenever it has been a while between mealsit generally kicks in slowly 2 hours after you have injected it, never really reaches a peak and activity, and slowly wears off by 18-24 hours. We will have you taking 90 units of that once a day short acting (NovoLog)this is what we call a " bolus insulin"this will be what you take when you eat because the Lantus will not adjust based on what you have eaten. Right now we will have you take 30 units of short acting insulin at each major meal. Over time, ideally, we will be able to start to teach you to learn to adjust the insulin based on the carbohydrates you take in. Right now, however, given this is all a big change we will send you out on a "static" dose at each meal. The short acting insulin kicks in about 15 minutes after you take it, reaches a peak and activity about 90 minutes after you take it, and is gone 3-4 hours after you take it. Because of this, it can be really helpful to check a sugar about 2 hours after eating/after taking the short acting insulin so you can "grade your work"truly normal would be seeing a sugar between 373802 two hours later, and if you were to have a low sugar, it would probably be from taking 30 units of insulin and eating far less carbohydrates than you normally dobut we would expect to see that low sugar somewhere around 1-2 hours after eating/after giving insulin, so it would happen in a predictable way. Dr. Davenport will code you from there on how to learn to start to adjust based on what you are eatingbut it could be helpful to write down what you have eaten, how much insulin you took, and what your sugar was 2 hours later so that he can c ontinue to guide you. You will start to see that certain foods spike your sugar higher. These will be foods that would require more insulin to "cover" if you start to learn to adjust the insulin based on what you are eating. These are also foods that it would be palacios to learn to avoid given that they would be ones that spike your sugar/clogged arteries/put you at risk for pancreatitis/making more diabetic. To do: Take 90 units of Lantus insulin in the morning take 30 units of NovoLog insulin at each major meal check at least a fasting sugar in the morning, as well as sugars about 2 hours after each meal (write everything down including what you ate) follow with Dr. Davenport closely and frequently for ongoing coaching/guidance on getting your sugar under better control learn to eat less simple/starchy/sugary carbohydrates and start to exercise 20- 30 minutes every day to try to fix your diabetes Pending Studies at Discharge: No Stand-Alone Forms: My [facility] SwitchNote, Smoking Cessation Medications and DC Order Prescriptions: New insulin glargine [Lantus Solostar U-100 Insulin] 100 unit/mL (3 mL) insulin pen 90 unit subcut DAILY Qty: 15 3RF Rx Instructions: please also dispense needles for the pens insulin aspart U-100 [Novolog FlexPen U-100 Insulin] 100 unit/mL (3 mL) insulin pen 30 unit subcut AC Qty: 15 0RF Rx Instructions: please also dispense needles for pens, thanks Continued betamethasone dipropionate 0.05 % cream 1 applic topical BID PRN (Reason: Rash) Qty: 60 0RF diltiazem HCl 420 mg capsule,extended release 24hr 420 mg PO QPM Qty: 90 3RF irbesartan 300 mg tablet 300 mg PO DAILY Qty: 90 3RF spironolactone 50 mg tablet 50 mg PO DAILY Qty: 90 2RF (DME) CPAP Supplies [facility] [place] See Dose Instructions .ROUTE .MEDSUPPLY Qty: 1 0RF Dose Instruction: As directed Rx Instructions: nasal mask fexofenadine 180 mg tablet 180 mg PO HS [id number] acid-lutein [Adult Multivitamin (w-lutein)] 200-137.5 mcg tablet,chewable 1 tab PO DAILY (DME) lancets [OneTouch Delica Lancets] 33 gauge [facility] [place] Dose Instructions .ROUTE .MEDSUPPLY Qty: 100 Rx Instructions: As directed - twice daily & as needed (DME) OneTouch Ultra Blue Test Strip strip See Dose Instructions .ROUTE .MEDSUPPLY Qty: 10 Rx Instructions: As directed - test twice daily and as needed (DME) [place] Hose Misc See Rx Instructions .MEDSUPPLY Qty: 1 0RF Rx Instructions: As directed aspirin [Siri Low Dose Aspirin] 81 mg tablet,delayed release (DR/EC) 81 mg PO DAILY Rx Instructions: Take to prevent blood clots. amoxicillin 500 mg capsule 2,000 mg PO DIRECTED PRN (Reason: PRIOR TO DENTAL PROCEDURES) Rx Instructions: Take 4 capsules prior to dental appointment acetaminophen [Tylenol Extra Strength] 500 mg tablet 1,000 mg PO TID PRN (Reason: Pain) Rx Instructions: Take 3 times per day to lessen pain. Discontinued Trulicity 3 mg/0.5 mL pen injector 3 mg subcut WK Rx Instructions: Tuesdays Discharge Orders: Discharge Order (Routine); Ordered 06/10/24 Ordered By: Ramon Mejia Admission Data Admit Date/Time: 06/05/24 17:16 Attending Provider: Ramon Mejia Admit Provider: Gerhard Orozco Primary Care Provider: Jose David Davenport Other Providers: Gerhard Orozco; Danie Brooks Other Interventions: Discharge Summary Assessment (RN) Last Done: 06/10/24 16:25 Supervising Physician Co-Signing Physician Notes I personally examined the patient and verified all cunningham points of history and exam, discussed case, and agree with decision making with Dr Lowe feeling better overall. Eating with no problem. No significant abdominal pain. Vitals noted, in general he is awake and alert pleasant no distress. HEENT normocephalic atraumatic mucous membranes moist. Breathing unlabored no accessory muscle use good effort. Skin without rashes pallor or icterus. Pancreatitis resolved. Could possibly be secondary GLP1 agonist, but I also harbor pretty good suspicion that it is due to markedly uncontrolled diabetes given his A1c of 15.4. Safe/stable for home hyperglycemic dehydrationresolved PHIL - overall improved. Periodic outpatient labs DM - uncontrolled. A1c 15. Diabetes education. discussed insulin, also discussed lifestyle change. discussed insulin management in detail today and gave patient/ instructions in writing as well. Will need close and ongoing PCP follow-up in this regard. Discussed lifestyle change could make a marked improvement in his diabetes control with less need for medicines/ but right now a fairly complicated regimen is essentially the least we can do without allowing the disease process to cause significant problems unchecked. Discussed the potential causative role of his uncontrolled diabetes and his acute pancreatitis, as well as long-term concerns for vascular disease including [place]/stroke Sleep apnea - but doesn't use cpap at home. ongoing follow up and encouragement in this regard feels safe to go home, pt and (especially) express good understanding Resident Activity Tracking Resident Involvement: Resident Care Provided Care Provided: Adult Hospital Medicine
--- NOTE | 2024-06-10 18:01 | Billing Data ---
Date of Service June 10, 2024 Coding Level of Care Code 51968 IN/OBS DISCH 30 MIN/LESS
--- NOTE | 2024-06-11 13:40 | Coding Query ---
SEPSIS To promote full compliance with coding requirements relating to patient care, physician participation is requested in all cases of technical programs manager uncertainty. Please assist us with the question(s) below: In responding to this query, please exercise your independent professional judgement. The fact that a question is asked does not imply that any particular answer is desired or expected. We appreciate your clarification on this issue. Throughout the medical record, you have clearly documented a localized infection and your patient has clinical evidence of a generalized sepsis or severe sepsis. The term urosepsis is a nonspecific entity and is coded as an UTI. If the patient has sepsis, severe sepsis, from an urinary source or some other source, please clarify in your response below. The medical record reflects the following clinical findings: (With dates as appropriate) (Body temperature of >38.3 C(101 F) or <36 C(96.8F), pulse >90/minute, respirations >20/minute, WBC count >12,000 or <4,000, altered mental status, significant edema or positive fluid balance, hyperglycemia without diabetes, hypotension, metabolic acidosis (elev. lactate level, anion gap or reduced blood pH), shock, positive blood culture (enter organism) ____ ()Bacteremia (Nonspecific laboratory finding of bacteria in the blood) Specify Organism () Present on Admission ()x Not present on admission () Unable to clinically determine () Septicemia (Systemic disease associated with the presence of pathogenic microorganisms in the blood): Specify Organism () Present on Admission (x) Not present on admission () Unable to clinically determine () Sepsis Specify Organism Specify Associated Condition/Diagnosis () Present on Admission x Not present on admission () Unable to clinically determine () Severe Sepsis (Sepsis associated with acute organ dysfunction) Specify Organism Specify Associated Condition/Diagnosis () Present on Admission (x) Not present on admission () Unable to clinically determine () Septic Shock (Severe sepsis with acute circulatory failure, unexplained by other causes) () Present on Admission (x) Not present on admission () Unable to clinically determine (x) Other, patient has: with hindsight appears SIRS was related to pancreatitis MTDD
== END 2024-06-10 18:15 | disposition home or self-care (01) | DRG 438 ==
LOC: ED 13:54 → EDINP 17:16 → SUATTDRO 17:16 → 1E 17:23 → 2S 06-06 18:35

== ENCOUNTER 2024-07-02 12:06 | Inpatient (IN) ==
--- NOTE | 2024-07-02 13:01 | Emergency Department Note ---
Impression & Plan Calculus of proximal right ureter, Urinary tract infection ED Provider Note CHIEF COMPLAINT: Kidney infection HISTORY OF PRESENTING ILLNESS: This 68-year-old male patient presents to the emergency department with his for evaluation of a possible kidney infection. The patient saw Dr. Currie of urology after having a CT scan performed yesterday that showed an "infection" per patient. The patient states that he was told to come to the ER for a possible stone seen on the CT scan with need for stent. The patient is having pain in the right flank. He rates his discomfort as 5/10. CT scan of the abdomen pelvis without contrast performed on 07/01/2024 shows a 1.1 cm right ureteropelvic junction calculus which results in mild hydronephrosis with perinephritic stranding. There is right nephrolithiasis. Peripancreatic stranding and fluid which has improved since prior exam. This favors resolving pancreatitis. A follow-up CT scan of the abdomen and pelvis in 3 months to ensure complete resolution is recommended. No peripancreatic fluid collection. No bowel obstruction. There is cholelithiasis. Upon review of the urology office visit note from today, the patient was diagnosed with the proximal right ureteral calculus from the CT scan that was likely obstructing due to the elevated kidney functions. The patient had been feeling worse over the past week and he was unable to tolerate oral intake. They recommended the patient come to the ER for laboratory studies and possible admission for IV antibiotics versus cystoscopy with stent placement. The patient states that the right flank pain started 3 weeks ago. He feels like he has been having intermittent fevers, but has not checked his temp. Having a lot of nausea and decreased appetite. Was vomiting initially, but no vomiting in the past week. Denies chest pain or SOB. He has not been having as many BMs as normal since the symptoms started. He has also had decreased urine output, but denies any other urinary symptoms. No previous history of stent placement. He is not on any blood thinners. The patient was also discharged from the hospital at the end of May after a bout of pancreatitis. The patient had CT scan evidence of pancreatitis as well as elevated lipase and elevated triglycerides. His GLP-1 was discontinued and he was started on IV insulin. The patient had no abdominal pain. The patient was also diagnosed with a probable UTI and was started on ceftriaxone. The patient had recently been on Augmentin and Zithromax for a lower respiratory tract infection. REVIEW OF SYSTEMS: See HPI for pertinent positives and pertinent negatives. ALLERGIES: Aminoglycosides, Bacitracin, Codeine, Neomycin, Polymyxin B, Cat Dander MEDICATIONS: See below PAST MEDICAL HISTORY: See below PHYSICAL EXAM: VITALS: Vitals are noted on the nurse's note and reviewed by myself. GENERAL: Non toxic, in no acute distress, non-diaphoretic. SKIN: Capillary refill <2 sec. EYES: PERRLA. EOMI. Conjunctivae without injection, sclerae without icterus. NOSE: Patent without discharge. MOUTH: Mucous membranes moist. Uvula midline. Airway patent. NECK: Supple without nuchal rigidity. HEART: Regular rate and rhythm without murmurs gallops or rubs. LUNGS: Clear to auscultation bilaterally without wheezes, rales or rhonchi. No retractions or accessory muscle use. ABDOMEN: Positive bowel sounds x 4. Normal tympanic percussion. Soft, mild diffuse tenderness to palpation but appeared worse on the right side in the right flank. No masses or hepatosplenomegaly. Farrar sign negative. No CVA tenderness. No guarding, rigidity, or rebound tenderness. No focal RLQ or LLQ tenderness. MUSCULOSKELETAL: No gross musculoskeletal defects. NEURO: Patient was alert and oriented. No focal neurological deficits. DIFFERENTIAL DIAGNOSIS: Differential diagnosis includes hepatitis, pancreatitis, cholecystitis, cholelithiasis, appendicitis, kidney stone, pyelonephritis, UTI, gastritis, gastroenteritis, mesenteric adenitis, obstruction, constipation, hernia, abdominal abscess, perforation, diverticulitis, IBD, ischemic colitis, abdominal aortic aneurysm, testicular torsion, prostatitis, or others. ED COURSE AND MEDICAL DECISION MAKING: HISTORY FROM INDEPENDENT HISTORIAN: Additional history obtained from the patient's MEDICATIONS GIVEN: Tylenol 1000 mg IV, Zofran 4 mg IV, and 1 L normal saline solution bolus. MONITOR: Continuous cardiac exercise specialist: Order was placed for continuous cardiac exercise specialist. Patient was placed on the cardiac exercise specialist and continuous pulse ox. Patient was noted to be in normal sinus rhythm at an initial rate of 70 bpm per my interpretation. INTERPRETATION OF LABS: I interpreted the labs with full lab results as below in the lab section of this note. Laboratory results pertinent to the emergent complaint are discussed in the MDM section below. The patient was advised to follow up with their PCP and/or specialist(s) for further outpatient monitoring and management of any abnormal results. EXTERNAL RECORDS REVIEWED: I reviewed the patient's outpatient urology visit from earlier today as well as the patient's outpatient CT scan from 07/01/2024. I also reviewed the patient's admission from May for his pancreatitis. CONSULTATIONS: Tayler SESAY of urology. On-call hospitalist. MDM SUMMARY: The patient was seen during a time of extreme volume and extreme acuity. Nursing triage protocols were initiated with IV lock, labs, and/or imaging studies conducted by protocol in the triage area. The patient was examined by myself once they were taken back to an exam room. The patient was admitted the end of May for a bout of pancreatitis and UTI following a lower respiratory tract infection that was previously treated with Augmentin and Zithromax. He was treated with IV fluids, his GLP-1 was discontinued and he was started on IV insulin, and he was treated with IV Rocephin. The patient then started with right flank pain [address] scan of the abdomen pelvis on 07/01/2024 showed a 1.1 cm right ureteropelvic junction calculus with concerns for obstruction. The patient saw urology today who was concerned for possible infection and referred him to the ER for laboratory studies and possible admission for IV antibiotics prior to stent placement. The patient was afebrile in the ER and his vital signs were stable. The patient was given 1 L normal saline solution bolus, Tylenol 1000 mg IV, and Zofran 4 mg IV. White blood cell count elevated at 26.69. Hemoglobin stable at 10.2. Platelet count elevated at 705. CMP revealed sodium 131, potassium 3.3, creatinine 1.54, BUN 29, glucose 151, alk phos 150, ALT 59, and AST 64. Amylase and lipase were normal. Lactate normal at 1.4. Blood cultures were drawn and are pending. The patient was unable to give a urine sample while in the emergency department. I was waiting for nursing staff to draw the blood cultures and obtain the urinalysis prior to starting IV antibiotics. However, before this was done, urology had already presented to the emergency department and evaluated the patient as they were already aware of the patient. I spoke with Tayler SESAY of urology who stated that urology will order the IV antibiotics and take the patient to the OR for stent placement. Please refer to their dictation for further details. It was also recommended that the patient be admitted to medicine for further evaluation and treatment. I spoke with the on- call hospitalist who agreed to admit the patient for further evaluation and treatment. Please refer to their dictation for further details. I had a meaningful discussion about this patient with Dr. Webber who agrees with my assessment and the treatment plan. The patient's care was transferred in stable condition. DIAGNOSIS: Proximal right ureteral calculus with possible infection Past Med/Surg History Problem List (Updated 07/02/24 @ 22:11 by Gloria Monroy PA-C) Calculus of proximal right ureter (Acute) Abdominal pain Fever Diarrhea Urinary tract infection (Acute) Hypertriglyceridemia Viral upper respiratory infection Acute pancreatitis Diabetic ketoacidosis PHIL (acute kidney injury) Sepsis Lower respiratory infection (e.g., bronchitis, pneumonia, pneumonitis, pulmonitis) Hypertension Class 3 severe obesity with serious comorbidity and body mass index (BMI) of 40.0 to 44.9 in adult Petechiae or ecchymoses Type 2 diabetes mellitus with proteinuria Poor compliance Ventral hernia Nephrolithiasis Erectile dysfunction Microscopic hematuria Left knee DJD Proteinuria (Chronic) Hypercholesterolemia (Chronic) Obstructive sleep apnea of adult (Chronic) H/O splenectomy (Chronic) HTN (hypertension) (Chronic) Peptic ulcer disease (Chronic) Medical History History of rectal cancer Changing skin lesion Snoring Hemorrhoid Morbid obesity Encounter for pre-operative examination History of colon cancer 1996 - treated surgically Stomach ulcer Hx Sleep apnea CPAP (occasional use) Hyperlipidemia No meds Surgical History Status post total left knee replacement Status post right knee replacement History of appendectomy History of umbilical hernia repair History of rectal polypectomy History of arthroscopy of left shoulder History of arthroscopy of left knee History of repair of rotator cuff Left History of total knee replacement Right History of tonsillectomy History of appendectomy H/O splenectomy x2 s/p accident History of colonoscopy Colonoscopy (06/06/22): MAC at [facility] History of esophagogastroduodenoscopy (EGD) History of bowel resection 1996 Family History Brother Family history of diabetes mellitus Mother Family hx of colon cancer Father Prostate cancer Uncle Prostate cancer Social History Smoking Status: Former smoker Tobacco Type: Cigarettes Second Hand Exposure: Yes; Do You Dip or Chew Tobacco: Yes (1 can every 2-3 days, advised none DOS); Hx Alcohol Use: No Hx Substance Use: No Preferred Language: Tuvaluan Communication Ability: Effective Hearing Ability: Normal Substation Wireman Required: No Beliefs That Will Affect Care: None marital status: Current Living Situation: Spouse current occupational status: retired Feels Safe at Home: Yes Childhood Exposure to Second-Hand Smoke: Yes Diet: regular caffeine: No Dental Care, Regularly: Yes Physical Activity Frequency: Daily Seatbelt Use: always Sunscreen Use: Yes Assistive Devices: Cane Allergies Allergies Allergy/AdvReac Type Severity Reaction Status Date / Time Aminoglycosides Allergy Severe Localized Verified 07/02/24 11:10 swelling + rash bacitracin Allergy Severe Localized Verified 07/02/24 11:10 swelling + rash codeine Allergy Severe Flushing, Verified 07/02/24 11:10 hot flashes neomycin Allergy Severe Localized Verified 07/02/24 11:10 swelling + rash polymyxin B Allergy Severe Localized Verified 07/02/24 11:10 swelling + rash cat dander Allergy Intermediate Eye Verified 07/02/24 11:10 swelling, sneezing Home Meds Home Medications Medication Instructions Recorded Confirmed blood sugar diagnostic (OneTouch #10 ea 02/11/19 07/02/24 Ultra Blue Test Strip) fexofenadine 180 mg tablet 180 mg PO HS PRN Allergies 02/11/19 07/02/24 lancets 33 gauge (OneTouch Delica #100 ea 02/11/19 07/02/24 Lancets) acetaminophen 500 mg tablet 1,000 mg PO TID PRN Pain 11/10/22 07/02/24 (Tylenol Extra Strength) amoxicillin 500 mg capsule 2,000 mg PO DIRECTED PRN PRIOR 11/10/22 07/02/24 TO DENTAL PROCEDURES vxypqevqziyj-qmqe-fqjdc acid 200 1 tab PO DAILY 10/17/23 07/02/24 mcg-lutein 137.5 mcg chewable tablet (Adult Multivitamin (w-lutein)) Previous Rx's Medication Instructions Recorded CPAP Supplies #1 ea 01/23/19 betamethasone dipropionate 0.05 % 1 applic topical BID PRN Rash #60 05/19/22 topical cream grams [place] Hose #1 ea 11/20/22 insulin aspart U-100 100 unit/mL 30 unit (0.3 mL) subcut AC #15 mL 06/10/24 (3 mL) subcutaneous pen (Novolog FlexPen U-100 Insulin aspart) insulin glargine 100 unit/mL (3 90 unit (0.9 mL) subcut DAILY #15 06/10/24 mL) subcutaneous pen (Lantus mL Solostar U-100 Insulin) pen needle, diabetic 31 gauge x #100 ea 06/11/24 5/" (Comfort EZ Pen [place]) Results & Data (ED) Vital Signs Vital Signs - 24 hr 07/02/24 12:23 07/02/24 12:55 07/02/24 13:09 Temperature 36.8 C Temperature Source Temporal Artery Scan Pulse Rate 80 69 Pulse Rate [Apical] 64 Respiratory Rate 18 18 Respiratory Effort / Characteristics Non-Labored Spontaneous Non-Labored Respiratory Depth Normal Normal Respiratory Pattern Regular Blood Pressure 137/83 Blood Pressure [Right Arm] 120/81 Blood Pressure Mean 101 Blood Pressure Mean [Right Arm] 94 Pulse Oximetry 95 95 Oxygen Delivery Method Room Air Room Air Sepsis Recent Fever Within 48 Hours No Sepsis New/Unexplained Change in Mental Status N/A Sepsis Action Taken by Nursing No Action Required Laboratory Data 07/02/24 12:37 07/02/24 13:48 Lab Results 07/02/24 07/02/24 07/02/24 Range/Units 12:37 13:48 14:06 WBC 26.69 H (4.8-10.8) K/ul RBC 3.61 L (4.70-6.10) M/uL Hgb 10.2 L (14.0-18.0) g/dl Hct 30.7 L (42.0-52.0) % MCV 85.0 (80.0-100.0) fL MCH 28.3 (25.0-34.0) pg MCHC 33.2 (32.0-36.0) g/dL RDW Std Deviation 43.7 (36.4-46.3) fL RDW Coeff of Jimmie 14.2 (11.5-14.5) % Plt Count 705 H (130-400) K/uL MPV 11.3 (9.4-12.4) fL Immature Gran % (Auto) 4.7 % Neut % (Auto) 77.4 % Lymph % (Auto) 8.7 % Harper % (Auto) 5.1 % Eos % (Auto) 3.7 % Baso % (Auto) 0.4 % Neut # (Auto) 20.66 H (1.40-6.50) K/uL Lymph # (Auto) 2.33 (1.20-3.40) K/uL Harper # (Auto) 1.35 H (0.11-0.59) K/uL Eos # (Auto) 0.98 H (0.00-0.50) K/uL Baso # (Auto) 0.11 (0.00-0.20) K/uL Immature Gran # (Auto) 1.26 H (0.01-0.20) K/uL Toxic Granulation 1+ Toxic Vacuolation 1+ Platelet Estimate Increased H (Normal) Sodium 131 L (136-145) mmol/L Potassium TNP 3.3 L Chloride 102 (98-107) mmol/L Carbon Dioxide 22 (21-32) mmol/L Anion Gap 7 (3-11) BUN 29 H (6-23) mg/dl Creatinine 1.54 H (0.6-1.4) mg/dl Est Cr Clr Drug Dosing 55.9 ml/min eGFR 48.23 BUN/Creatinine Ratio 18.8 (10-20) Glucose 151 H (70-99(Fasting)) mg/dl Lactate 1.4 (0.4-2.0) mmol/L Calcium 8.1 L (8.6-10.3) mg/dl Total Bilirubin 0.6 (0.2-1.0) mg/dl AST TNP 64 H ALT 59 H (7-52) U/L Alkaline Phosphatase 150 H (34-104) U/L Total Protein 6.5 (6.0-8.3) gm/dl Albumin 2.7 L (3.4-5.0) gm/dl Globulin 3.8 (2.5-4.0) gm/dl Albumin/Globulin Ratio 0.7 L (0.9-2) Amylase 32 (25-115) U/L Lipase 41 (11-82) U/L Urine Color Dark Yellow Urine Appearance Clear (Clear) Urine pH 5.5 (4.5-7.5) Ur Specific [place] 1.018 (1.000-1.030) Urine Protein 2+ H (Negative) Urine Glucose (UA) Negative (Negative) Urine Ketones Trace H (Negative) Urine Blood 2+ H (Negative) Urine Nitrite Negative (Negative) Urine Bilirubin Negative (Negative) Urine Urobilinogen Negative (Negative) Ur Leukocyte Esterase 1+ H (Negative) Urine WBC (Auto) 11-20 H (0-5) /hpf Urine RBC (Auto) 6-10 H (0-2) /hpf U Hyaline Cast (Auto) 3-5 H (0-2) /lpf U Epithel Cells (Auto) 0-2 (0-2) /hpf Urine Bacteria (Auto) None Seen (None Seen) Administered Medications Diatrizoate Meglumine (Diatrizoate Meglumine 30% 100ml Vial) 15 ml INSTIL UD HAYDER Stop: 07/06/24 15:29 Last Admin: 07/02/24 15:05 Dose: 15 ml Documented By: [id number] Heparin Sodium (Porcine) (Heparin Sod 5,000 Unit/0.5 Ml Vial) 5,000 units SQ Q12 HAYDER Stop: 08/01/24 20:59 Last Admin: 07/02/24 20:36 Dose: Not Given Documented By: EDA Lactated Ringer's (Lr) 1,000 mls @ 15 mls/hr IV .Q24H HAYDER Stop: 07/03/24 13:59 Last Admin: 07/02/24 14:30 Dose: Not Given Documented By: PA Sodium Chloride (Nss) 1,000 mls @ 125 mls/hr IV .Q8H HAYDRE Stop: 07/03/24 03:59 Last Admin: 07/02/24 20:36 Dose: 125 mls/hr Documented By: EDA Insulin Aspart (Insulin Aspart Per Unit Charge) 0 units SC ACHS HAYDER Stop: 08/01/24 20:59 Last Admin: 07/02/24 20:36 Dose: Not Given Documented By: EDA Discontinued Medications Acetaminophen (Ofirmev) 1,000 mg in 100 mls @ 400 mls/hr IV NOW STA Stop: 07/02/24 13:25 Last Infusion: 07/02/24 13:47 Dose: Infused Documented By: Admin: 07/02/24 13:28 Dose: 400 mls/hr Documented By: HB Sodium Chloride (Nss) 1,000 mls @ 999 mls/hr IV .Q1H1M ONE Stop: 07/02/24 14:11 Last Infusion: 07/02/24 16:35 Dose: Infused Documented By: Admin: 07/02/24 13:27 Dose: 999 mls/hr Documented By: HB Cefazolin Sodium (Ancef 2000mg) 2,000 mg in 15 mls @ 3.75 mls/min IV PREOP HAYDER; Protocol Stop: 07/02/24 20:00 Last Admin: 07/02/24 14:48 Dose: 3.75 mls/min Documented By: [id number] Ceftriaxone Sodium (Rocephin) 2,000 mg in 50 mls @ 100 mls/hr IV NOW STA Stop: 07/02/24 14:29 Last Admin: 07/02/24 15:23 Dose: Not Given Documented By: [id number] Ondansetron HCl (Ondansetron Inj 2 Mg/Ml 2 Ml Vial) 4 mg IV NOW STA Stop: 07/02/24 13:12 Last Admin: 07/02/24 13:28 Dose: 4 mg Documented By: HB Potassium Chloride (Potassium Chloride Crtab 20 Meq Tabcr) 40 meq PO NOW STA Stop: 07/02/24 19:41 Last Admin: 07/02/24 20:36 Dose: 40 meq Documented By: AAI Imaging Data Radiologist's Impression: Retrograde Pyelogram 07/02/24 00:00 FL retrograde includes kub CLINICAL HISTORY: CYSTO STENT COMPARISON STUDY: CT of the abdomen and pelvis July 01, 2024. FLUOROSCOPY TIME: 12 seconds. Ka,r: 6.42 mGy FLUOROSCOPIC IMAGES: 3 FINDINGS: Fluoroscopy was provided during right retrograde pyelogram and right ureteral stent placement. IMPRESSION: Fluoroscopy provided during right retrograde pyelogram and right ureteral stent placement. ACT 112: Negative or not required by law. Electronically signed by: Anshu Luong M.D. 07/02/2024 4:12 PM Discharge Plan Visit Data Chief Complaint: Flank Pain Stated Complaint: INFECTION OF KIDNEY, STINT ED Provider: Jean Carlos Webber ED Midlevel Provider: Gloria Monroy Discharge Problem: Calculus of proximal right ureter, Urinary tract infection Patient Disposition: Admitted As Inpatient Condition: Good Discharge Instructions Interventions: ED Discharge Assessment Last Done: 07/02/24 14:00
[2024-07-02] MEDS: SODIUM CHLORIDE 0.9% 1,000 ML IV ONE (13:27)
[2024-07-02] MEDS: ONDANSETRON INJ 2 MG/ML 2 ML VIAL IV STA (13:28)
[2024-07-02] MEDS: ACETAMINOPHEN 1,000 MG/100 ML VIAL IV STA (13:28)
[2024-07-02 13:34] LABS: Alanine Aminotransferase 59 U/L (7-52); Albumin Globulin Ratio 0.7 (0.9-2); Albumin Level 2.7 gm/dl (3.4-5.0); Alkaline Phosphatase 150 U/L (34-104); Anion Gap 7 (3-11); BUN Creatinine Ratio 18.8 (10-20); Bilirubin,Total 0.6 mg/dl (0.2-1.0); Blood Urea Nitrogen 29 mg/dl (6-23); Calcium 8.1 mg/dl (8.6-10.3); Carbon Dioxide 22 mmol/L (21-32); Chloride 102 mmol/L (98-107); Creatinine Clr Calc Pharmacy 55.9 ml/min; Globulin 3.8 gm/dl (2.5-4.0); Glucose 151 mg/dl (70-99(Fasting)); Sodium 131 mmol/L (136-145); Total Protein 6.5 gm/dl (6.0-8.3)
[2024-07-02 13:41] LABS: Basophils # (auto) 0.11 K/uL (0.00-0.20); Basophils % (auto) 0.4 %; Eosinophils # (auto) 0.98 K/uL (0.00-0.50); Eosinophils % (auto) 3.7 %; Hematocrit (blood only) 30.7 % (42.0-52.0); Hemoglobin 10.2 g/dl (14.0-18.0); Immature Granulocytes # (auto) 1.26 K/uL (0.01-0.20); Immature Granulocytes % (auto) 4.7 %; Lymphocytes # (auto) 2.33 K/uL (1.20-3.40); Lymphocytes % (auto) 8.7 %; Mean Corpuscular Hemoglobin 28.3 pg (25.0-34.0); Mean Corpuscular Hgb Conc 33.2 g/dL (32.0-36.0); Mean Platelet Volume 11.3 fL (9.4-12.4); Monocytes # (auto) 1.35 K/uL (0.11-0.59); Monocytes % (auto) 5.1 %; Neutrophils # (auto) 20.66 K/uL (1.40-6.50); Neutrophils % (auto) 77.4 %; Platelet Count 705 K/uL (130-400); Platelet Estimate Increased (Normal); RDW Coefficient of Variation 14.2 % (11.5-14.5); RDW Standard Deviation 43.7 fL (36.4-46.3); Red Blood Count 3.61 M/uL (4.70-6.10); Toxic Granulation 1+; Toxic Vacuolation 1+; White Blood Count 26.69 K/ul (4.8-10.8)
--- NOTE | 2024-07-02 13:42 | Urology Consultation ---
Date of Consultation July 02, 2024 Assessment & Plan (1) Calculus of proximal right ureter: This is a 68-year-old male who was seen in the outpatient urology clinic today for an obstructing 1.1 cm right UPJ stone. He was referred to the emergency department for further evaluation due to concern for fever and ill feelings in the setting of an obstructing stone. Patient afebrile, hemodynamically stable Labs reviewedcreatinine 1.54, WBC increased to 26.69, hemoglobin 10.2 No urinalysis collected/pending at this time Recommend collect UA and cultures Discussed recommendation for cystoscopy and right ureteral stent placement given findings of an obstructing stone and concern for infection, leukocytosis Keep n.p.o. for procedure Preoperative antibiotic will be given Risk and benefits of procedure to be reviewed with patient by Dr. Torres Recommend admit to the hospital medicine service Continue with broad-spectrum antibiotics and follow cultures Supervising Physician Co-Signing Physician Notes Plan for cystoscopy, right retrograde pyelogram and right ureteral stent. Consent obtained. Patient marked. Ancef to the OR. History of Present Illness History of Present Illness This is a 68-year-old male who follows with urology for nephrolithiasis. Patient had an outpatient CT abdomen pelvis ordered by his PCP to evaluate for abdominal pain. CT abdomen pelvis on 07/01/2024 demonstrated a 1.1 cm right UPJ calculus resulting in mild hydronephrosis with perinephric stranding, right nephrolithiasis. He was seen today by urology, Dr. Currie, as an outpatient and was referred to the emergency department due to obstructing stone, chills, and ill feelings over the past week. On arrival to ED, he was afebrile and hemodynamically stable. Lab work obtained and pending. No UA pending at this time. Patient seen and examined in the emergency department. in room. Patient is awake and resting in litter. Reports some ongoing abdominal/flank pain. Voiding spontaneously. No dysuria or hematuria. Reports intermittent chills at home. Has not measured temperature at home. No nausea or vomiting at present. Patient had coffee this morning at 7 am. Allergies Allergy/AdvReac Type Severity Reaction Status Date / Time Aminoglycosides Allergy Severe Localized Verified 07/02/24 11:10 swelling + rash bacitracin Allergy Severe Localized Verified 07/02/24 11:10 swelling + rash codeine Allergy Severe Flushing, Verified 07/02/24 11:10 hot flashes neomycin Allergy Severe Localized Verified 07/02/24 11:10 swelling + rash polymyxin B Allergy Severe Localized Verified 07/02/24 11:10 swelling + rash cat dander Allergy Intermediate Eye Verified 07/02/24 11:10 swelling, sneezing Home Medications Medication Instructions Recorded Confirmed Type CPAP Supplies #1 ea 01/23/19 07/02/24 Rx blood sugar diagnostic (OneTouch #10 ea 02/11/19 07/02/24 History Ultra Blue Test Strip) fexofenadine 180 mg tablet 180 mg PO HS 02/11/19 07/02/24 History lancets 33 gauge (WomenCentricTouch Delica #100 ea 02/11/19 07/02/24 History Lancets) betamethasone dipropionate 0.05 % 1 applic topical BID PRN Rash #60 05/19/22 07/02/24 Rx topical cream grams acetaminophen 500 mg tablet 1,000 mg PO TID PRN Pain 11/10/22 07/02/24 History (Tylenol Extra Strength) amoxicillin 500 mg capsule 2,000 mg PO DIRECTED PRN PRIOR 11/10/22 07/02/24 History TO DENTAL PROCEDURES [place] Hose #1 ea 11/20/22 07/02/24 Rx diltiazem HCl 420 mg capsule,24 420 mg PO QPM #90 caps 08/14/23 07/02/24 Rx hr,extended release hjnixmaqxlpi-msyh-rgxfz acid 200 1 tab PO DAILY 10/17/23 07/02/24 History mcg-lutein 137.5 mcg chewable tablet (Adult Multivitamin (w-lutein)) aspirin 81 mg tablet,delayed 81 mg PO DAILY 05/05/24 07/02/24 History release (Siri Low Dose Aspirin) irbesartan 300 mg tablet 300 mg PO DAILY #90 tabs 05/16/24 07/02/24 Rx spironolactone 50 mg tablet 50 mg PO DAILY #90 tabs 05/16/24 07/02/24 Rx insulin aspart U-100 100 unit/mL 30 unit (0.3 mL) subcut AC #15 mL 06/10/24 07/02/24 Rx (3 mL) subcutaneous pen (Novolog FlexPen U-100 Insulin aspart) insulin glargine 100 unit/mL (3 90 unit (0.9 mL) subcut DAILY #15 06/10/24 07/02/24 Rx mL) subcutaneous pen (Lantus mL Solostar U-100 Insulin) pen needle, diabetic 31 gauge x #100 ea 06/11/24 07/02/24 Rx 5/16" (Comfort EZ Pen [place]) Patient History Medical History History of rectal cancer Changing skin lesion Snoring Hemorrhoid Morbid obesity Encounter for pre-operative examination History of colon cancer 1996 - treated surgically Stomach ulcer Hx Sleep apnea CPAP (occasional use) Hyperlipidemia No meds Surgical History Status post total left knee replacement Status post right knee replacement History of appendectomy History of umbilical hernia repair History of rectal polypectomy History of arthroscopy of left shoulder History of arthroscopy of left knee History of repair of rotator cuff Left History of total knee replacement Right History of tonsillectomy History of appendectomy H/O splenectomy x2 s/p accident History of colonoscopy Colonoscopy (06/06/22): MAC at [facility] History of esophagogastroduodenoscopy (EGD) History of bowel resection 1996 Family History Brother Family history of diabetes mellitus Mother Family hx of colon cancer Father Prostate cancer Uncle Prostate cancer Social History Smoking Status: Never smoker Tobacco Type: Smokeless Tobacco (Dip or Chew) Second Hand Exposure: Yes; Do You Dip or Chew Tobacco: Yes (1 can every 2-3 days, advised none DOS); Hx Alcohol Use: Yes Alcohol type: beer Alcohol Intake Frequency: Monthly or Less Alcohol Intake Frequency Comment: 6-8 beers maybe 4-5 times a year Hx Substance Use: No Preferred Language: Vincentian Communication Ability: Effective Hearing Ability: Normal Emergency Management Director Required: No Beliefs That Will Affect Care: None marital status: Current Living Situation: Alone current occupational status: retired Feels Safe at Home: Yes Childhood Exposure to Second-Hand Smoke: Yes Diet: regular caffeine: No Dental Care, Regularly: Yes Physical Activity Frequency: Daily Seatbelt Use: always Sunscreen Use: Yes Assistive Devices: CPAP Review of Systems Review of Systems: All systems reviewed & are unremarkable except as noted in HPI & below Physical Exam Constitutional: + obese; no acute distress Respiratory: normal respiratory effort; no respiratory distress and no labored breathing Gastrointestinal (Abdomen): Inspection/Auscultation: abdomen normal to inspection Musculoskeletal: Head/Neck/Chest: normocephalic Neurologic: moves all extremities and awake Psychiatric: Orientation: alert and oriented x 3 Results & Data Vital Signs (Past 12 Hours) Vital Signs Temp Pulse Pulse Resp BP BP Pulse Ox 07/02/24 13:09 69 07/02/24 12:55 64 18 120/81 95 07/02/24 12:23 36.8 C 80 18 137/83 95 O2 Del Method 07/02/24 13:09 07/02/24 12:55 Room Air 07/02/24 12:23 Room Air PG Care Time/CCT Total # of Minutes Spent Total Time Spent with Patient: Total time spent is greater than 50% in coordination of care (as documented) at patient's floor/unit and/or counseling patient: Coding Level of Care Code 73136 INT INP/OBS CARE 2/55MIN Diagnoses Calculus of proximal right ureter N20.1
--- NOTE | 2024-07-02 13:53 | Anesthesiology Consultation ---
Date of Service July 02, 2024 Assessment & Plan Chart Review Chart Review: Acceptable Risk for Surgery and Patient NOT seen in Pre Admission Testing Consults Requested none ASA [id number] Proposed Anesthesia Anesthesia Type: MAC History Surgery Operation Date: 07/02/24 10:00 Proposed Procedures p Cystoscopy, Right Ureteral Stent Placement - Wes Torres MD Height/Weight Height: 5 ft 10 in Weight: 111.8 kg Allergies Allergy/AdvReac Type Severity Reaction Status Date / Time Aminoglycosides Allergy Severe Localized Verified 07/02/24 11:10 swelling + rash bacitracin Allergy Severe Localized Verified 07/02/24 11:10 swelling + rash codeine Allergy Severe Flushing, Verified 07/02/24 11:10 hot flashes neomycin Allergy Severe Localized Verified 07/02/24 11:10 swelling + rash polymyxin B Allergy Severe Localized Verified 07/02/24 11:10 swelling + rash cat dander Allergy Intermediate Eye Verified 07/02/24 11:10 swelling, sneezing Medications Home Medications Medication Instructions Recorded Confirmed Last Taken CPAP Supplies #1 ea 01/23/19 07/02/24 Unknown blood sugar diagnostic (OneTouch #10 ea 02/11/19 07/02/24 Unknown Ultra Blue Test Strip) fexofenadine 180 mg tablet 180 mg PO HS 02/11/19 07/02/24 06/01/24 lancets 33 gauge (OneTouch Delica #100 ea 02/11/19 07/02/24 Unknown Lancets) betamethasone dipropionate 0.05 % 1 applic topical BID PRN Rash #60 05/19/22 07/02/24 10/30/22 topical cream grams acetaminophen 500 mg tablet 1,000 mg PO TID PRN Pain 11/10/22 07/02/24 Unknown (Tylenol Extra Strength) amoxicillin 500 mg capsule 2,000 mg PO DIRECTED PRN PRIOR 11/10/22 07/02/24 Unknown TO DENTAL PROCEDURES [place] Hose #1 ea 11/20/22 07/02/24 Unknown diltiazem HCl 420 mg capsule,24 420 mg PO QPM #90 caps 08/14/23 07/02/24 06/01/24 hr,extended release ofqcrbaoulkl-glgc-ngtse acid 200 1 tab PO DAILY 10/17/23 07/02/24 06/01/24 mcg-lutein 137.5 mcg chewable tablet (Adult Multivitamin (w-lutein)) aspirin 81 mg tablet,delayed 81 mg PO DAILY 05/05/24 07/02/24 06/01/24 release (Siri Low Dose Aspirin) irbesartan 300 mg tablet 300 mg PO DAILY #90 tabs 05/16/24 07/02/24 06/01/24 spironolactone 50 mg tablet 50 mg PO DAILY #90 tabs 05/16/24 07/02/24 06/01/24 insulin aspart U-100 100 unit/mL 30 unit (0.3 mL) subcut AC #15 mL 06/10/24 07/02/24 Unknown (3 mL) subcutaneous pen (Novolog FlexPen U-100 Insulin aspart) insulin glargine 100 unit/mL (3 90 unit (0.9 mL) subcut DAILY #15 06/10/24 07/02/24 Unknown mL) subcutaneous pen (Lantus mL Solostar U-100 Insulin) pen needle, diabetic 31 gauge x #100 ea 06/11/24 07/02/24 Unknown 516" (Comfort EZ Pen [place]) Active Medications Generic Name Dose Route Start Last Admin Trade Name Freq PRN Reason Stop Dose Admin Sodium Chloride 1,000 mls @ 999 mls/hr 07/02/24 13:11 07/02/24 13:27 Nss IV 07/02/24 14:11 999 mls/hr .Q1H1M ONE Administration Past Medical History Medical History History of rectal cancer Changing skin lesion Snoring Hemorrhoid Morbid obesity Encounter for pre-operative examination History of colon cancer 1996 - treated surgically Stomach ulcer Hx Sleep apnea CPAP (occasional use) Hyperlipidemia No meds Anemia DJD HTN PHIL Thrombocytosis NIDDM Exercise / Class Metabolic Activity III < 4 Walking/Shop/Light housework Past Family History Family History Brother Family history of diabetes mellitus Mother Family hx of colon cancer Father Prostate cancer Uncle Prostate cancer Past Surgical History Surgical History Status post total left knee replacement Status post right knee replacement History of appendectomy History of umbilical hernia repair History of rectal polypectomy History of arthroscopy of left shoulder History of arthroscopy of left knee History of repair of rotator cuff Left History of total knee replacement Right History of tonsillectomy History of appendectomy H/O splenectomy x2 s/p accident History of colonoscopy Colonoscopy (06/06/22): MAC at [facility] History of esophagogastroduodenoscopy (EGD) History of bowel resection 1996 Past Anesthesia History No Hx of Anesthesia Complications and No Family Hx of Anesthesia Complications History of PONV No Hx of PONV and No Hx of Motion Sickness Social History Smoking Status: Never smoker tobacco type: smokeless tobacco Do You Dip or Chew Tobacco: Yes (1 can every 2-3 days, advised none DOS) Hx Alcohol Use: Yes Alcohol type: beer alcohol intake frequency: holidays/special occasions only Hx Substance Use: No substance use type: does not use Physical Exam Vital Signs Last Vital Signs Temp 36.8 C 07/02/24 12:23 Pulse 69 07/02/24 13:09 Resp 18 07/02/24 12:55 BP 120/81 07/02/24 12:55 Pulse Ox 95 07/02/24 12:55 O2 Del Method Room Air 07/02/24 12:55 Testing Laboratory Results 07/02/24 12:37 07/02/24 12:37 Electrocardiogram Date: 06/05/24 Findings: + ST @ (@ 109 w/ 1st degree AVB;LAD;? infer. infarct,age ?) Chest X-Ray Date: 06/05/24 Findings: + NAD Echocardiogram Date: 11/05/23 EF: 60% LV Function: normal RWMA: + none Other Findings: + LVH (mild) and + diastolic dysfunction (Grade 1) Valvular Disease: + MR (mild) Focal thickening of basal septum w/o evidence of LVOT obstruction Other Testing 11/05/2023-Carotid U/S-no H/D sig. stenosis
[2024-07-02 13:55] LABS: Amylase 32 U/L (25-115); Lipase 41 U/L (11-82)
[2024-07-02] MEDS ORDERED: ONDANSETRON INJ 2 MG/ML 2 ML VIAL ONE (13:59)
[2024-07-02] MEDS ORDERED: PROPOFOL IV EMULSION 10 MG/ML 20 ML VIAL IV ONE ×2 (13:59→14:16)
[2024-07-02] MEDS ORDERED: DEXAMETHASONE SOD INJ 4 MG/ML VIAL ONE (13:59)
[2024-07-02] MEDS ORDERED: LIDOCAINE 2% 2 ML VIAL/AMP(20MG/ML) INFIL ONE (13:59)
[2024-07-02] MEDS ORDERED: ATROPINE SULFATE 0.1 MG/ML 10ML SYR IV PRN (14:05)
[2024-07-02] MEDS ORDERED: ePHEDrine sulfate 50 MG/ML AMP IV PRN (14:05)
[2024-07-02] MEDS ORDERED: FLUMAZENIL 0.1 MG/1 ML 10 ML VIAL IV PRN (14:05)
[2024-07-02] MEDS ORDERED: ONDANSETRON INJ 2 MG/ML 2 ML VIAL IV PRN (14:05)
[2024-07-02] MEDS ORDERED: DROPERIDOL 5 MG/2 ML VIAL IV PRN (14:05)
[2024-07-02] MEDS ORDERED: NALOXONE HCL 0.4 MG/1 ML VIAL/CARP IV PRN (14:05)
[2024-07-02] MEDS ORDERED: fentaNYL citrate PF 100 MCG/2 ML VIAL IV PRN (14:05)
[2024-07-02] MEDS ORDERED: LABETALOL HCL IV 5 MG/ML 20ML IV PRN (14:05)
[2024-07-02] MEDS ORDERED: fentaNYL citrate PF 100 MCG/2 ML VIAL ONE (14:14)
--- NOTE | 2024-07-02 14:18 | History & Physical Report ---
Date of Service July 02, 2024 Assessment & Plan (1) Calculus of proximal right ureter: Plan: Management per urology with ureteral stent insertion (2) Urinary tract infection: Plan: Possible diagnosis with chills at home Ceftriaxone 1 g IV daily pending urine culture (3) Elevated transaminase level: Plan: Mildly elevated in the setting of suspected infection, repeat with a.m. labs Consider workup for JAMES as outpatient if remains elevated (4) Type 2 diabetes mellitus with proteinuria: Plan: Consult pharmacy for glycemic control during inpatient admission due to high insulin requirements, given he took Lantus this morning no need for further basal dosing today therefore will defer this to pharmacy tomorrow NovoLog: --Goal BSG Range: Low 110 mg/dL, High 140 mg/dL --Correction Factor: 25 mg/dL/unit --Carbohydrate ratio = 7 g/unit --BSGs ACHS if eating, q6h if npo (5) Normocytic anemia: Plan: Suspect from frequent recent hospitalizations and blood draws, appears to be stable from 2 days ago, repeat hemoglobin with AM labs. Recommend monitoring as outpatient and further workup if not improving Plan CHRISTOPHE - patient declines CPAP while admitted HTN - of note patient no longer taking lisinopril or diltiazem which appears to be appropriate given his current BP measurements, will continue to hold VTE prophylaxis - heparin 5000 units SQ BID Diet - T2DM Disposition - admit to [facility] Admission and Anticipated Discharge Date Admission Date: July 02, 2024 History of Present Illness Chief Complaint: Right flank pain Primary Care Provider: Jose David Davenport DO Juan Cooper is a 68 year old male who presents to the ER on advice of his urologist due to obstructing ureterolithiasis in setting of possible infection on outpatient CT scan yesterday. He reports having right flank pain but is unsure how long possibly starting 2 weeks ago but with improvement of the pain but chills last night. He was taken emergently for stent insertion by urology and the patient was seen following this. Following his ureteral stent insertion he reports resolution of his abdominal/flank pain. No dysuria, hematuria, objective fevers since admission. He reports taking his Lantus this morning. He was notably recently admitted for acute pancreatitis in May possibly secondary to a GLP-1 agonist. Initially doing better after after diagnosis but then reports having diarrhea 2 days following discharge although reports this is now clearing up. Allergies Allergy/AdvReac Type Severity Reaction Status Date / Time Aminoglycosides Allergy Severe Localized Verified 07/02/24 11:10 swelling + rash bacitracin Allergy Severe Localized Verified 07/02/24 11:10 swelling + rash codeine Allergy Severe Flushing, Verified 07/02/24 11:10 hot flashes neomycin Allergy Severe Localized Verified 07/02/24 11:10 swelling + rash polymyxin B Allergy Severe Localized Verified 07/02/24 11:10 swelling + rash cat dander Allergy Intermediate Eye Verified 07/02/24 11:10 swelling, sneezing Home Medications Medication Instructions Recorded Confirmed Type CPAP Supplies #1 ea 01/23/19 07/02/24 Rx blood sugar diagnostic (OneTouch #10 ea 02/11/19 07/02/24 History Ultra Blue Test Strip) fexofenadine 180 mg tablet 180 mg PO HS PRN Allergies 02/11/19 07/02/24 History lancets 33 gauge (OneTouch Delica #100 ea 02/11/19 07/02/24 History Lancets) betamethasone dipropionate 0.05 % 1 applic topical BID PRN Rash #60 05/19/22 07/02/24 Rx topical cream grams acetaminophen 500 mg tablet 1,000 mg PO TID PRN Pain 11/10/22 07/02/24 History (Tylenol Extra Strength) amoxicillin 500 mg capsule 2,000 mg PO DIRECTED PRN PRIOR 11/10/22 07/02/24 History TO DENTAL PROCEDURES [place] Hose #1 ea 11/20/22 07/02/24 Rx wdpmbfkdmlok-jvfo-rjtrc acid 200 1 tab PO DAILY 10/17/23 07/02/24 History mcg-lutein 137.5 mcg chewable tablet (Adult Multivitamin (w-lutein)) insulin aspart U-100 100 unit/mL 30 unit (0.3 mL) subcut AC #15 mL 06/10/24 07/02/24 Rx (3 mL) subcutaneous pen (Novolog FlexPen U-100 Insulin aspart) insulin glargine 100 unit/mL (3 90 unit (0.9 mL) subcut DAILY #15 06/10/24 07/02/24 Rx mL) subcutaneous pen (Lantus mL Solostar U-100 Insulin) pen needle, diabetic 31 gauge x #100 ea 06/11/24 07/02/24 Rx 5/16" (Comfort EZ Pen [place]) Past Med/Surg History Problem List (Updated 07/02/24 @ 23:11 by Gerhard Orozco MD) Normocytic anemia Elevated transaminase level Calculus of proximal right ureter (Acute) Abdominal pain Fever Diarrhea Urinary tract infection (Acute) Hypertriglyceridemia Viral upper respiratory infection Acute pancreatitis PHIL (acute kidney injury) Sepsis Lower respiratory infection (e.g., bronchitis, pneumonia, pneumonitis, pulmonitis) Hypertension Class 3 severe obesity with serious comorbidity and body mass index (BMI) of 40.0 to 44.9 in adult Petechiae or ecchymoses Type 2 diabetes mellitus with proteinuria Poor compliance Ventral hernia Nephrolithiasis Erectile dysfunction Microscopic hematuria Left knee DJD Proteinuria (Chronic) Hypercholesterolemia (Chronic) Obstructive sleep apnea of adult (Chronic) H/O splenectomy (Chronic) HTN (hypertension) (Chronic) Peptic ulcer disease (Chronic) Medical History History of rectal cancer Changing skin lesion Snoring Hemorrhoid Morbid obesity Encounter for pre-operative examination History of colon cancer 1996 - treated surgically Stomach ulcer Hx Sleep apnea CPAP (occasional use) Hyperlipidemia No meds Surgical History Status post total left knee replacement Status post right knee replacement History of appendectomy History of umbilical hernia repair History of rectal polypectomy History of arthroscopy of left shoulder History of arthroscopy of left knee History of repair of rotator cuff Left History of total knee replacement Right History of tonsillectomy History of appendectomy H/O splenectomy x2 s/p accident History of colonoscopy Colonoscopy (06/06/22): MAC at [facility] History of esophagogastroduodenoscopy (EGD) History of bowel resection 1996 Family History Brother Family history of diabetes mellitus Mother Family hx of colon cancer Father Prostate cancer Uncle Prostate cancer Social History Smoking Status: Former smoker Tobacco Type: Cigarettes Second Hand Exposure: Yes; Do You Dip or Chew Tobacco: Yes (1 can every 2-3 days, advised none DOS); Hx Alcohol Use: No Hx Substance Use: No Preferred Language: Setswana Communication Ability: Effective Hearing Ability: Normal Director [employer] Required: No Beliefs That Will Affect Care: None marital status: Current Living Situation: Spouse current occupational status: retired Feels Safe at Home: Yes Childhood Exposure to Second-Hand Smoke: Yes Diet: regular caffeine: No Dental Care, Regularly: Yes Physical Activity Frequency: Daily Seatbelt Use: always Sunscreen Use: Yes Assistive Devices: Cane Review of Systems Review of Systems: All systems reviewed & are unremarkable except as noted in HPI & below Physical Exam Constitutional: WD/WN, vitals as above ENMT: external ear and nose normal, oropharynx normal Respiratory: normal respiratory effort, lungs clear to auscultation Cardiovascular: Rate/Rhythm: regular rate and regular rhythm Heart Sounds: + murmur (Apical) Gastrointestinal (Abdomen): normal bowel sounds, soft, nontender, no hepatosplenomegaly Musculoskeletal: no cyanosis or clubbing, extremities motor strength 5/5 Skin: no rashes, warm and dry Neurologic: moves all extremities and awake; no focal motor deficits and not confused Psychiatric: A+Ox3, euthymic affect Genitourinary: no CVA tenderness Results & Data Results & Data Vital Signs (Past 12 Hours) Vital Signs Temp Pulse Pulse Resp BP BP Pulse Ox 07/02/24 13:09 69 07/02/24 12:55 64 18 120/81 95 07/02/24 12:23 36.8 C 80 18 137/83 95 O2 Del Method 07/02/24 13:09 07/02/24 12:55 Room Air 07/02/24 12:23 Room Air Laboratory Results Abnormal lab results 07/02/24 07/02/24 07/02/24 Range/Units 12:37 13:48 14:06 WBC 26.69 H (4.8-10.8) K/ul RBC 3.61 L (4.70-6.10) M/uL Hgb 10.2 L (14.0-18.0) g/dl Hct 30.7 L (42.0-52.0) % Plt Count 705 H (130-400) K/uL Neut # (Auto) 20.66 H (1.40-6.50) K/uL Morris # (Auto) 1.35 H (0.11-0.59) K/uL Eos # (Auto) 0.98 H (0.00-0.50) K/uL Immature Gran # (Auto) 1.26 H (0.01-0.20) K/uL Platelet Estimate Increased H (Normal) Sodium 131 L (136-145) mmol/L Potassium 3.3 L (3.5-5.1) mmol/L BUN 29 H (6-23) mg/dl Creatinine 1.54 H (0.6-1.4) mg/dl Glucose 151 H (70-99(Fasting)) mg/dl POC Glucose (70-99) mg/dl Calcium 8.1 L (8.6-10.3) mg/dl AST 64 H (13-39) U/L ALT 59 H (7-52) U/L Alkaline Phosphatase 150 H (34-104) U/L Albumin 2.7 L (3.4-5.0) gm/dl Albumin/Globulin Ratio 0.7 L (0.9-2) Urine Protein 2+ H (Negative) Urine Ketones Trace H (Negative) Urine Blood 2+ H (Negative) Ur Leukocyte Esterase 1+ H (Negative) Urine WBC (Auto) 11-20 H (0-5) /hpf Urine RBC (Auto) 6-10 H (0-2) /hpf U Hyaline Cast (Auto) 3-5 H (0-2) /lpf 07/02/24 07/02/24 07/02/24 Range/Units 14:20 15:18 17:29 WBC (4.8-10.8) K/ul RBC (4.70-6.10) M/uL Hgb (14.0-18.0) g/dl Hct (42.0-52.0) % Plt Count (130-400) K/uL Neut # (Auto) (1.40-6.50) K/uL Morris # (Auto) (0.11-0.59) K/uL Eos # (Auto) (0.00-0.50) K/uL Immature Gran # (Auto) (0.01-0.20) K/uL Platelet Estimate (Normal) Sodium (136-145) mmol/L Potassium (3.5-5.1) mmol/L BUN (6-23) mg/dl Creatinine (0.6-1.4) mg/dl Glucose (70-99(Fasting)) mg/dl POC Glucose 122 H 111 H 111 H (70-99) mg/dl Calcium (8.6-10.3) mg/dl AST (13-39) U/L ALT (7-52) U/L Alkaline Phosphatase (34-104) U/L Albumin (3.4-5.0) gm/dl Albumin/Globulin Ratio (0.9-2) Urine Protein (Negative) Urine Ketones (Negative) Urine Blood (Negative) Ur Leukocyte Esterase (Negative) Urine WBC (Auto) (0-5) /hpf Urine RBC (Auto) (0-2) /hpf U Hyaline Cast (Auto) (0-2) /lpf Diagnostic Findings CT OF THE ABDOMEN AND PELVIS WITHOUT CONTRAST CLINICAL HISTORY: R50.9 - Fever, unspecified COMPARISON STUDY: CT of the abdomen and pelvis June 05, 2024. TECHNIQUE: Axial images of the abdomen and pelvis were obtained without IV contrast. Images were reviewed in the axial, sagittal, and coronal planes. Automated exposure control was utilized for the study. A dose lowering technique was utilized adhering to the principles of ALARA. FINDINGS: Small tree-in-bud nodules within the lower lungs are new since prior CT. No pneumatosis, free air or portal venous gas is present. A 1.1 cm right ureteropelvic junction calculus results in mild right hydronephrosis with perinephric stranding. This calculus was within the right kidney on prior CT. There are no additional ureteral calculi. There is a 1.1 cm right renal calculus. There are no left hydronephrosis. Water attenuation left renal lesions favor cysts. There are multiple gallstones within the gallbladder. A normal- appearing spleen is not identified. There are several splenules within the left upper quadrant. Peripancreatic stranding and fluid has improved since prior exam. There is no peripancreatic fluid collection. No evidence for a bowel obstruction. Rectosigmoid anastomosis is present. There is colonic diverticulosis. No evidence for acute diverticulitis. Ventral hernia contains a small bowel loop without resultant bowel obstruction. There are multiple small fat-containing ventral hernias as well. IMPRESSION: 1. 1.1 cm right ureteropelvic junction calculus which results in mild hydronephrosis with perinephric stranding. 2. Right nephrolithiasis. 3. Peripancreatic stranding and fluid which has improved since prior exam. This favors resolving pancreatitis. A follow-up abdominal CT in 3 months to ensure complete resolution is recommended. No peripancreatic fluid collection. 4. No bowel obstruction. 5. Cholelithiasis. Medications Administered ER medications given: Acetaminophen 1000 mg IV Ondansetron 4 mg IV Normal saline 1000 mg IV Code Status & VTE Plan Code Status Full VTE Prophylaxis Plan VTE Prophylaxis will be ordered: Yes PG Care Time/CCT Total # of Minutes Spent Total Time Spent with Patient: Total time spent is greater than 50% in coordination of care (as documented) at patient's floor/unit and/or counseling patient: Coding Level of Care Code 86166 INT INP/OBS CARE 255MIN Diagnoses Calculus of proximal right ureter N20.1 Urinary tract infection N39.0 Elevated transaminase level R74.01 Type 2 diabetes mellitus with proteinuria E11.29; R80.9 Normocytic anemia D64.9
[2024-07-02 14:25] LABS: Appearance Urine Clear (Clear); Bacteria Urine Automated None Seen (None Seen); Bilirubin Urine Negative (Negative); Blood Urine 2+ (Negative); Color Urine Dark Yellow; Epithelial Cell Urine Auto 0-2 /hpf (0-2); Glucose Urine UA Negative (Negative); Ketones Urine Trace (Negative); Leukocyte Esterase Urine 1+ (Negative); Nitrite Urine Negative (Negative); Protein Urine 2+ (Negative); Specific Gravity Urine 1.018 (1.000-1.030); Urobilinogen Urine Negative (Negative); pH Urine 5.5 (4.5-7.5)
[2024-07-02] MEDS: LACTATED RINGER'S 1,000 ML IV SCH (14:30)
[2024-07-02] MEDS: ceFAZolin 2000MG 2,000 MG/15 ML SYR IV SCH (14:48)
[2024-07-02 14:56] LABS: Potassium 3.3 mmol/L (3.5-5.1)
[2024-07-02] MEDS: DIATRIZOATE MEGLUMINE 30% 100ML VIAL INSTIL SCH (15:05)
--- NOTE | 2024-07-02 15:10 | Operative Report ---
PG Post Operative Report Pre & Post Diagnosis Right urolithiasis Operation Date: 07/02/24 10:00 <No data on this case meets the specified criteria> Right urolithiasis I identified the patient and participated in the time-out.: Yes Procedure Operation Date: 07/02/24 10:00 Actual Procedures p Cystoscopy, Right Retrograde Pyelogram with radiographic interpretation, Right Ureteral Stent Placement(Right) - Wes Torres MD Surgeon Wes Torres MD Cap Coverer None Estimated Blood Loss 0 Findings See Below Mild bulbar urethral stricture Retrograde showed moderate hydronephrosis Stent in appropriate position Specimens None Drains 6 Tristanian by 26 cm right ureteral stent Anesthesia Type MAC Complications none Indications 68-year-old male sent over from clinic with a right obstructing ureteral calculus and concerns for infection. He has a baseline elevated leukocytosis but it was slightly higher at 26. Reported chills at home. Description of Procedure After informed consent was obtained, the patient was transported operative suite. MAC anesthesia was induced. The patient was placed in dorsolithotomy position prepped and draped in a sterile fashion. They received preoperative Ancef for antibiotic prophylaxis. An appropriate surgical timeout was performed. A 22 Tristanian rigid scope was inserted per urethra into the bladder. He had a mild bulbar urethral stricture that did accommodate the scope. Holder cystoscopy revealed no stones or lesions. I turned my attention the right ureteral orifice and intubated this with a 5 Tristanian open-ended catheter. A right retrograde pyelogram was shot which showed moderate hydronephrosis. A sensor wire was advanced into the kidney and confirmed fluoroscopically. A 6 Tristanian by 26 cm right ureteral stent was deployed with a good proximal coil in the renal pelvis and a good distal coil noted in the bladder, confirmed fluoroscopically and under direct visualization, respectively. The bladder was emptied and the scope was removed. This concluded the end of the case. All counts were correct at the end of the case. I was present, scrubbed, and actively participated for the entirety of the procedure. I attest to the content of the Intraoperative Record and any orders documented therein. Any exceptions are noted below.
[2024-07-02] MEDS: cefTRIAXone SODIUM 2,000 MG/50 ML BAG IV STA (15:23)
--- NOTE | 2024-07-02 15:35 | Anesthesiology Progress Note ---
Date of Service July 02, 2024 Anesthesia Post Procedure Vital Signs Vital Signs: Temp Pulse Pulse Resp BP BP BP 07/02/24 15:25 56 L 17 109/65 07/02/24 15:16 36 C L 70 15 106/59 L 07/02/24 14:22 37 C 62 20 111/50 L 07/02/24 13:09 69 07/02/24 12:55 64 18 120/81 07/02/24 12:23 36.8 C 80 18 137/83 Pulse Ox O2 Del Method O2 Flow Rate 07/02/24 15:25 98 Oxymask 9 07/02/24 15:16 97 Oxymask 9 07/02/24 14:22 95 Room Air 07/02/24 13:09 07/02/24 12:55 95 Room Air 07/02/24 12:23 95 Room Air Pain Intensity Bilateral Lower Abdomen: Pain Intensity: 4 Transfer of Care Handoff Completed per policy Notes Mental Status: alert / awake / arousable Patient Amnestic to Procedure: Yes Nausea / Vomiting: adequately controlled Pain: adequately controlled Airway Patency, RR, SpO2: stable & adequate BP & HR: stable & adequate Hydration State: stable & adequate Anesthetic Complications: no major complications apparent
--- NOTE | 2024-07-02 16:14 | Fluoroscopy Report ---
FL retrograde includes kub CLINICAL HISTORY: CYSTO STENT COMPARISON STUDY: CT of the abdomen and pelvis July 01, 2024. FLUOROSCOPY TIME: 12 seconds. Ka,r: 6.42 mGy FLUOROSCOPIC IMAGES: 3 FINDINGS: Fluoroscopy was provided during right retrograde pyelogram and right ureteral stent placeme nt. IMPRESSION: Fluoroscopy provided during right retrograde pyelogram and right ureteral stent placemen t. ACT 112: Negative or not required by law. Electronically signed by: Anshu Luong M.D. 07/02/2024 4:12 PM
[2024-07-02] MEDS ORDERED: PHARMACY GLYCEMIC MGMT CONSULT PRN (19:36)
[2024-07-02] MEDS ORDERED: GLUCAGON FOR INJ 1 MG VIAL SQ PRN (19:37)
[2024-07-02] MEDS ORDERED: CARBOHYDRATES FOR HYPOGLYCEMIA PO PRN (19:37)
[2024-07-02] MEDS ORDERED: DEXTROSE 50% 50 ML SYRINGE IV PRN (19:37)
[2024-07-02] MEDS ORDERED: GLUCOSE 10 TAB/TUBE PO PRN (19:37)
[2024-07-02] MEDS ORDERED: GLUCOSE 40% GEL 15 GM TUBE PO PRN (19:37)
[2024-07-02] MEDS: INSULIN ASPART PER UNIT CHARGE SC SCH (20:36)
[2024-07-02] MEDS: HEPARIN SOD 5,000 UNIT/0.5 ML VIAL SQ SCH (20:36)
[2024-07-02] MEDS: POTASSIUM CHLORIDE CRTAB 20 MEQ TABCR PO STA (20:36)
[2024-07-02] MEDS: SODIUM CHLORIDE 0.9% 1,000 ML IV SCH (20:36)
[2024-07-03 06:41] LABS: Basophils # (auto) 0.13 K/uL (0.00-0.20); Basophils % (auto) 0.5 %; Eosinophils # (auto) 0.94 K/uL (0.00-0.50); Eosinophils % (auto) 3.8 %; Hematocrit (blood only) 27.9 % (42.0-52.0); Hemoglobin 9.2 g/dl (14.0-18.0); Immature Granulocytes # (auto) 1.15 K/uL (0.01-0.20); Immature Granulocytes % (auto) 4.7 %; Lymphocytes # (auto) 2.32 K/uL (1.20-3.40); Lymphocytes % (auto) 9.5 %; Mean Corpuscular Hemoglobin 28.5 pg (25.0-34.0); Mean Corpuscular Volume 86.4 fL (80.0-100.0); Mean Platelet Volume 10.9 fL (9.4-12.4); Monocytes # (auto) 1.52 K/uL (0.11-0.59); Monocytes % (auto) 6.2 %; Neutrophils # (auto) 18.38 K/uL (1.40-6.50); Neutrophils % (auto) 75.3 %; Platelet Count 699 K/uL (130-400); RDW Coefficient of Variation 14.5 % (11.5-14.5); RDW Standard Deviation 45.3 fL (36.4-46.3); Red Blood Count 3.23 M/uL (4.70-6.10); White Blood Count 24.44 K/ul (4.8-10.8)
[2024-07-03 07:00] LABS: Albumin Globulin Ratio 0.7 (0.9-2); Albumin Level 2.3 gm/dl (3.4-5.0); Bilirubin,Total 0.5 mg/dl (0.2-1.0); Calcium 7.7 mg/dl (8.6-10.3); Creatinine Clr Calc Pharmacy 71.1 ml/min; Globulin 3.4 gm/dl (2.5-4.0); Potassium 3.5 mmol/L (3.5-5.1); Total Protein 5.7 gm/dl (6.0-8.3)
[2024-07-03] MEDS ORDERED: oxyBUTYnin chloride 5 MG TAB PO PRN (08:00)
[2024-07-03] MEDS ORDERED: PHENAZOPYRIDINE HCL 100 MG TAB PO PRN (08:00)
--- NOTE | 2024-07-03 08:05 | Urology Progress Note ---
Date of Service July 03, 2024 Assessment & Plan (1) Calculus of proximal right ureter: (2) PHIL (acute kidney injury): Plan Tolerating right ureteral stent with no significant issues, urinary frequency is to be expected No plan for additional stone interventions during this admission Creatinine improving with stent in place Will await final culture results, and anticipate treating with a course of antibiotics, although this can hopefully be done largely as an outpatient. Urology will coordinate additional outpatient follow-up for stone treatment. Admission and Anticipated Discharge Date Admission Date: July 02, 2024 Subjective Feeling better this morning with ureteral stent in place Not having any significant pain or issues from the stent, although does have increased urinary frequency Tolerating a diet with no nausea or vomiting, ambulating without any issues Ongoing leukocytosis (WBC 24.4). Creatinine improved (1.2 down from 1.5) Amylase and lipase from 07/02 within normal limits. Urinalysis with 1+ leukocyte esterase, no bacteria seen. Urine and blood cultures still pending. Remains on ceftriaxone for antibiotic coverage. Denies any fevers or chills overnight Physical Exam Physical Exam: Seated at the bedside, tolerating breakfast Results & Data Vital Signs (Past 12 Hours) Vital Signs Temp Pulse Resp BP Pulse Ox O2 Del Method 07/03/24 07:09 37.1 C 69 16 129/78 95 Room Air 07/03/24 04:00 36.4 C L 67 18 123/74 95 Room Air 07/03/24 00:13 37.4 C 94 H 18 130/76 96 Room Air PG Care Time/CCT Total # of Minutes Spent Total Time Spent with Patient: Total time spent is greater than 50% in coordination of care (as documented) at patient's floor/unit and/or counseling patient: Coding Level of Care Code 54928 SUB INP/OBS CARE 235MIN Diagnoses Calculus of proximal right ureter N20.1 PHIL (acute kidney injury) N17.9
--- NOTE | 2024-07-03 08:06 | Hospitalist Progress Note ---
Date of Service July 03, 2024 Assessment & Plan (1) Calculus of proximal right ureter: Plan: Management per urology with ureteral stent insertion for concerns right obstructing ureteral calculus and concerns for infection with chills at home s/p Cystoscopy, Right Retrograde Pyelogram with radiographic interpretation, Right Ureteral Stent Placement(Right) - Wes Torres MD 07/02 -Per OP report, mild bulbar urethral stricture, no stones or lesions. Pyelogram showed moderate hydro on the right and stent placed -Reported improvement in abdominal pain/flank pain following stent insertion Ceftriaxone IV continued WBC 26k--> 24k Hgb 9.2 but was given 1L NS bolus, 1L NS @ 125cc/hr and suspect some aspect of dilution Cr 1.54--> 1.21, off lisinopril as well as noted below Urine/blood cultures pending -- follow up Flomax QAM started, added Pyridium/oxybutynin prn pain/stent discomfort Heparin SQ for DVT proph, monitor to hold if issues PT eval placed, hopeful dc in AM Discussed w/ urology and can continue PO course at dc until definitive stone treatment undertaken 2-3 wks (2) Urinary tract infection: Plan: Suspected infected stone, chills at home Ceftriaxone IV continued, f/u urine cx (3) Elevated transaminase level: Plan: Mildly elevated in the setting of suspected infection, repeat with a.m. labs --> TB wnl, AST 64--> 55, ALT normalized. ALP 150--147 Monitor in AM, Consider workup for JAMES as outpatient if remains elevated (4) Type 2 diabetes mellitus with proteinuria: Plan: A1c 6.6, on insulin Pharmacy management, glycemic consult. BSGs acceptable/monitor (5) Normocytic anemia: Plan: Suspect from frequent recent hospitalizations and blood draws, appears to be stable from 2 days ago, repeat hemoglobin with AM labs. Recommend monitoring as outpatient and further workup if not improving Iron studies obtained, low iron/trans % sat. Ferritin elevated likely 2nd to acute phase reactant/infection as above. TSH wnl Consider Venofer IV in AM given low iron/trans % sat Notable w/ pancreatitis last month, elevated TRG. Imaging at that time w/ recs for repeat CTAP 3 months as discussed w/ patient. Plan CHRISTOPHE - patient declines CPAP while admitted HTN - of note patient no longer taking lisinopril or diltiazem which appears to be appropriate given his current BP measurements, will continue to hold. BP 129/78 and will monitor off such DVT proph: heparin SQ (lovenox deferred given PHIL) Dispo: continued inpatient stay on abx/monitoring urine cx. Plan for dc 07/04 with ongoing abx until definitive tx stone w/ urology *Note, will need 3month follow up abdominal CT to ensure complete reolution in peripancreatic stranding. Note cholelithiasis on CTAP and should monitor Admission and Anticipated Discharge Date Admission Date: July 02, 2024 Supervising Physician Co-Signing Physician Notes The patient was not seen by me. The chart was reviewed. Case discussed with IRIS Lozano. Agree with assessment and plan Subjective Eval this morning, feeling better Some R CVA discomfort, on abx, urine cx pending. Was hopeful for dc but discussed wanting to make sure urine cx back and can plan for dc in AM. Will need to touch base w/ urology about conitnued abx at dc until definitive stone tx if concerns for infection from such (patient reports they were planning outpt f/u for laser tx in 2-3 weeks). No CP/SOB, +BS on exam. No BM reported. Discussed prior admission w/ recs for repeat CTAP in 3 wks to ensure resolution and will ensure PCP notified if not already. Questions/concerns addressed at this time. Plans for dc in AM once cxs final. Physical Exam 2 Physical Exam: General: 68yo male sitting up in bed, NAD, reports feeling better Head atraumatic, normocephalic, mmm, trachea midline Resp: even/unlabored, no overt wheezing/rales, on room air CV: RRR, no significant m/r/g, no pitting edema/calf tenderness GI: +BS throughout, slight distension, no overt tenderness/guarding : no peterson, +R CVA tenderness MSK/Neuro: nonfocal, not confused, answering questions appropriately Psych: AOx3, cooperative with exam Results & Data Results & Data Vital Signs (Past 12 Hours) Vital Signs Temp Pulse Resp BP Pulse Ox O2 Del Method 07/03/24 07:09 37.1 C 69 16 129/78 95 Room Air 07/03/24 04:00 36.4 C L 67 18 123/74 95 Room Air 07/03/24 00:13 37.4 C 94 H 18 130/76 96 Room Air Laboratory Results 07/03/24 06:21 07/03/24 06:21 Mag 2.0 Iron 15, TIBC 141, Transferrin 101, Trans % 11L, ferritin 734 Folate 8.18 B12 579 TSH 1.24 Diagnostic Findings Retrograde Pyelogram 07/02/24 00:00 FL retrograde includes kub CLINICAL HISTORY: CYSTO STENT COMPARISON STUDY: CT of the abdomen and pelvis July 01, 2024. FLUOROSCOPY TIME: 12 seconds. Ka,r: 6.42 mGy FLUOROSCOPIC IMAGES: 3 FINDINGS: Fluoroscopy was provided during right retrograde pyelogram and right ureteral stent placement. IMPRESSION: Fluoroscopy provided during right retrograde pyelogram and right ureteral stent placement. ACT 112: Negative or not required by law. Electronically signed by: Anshu Luong M.D. 07/02/2024 4:12 PM PG Care Time/CCT Total # of Minutes Spent Total Time Spent with Patient: Total time spent is greater than 50% in coordination of care (as documented) at patient's floor/unit and/or counseling patient: Coding Level of Care Code 39128 SUB INP/OBS CARE 3/50MIN Diagnoses Calculus of proximal right ureter N20.1 Urinary tract infection N39.0 Elevated transaminase level R74.01 Type 2 diabetes mellitus with proteinuria E11.29; R80.9 Normocytic anemia D64.9
[2024-07-03 08:59] LABS: Thyroid Stimulating Hormone 1.247 uIu/ml (0.300-4.500)
[2024-07-03] MEDS: TAMSULOSIN HCL 0.4 MG CAP PO SCH (09:00)
[2024-07-03 09:03] LABS: Ferritin 734.2 ng/ml (8-388)
[2024-07-03 09:32] LABS: Folate (Folic Acid),Ser orPlas 8.18 ng/ml (>5.38)
--- NOTE | 2024-07-03 09:32 | Pharmacy Report ---
Pharmacy Glycemic Short Note 2 - Date of Service July 03, 2024 - Glycemic Short BSG Results (Last 24 hours): 07/02/24 07/02/24 07/02/24 12:37 14:20 15:18 Glucose 151 H POC Glucose 122 H 111 H 07/02/24 07/03/24 07/03/24 17:29 06:21 07:33 Glucose 114 H POC Glucose 111 H 117 H OUTPATIENT ANTIDIABETIC REGIMEN: * Lantus 90 units SQ daily * Insulin aspart 30 units before meals HbA1c: 12.6% on 06/30/24 ASSESSMENT: * 68 year old male admitted 07/02 for obstructing calculus of the proximal right ureter. Pharmacy was consulted for glycemic management while he is admitted d ue to high insulin requirements outpatient. * POD#1 cystoscopy. Patient received 4mg iv dexamethasone preop yesterday. * Patient reportedly received 90 units of Lantus prior to admission yesterday. BSG on admit was 151mg/dL, at dinner time was 122mg/dL, and at bedtime was 111mg/dL with no further insulin given. * Fasting BSG was 117mg/dl this morning and 120mg/dl at lunch. Weight based bolus insulin with a stress of 2 was initiated. Lantus 20 units SQ x 1 was ordered for tonight. Will reassess basal dose tomorrow morning. PLAN FOR INPATIENT GLYCEMIC CONTROL: * Hold outpatient diabetes medications * Basal insulin * Lantus 20 units SQ x 1 at HS, will reassess dose 2 AM * Bolus insulin * NovoLog per scale ACHS or Q6hrs while NPO * Goal Range: Low 110 mg/dL - High 140 mg/dL * Correction Factor: 25 mg/dL/unit * Nutritional / Prandial insulin per carb ratio of 1 unit per 7 grams CHO consumed
[2024-07-03] MEDS: cefTRIAXone SODIUM 2,000 MG/50 ML BAG IV SCH (14:16)
[2024-07-03] MEDS: DOCUSATE SODIUM 100 MG CAP PO SCH (14:16)
[2024-07-03] MEDS: LANTUS PER UNIT CHARGE SC SCH (20:28)
[2024-07-04 08:05] VITALS: BP 140/84; PULSE 62; RESP 18; TEMP 98.1; O2SAT 95
--- NOTE | 2024-07-04 08:19 | Hospitalist Progress Note ---
Date of Service July 04, 2024 Assessment & Plan (1) Calculus of proximal right ureter: Plan: Management per urology with ureteral stent insertion for concerns right obstructing ureteral calculus and concerns for infection with chills at home s/p Cystoscopy, Right Retrograde Pyelogram with radiographic interpretation, Right Ureteral Stent Placement(Right) - Wes Torres MD 07/02 -Per OP report, mild bulbar urethral stricture, no stones or lesions. Pyelogram showed moderate hydro on the right and stent placed -Reported improvement in abdominal pain/flank pain following stent insertion Ceftriaxone IV continued WBC 26k--> 24k Hgb 9.2 but was given 1L NS bolus, 1L NS @ 125cc/hr and suspect some aspect of dilution Cr 1.54--> 1.21, off lisinopril as well as noted below Urine/blood cultures pending -- follow up Flomax QAM started, added Pyridium/oxybutynin prn pain/stent discomfort Heparin SQ for DVT proph, monitor to hold if issues PT eval placed, hopeful dc in AM Discussed w/ urology and can continue PO course at dc until definitive stone treatment undertaken 2-3 wks 07/04 (2) Urinary tract infection: Plan: Suspected infected stone, chills at home Ceftriaxone IV continued, f/u urine cx (3) Elevated transaminase level: Plan: Mildly elevated in the setting of suspected infection, repeat with a.m. labs --> TB wnl, AST 64--> 55, ALT normalized. ALP 150--147 Monitor in AM, Consider workup for JAMES as outpatient if remains elevated (4) Type 2 diabetes mellitus with proteinuria: Plan: A1c 6.6, on insulin Pharmacy management, glycemic consult. BSGs acceptable/monitor (5) Normocytic anemia: Plan: Suspect from frequent recent hospitalizations and blood draws, appears to be stable from 2 days ago, repeat hemoglobin with AM labs. Recommend monitoring as outpatient and further workup if not improving Iron studies obtained, low iron/trans % sat. Ferritin elevated likely 2nd to acute phase reactant/infection as above. TSH wnl Consider Venofer IV in AM given low iron/trans % sat Notable w/ pancreatitis last month, elevated TRG. Imaging at that time w/ recs for repeat CTAP 3 months as discussed w/ patient. Plan CHRISTOPHE - patient declines CPAP while admitted HTN - of note patient no longer taking lisinopril or diltiazem which appears to be appropriate given his current BP measurements, will continue to hold. BP 129 /78 and will monitor off such DVT proph: heparin SQ (lovenox deferred given PHIL) Dispo: continued inpatient stay on abx/monitoring urine cx. Plan for dc 07/04 with ongoing abx until definitive tx stone w/ urology *Note, will need 3month follow up abdominal CT to ensure complete reolution in peripancreatic stranding. Note cholelithiasis on CTAP and should monitor Admission and Anticipated Discharge Date Admission Date: July 02, 2024 Results & Data Results & Data Vital Signs (Past 12 Hours) Vital Signs Temp Pulse Pulse Resp BP Pulse Ox O2 Del Method 07/04/24 08:02 36.7 C 62 18 140/84 95 Room Air 07/04/24 07:00 36.6 C 56 L 16 138/77 93 Room Air 07/03/24 21:00 Room Air PG Care Time/CCT Total # of Minutes Spent Total Time Spent with Patient: Total time spent is greater than 50% in coordination of care (as documented) at patient's floor/unit and/or counseling patient: Coding Diagnoses Calculus of proximal right ureter N20.1 Urinary tract infection N39.0 Elevated transaminase level R74.01 Type 2 diabetes mellitus with proteinuria E11.29; R80.9 Normocytic anemia D64.9
[2024-07-04 08:40] LABS: Hemoglobin 9.5 g/dl (14.0-18.0); Mean Corpuscular Hemoglobin 28.2 pg (25.0-34.0); Mean Corpuscular Hgb Conc 32.8 g/dL (32.0-36.0); Mean Corpuscular Volume 86.1 fL (80.0-100.0); Mean Platelet Volume 10.9 fL (9.4-12.4); Platelet Count 823 K/uL (130-400); RDW Coefficient of Variation 14.7 % (11.5-14.5); RDW Standard Deviation 46.3 fL (36.4-46.3); Red Blood Count 3.37 M/uL (4.70-6.10); White Blood Count 17.55 K/ul (4.8-10.8)
[2024-07-04 09:02] LABS: Albumin Globulin Ratio 0.7 (0.9-2); Albumin Level 2.5 gm/dl (3.4-5.0); BUN Creatinine Ratio 18.3 (10-20); Bilirubin,Total 0.5 mg/dl (0.2-1.0); Calcium 8.2 mg/dl (8.6-10.3); Creatinine Clr Calc Pharmacy 82.8 ml/min; Globulin 3.7 gm/dl (2.5-4.0); Magnesium 1.9 mg/dl (1.7-2.4); Potassium 3.7 mmol/L (3.5-5.1); Total Protein 6.2 gm/dl (6.0-8.3)
[2024-07-04 09:04] LABS: Basophils # (auto) 0.13 K/uL (0.00-0.20); Basophils % (auto) 0.7 %; Eosinophils # (auto) 0.74 K/uL (0.00-0.50); Eosinophils % (auto) 4.2 %; Immature Granulocytes # (auto) 0.96 K/uL (0.01-0.20); Immature Granulocytes % (auto) 5.5 %; Lymphocytes # (auto) 2.74 K/uL (1.20-3.40); Lymphocytes % (auto) 15.6 %; Monocytes # (auto) 1.53 K/uL (0.11-0.59); Monocytes % (auto) 8.7 %; Neutrophils # (auto) 11.45 K/uL (1.40-6.50); Neutrophils % (auto) 65.3 %; Polychromasia 1+; Target Cells 1+; Toxic Granulation 1+
--- NOTE | 2024-07-04 10:09 | Discharge Summary ---
Discharge Summary Date of Service July 04, 2024 Principal Dx & Hospital Course #1 = Principal Diagnosis (1) Calculus of proximal right ureter: Sent to ER at recommendation by urologist for recent imaging ordered by PCP which noted 1.1 cm right ureteropelvic junction calculus which results in mild hydronephrosis with perinephric stranding Reported chills at home concerning for infection along with R lower back pain/CVA tenderness on examination by me 07/03 (improved/repeat exam resolved) WBC 26k, procal 0.2. Cr 1.54 on admission NPO, IVF/abx ordered and Urology consulted s/p Cystoscopy, Right Retrograde Pyelogram with radiographic interpretation, Right Ureteral Stent Placement(Right) - Wes Torres MD 07/02 -Per OP report, mild bulbar urethral stricture, no stones or lesions. Pyelogram showed moderate hydro on the right and stent placed -Reported improvement in abdominal pain/flank pain following stent insertion Ceftriaxone IV continued while inpatient Urine cx preliminary without growth. Blood cx ngtd on preliminary but patient feeling well/afebrile, WBC improved to 17.5 prior to dc and BUN/Cr normalized to 19/1.04 Flomax daily added/continued, no need for pyridium/oxybuytnin reported Was on Heparin SQ for DVT prophylaxis Also did check Vit D w/ multiple stones in GB/renal stones and was LOW and PO replacement started/continued Discussed w/ urology given urine cx preliminary without growth and concerns for infected stone and continued abx tx at discharge until outpatient follow up for definitve stone treatment and given recent admission for pancreatitis/elevated LFTs opted against Bactrim and pref not for extended course FLQ and urology rec for Keflex which [facility] f/u [facility]rology. Discussed to monitor for any increased diarrhea/concerns for cidff or worsening status to return to ER> Did also discuss/note imaging w/ improvement in pancreatitis on admission/no significant epigastric discomfort and should have repeat CTAP in 3 months to ensure resolution. Note platelets elevated and w/ his normocytic anemia should consider further work-up as outpatient if ongoing sx despite changes above (2) Urinary tract infection: suspected however no growth on cx however as above suspect possible infected stone and abx continued as above (3) Type 2 diabetes mellitus with proteinuria: A1c 12.6, improved from 15.4 earlier this month when admitted with pancreatitis Pharmacy management, glycemic consult. BSGs acceptable and can resume home insulin at dc/DM diet. Was prior on ozempic but given pancreatitis was discontinued As above, needs CTAP 3 mo in f/u. Given fam hx colon ca and anemia rec also have pancreatitis. No jaundice appearance but would rec consideration for ERCP/EUS in f/u Can resume home regimen at dc (4) Elevated transaminase level: Mildly elevated in the setting of suspected infection, repeat with a.m. labs --> TB wnl, AST 64--> 55 -->46, ALT normalized. ALP 150--147 --> 152 Consider workup for JAMES as outpatient if remains elevated (5) Normocytic anemia: Suspect from frequent recent hospitalizations and blood draws, appears to be stable from 2 days ago, repeat hemoglobin with AM labs. Iron studies obtained, low iron/trans % sat. Ferritin elevated likely 2nd to acute phase reactant/infection as above. TSH wnl Notable w/ pancreatitis last month, elevated TRG. Imaging at that time w/ recs for repeat CTAP 3 months as discussed w/ patient. Rec consider hematology ref at dc, GI for eval as above Notes For Next Care Provider Keflex continued for concerns infected stone, blood cx ngtd at time of dc and WBC trending down/no fevers Rec consider ref to GI for possible ERCP/EUS given pancreatitis/elevated A1c to ensure no underlying issue. Ensure CTAP 3 months for resolution on pancreatitis findings otherwise but highly encourage ref to GI for f/u, additional eval Consider iron replacement, but also rec consider ref to heme/onc for normocytic anemia/thrombocytosis and family hx colon ca Medication Changes From Visit Keflex 500mg BID Flomax 0.4mg once daily Zofran prn Vitamin D PO Admission HPI Per Admitting Provider Juan Cooper is a 68 year old male who presents to the ER on advice of his urologist due to obstructing ureterolithiasis in setting of possible infection on outpatient CT scan yesterday. He reports having right flank pain but is unsure how long possibly starting 2 weeks ago but with improvement of the pain but chills last night. He was taken emergently for stent insertion by urology and the patient was seen following this. Following his ureteral stent insertion he reports resolution of his abdominal/flank pain. No dysuria, hematuria, objective fevers since admission. He reports taking his Lantus this morning. He was notably recently admitted for acute pancreatitis in May possibly secondary to a GLP-1 agonist. Initially doing better after after diagnosis but then reports having diarrhea 2 days following discharge although reports this is now clearing up. Admission Exam Per Admitting Provider Constitutional: WD/WN, vitals as above ENMT: external ear and nose normal, oropharynx normal Respiratory: normal respiratory effort, lungs clear to auscultation Cardiovascular: Rate/Rhythm: regular rate and regular rhythm Heart Sounds: + murmur (Apical) Gastrointestinal (Abdomen): normal bowel sounds, soft, nontender, no hepatosplenomegaly Musculoskeletal: no cyanosis or clubbing, extremities motor strength 5/5 Skin: no rashes, warm and dry Neurologic: moves all extremities and awake; no focal motor deficits and not confused Psychiatric: A+Ox3, euthymic affect Genitourinary: no CVA tenderness Discharge Exam General: 68yo male ambulating back from bathroom without issue, got himself dressed without assistance, reports feeling better/stable for dc, NAD Head atraumatic, normocephalic, mmm, trachea midline Resp: even/unlabored, no overt wheezing/rales, on room air CV: RRR, no significant m/r/g, no pitting edema/calf tenderness GI: +BS throughout, slight distension improved since BM this morning, no overt tenderness/guarding : no peterson, +R CVA tenderness RESOLVED MSK/Neuro: nonfocal, not confused, answering questions appropriately Psych: AOx3, cooperative with exam Discharge Plan Discharge Items Patient Disposition: Home - Self-Care Reason For Visit: UTI, OBSTRUCTING URETEROLITHIASIS Discharge Diagnosis: UTI, infected stone Condition on Discharge: Good Goals: You have been hospitalized for an urgent problem which required surgery. During your stay at [facility], we have made an effort to correct the problem that brought you to the hospital while keeping you as comfortable as possible. Surgery and medications were used to bring your condition under control and your discharge instructions will include directions for any medications you should take after leaving the hospital. Please make sure to follow the advice of your surgeon regarding follow up with the surgeon and with your primary care provider. Activity: As commented below Non-emergency contact: Primary Care Provider and Urologist Call non-emergency contact if: you have any medication questions, your symptoms worsen, your pain is not controlled, your pain is worsening, your pain is unusual for you and you have a fever Follow-up/Referrals: Donny Currie MD [Physician] - Jose David Davenport, [Primary Care Provider] - 07/11/24 2:00 pm Diet: Heart Healthy and Low Fat Addtl Attending Provider Instructions: You have been hospitalized for concerns for acute kidney injury and infection from obstructing stone. Urology was consulted and you underwent placement of stent and renal function has improved. You were treated with antibiotics but given concerns for infected stone I have discussed with urology who is arranging definitive stone treatment/lithotripsy as outpatient and will continue antibiotics until this is treated. Urine culture was negative on preliminary. Keflex 500mg BID will be continued until stone treated Vitamin D level was LOW _13.9__. Can cause more stone formation. We started you on oral supplementation and have sent to continue once daily at discharge. Please monitor for any diarrhea/8-10+ stools/yellow/foul smelling on antibiotics as they can cause cdiff (similarly anytime we use antibiotics) but are needed to treat the current infection and should alert primary care if occurs for testing/treatment. As discussed for your prior admission with pancreatitis, imaging noted improvement on admission however it is recommended you have follow up with primary care/repeat CT abdomen/pelvis in 3 months to ensure resolution. Please avoid any/alcohol during this time. Cautious use of tylenol and limit to no more than 2000mg/day. Recommend having follow up with primary care and testing liver function to ensure improving. We send a prescription for zofran for nausea as needed. If needing more frequent use or have fever/chills, inability to keep up with oral hydration please return to the ER. Please follow up with primary care in the next 7-10 days. Recommend you have repeat chemistries/liver function testing. Also consider possible colonoscopy if never done in the past. Please contact Urology office if not notified of follow up appointment in next day or two. It has been a pleasure being a part of the medical team providing for you while you have been in the hospital. Take care! Pending Studies at Discharge: Yes Studies:: Urine cx -- preliminary without growth Blood cultures -- no growth to date Stand-Alone Forms: My markedup, Smoking Cessation Medications and DC Order Prescriptions: New tamsulosin 0.4 mg Capsule 0.4 mg PO QAM Qty: 30 0RF cholecalciferol (vitamin D3) 25 mcg (1,000 unit) Capsule 25 mcg PO QAM Qty: 30 0RF cephalexin 500 mg capsule 500 mg PO BID Qty: 60 0RF Rx Instructions: take until seen by urology for stone treatment ondansetron 4 mg tablet,disintegrating 4 mg PO Q8H PRN (Reason: nausea or vomoiting) 3 Days Qty: 9 0RF Continued betamethasone dipropionate 0.05 % cream 1 applic topical BID PRN (Reason: Rash) Qty: 60 0RF fexofenadine 180 mg tablet 180 mg PO HS PRN (Reason: Allergies) yrrmawwi-nue-spvef acid-lutein [Adult Multivitamin (w-lutein)] 200-137.5 mcg tablet,chewable 1 tab PO DAILY amoxicillin 500 mg capsule 2,000 mg PO DIRECTED PRN (Reason: PRIOR TO DENTAL PROCEDURES) Rx Instructions: Take 4 capsules prior to dental appointment acetaminophen [Tylenol Extra Strength] 500 mg tablet 1,000 mg PO TID PRN (Reason: Pain) Rx Instructions: Take 3 times per day to lessen pain. insulin glargine [Lantus Solostar U-100 Insulin] 100 unit/mL (3 mL) insulin pen 90 unit subcut DAILY Qty: 15 3RF Rx Instructions: please also dispense needles for the pens insulin aspart U-100 [Novolog FlexPen U-100 Insulin] 100 unit/mL (3 mL) insulin pen 30 unit subcut AC Qty: 15 0RF Rx Instructions: please also dispense needles for pens, thanks No Action (DME) pen needle, diabetic [Comfort EZ Pen Parshall] 31 gauge x 5/16" needle See Rx Instructions .Route Qty: 100 3RF Rx Instructions: Uses QID (DME) CPAP Supplies Misc See Dose Instructions .ROUTE .MEDSUPPLY Qty: 1 0RF Dose Instruction: As directed Rx Instructions: nasal mask (DME) lancets [OneTouch Delica Lancets] 33 gauge misc See Dose Instructions .ROUTE .MEDSUPPLY Qty: 100 Rx Instructions: As directed - twice daily & as needed (DME) OneTouch Ultra Blue Test Strip strip See Dose Instructions .ROUTE .MEDSUPPLY Qty: 10 Rx Instructions: As directed - test twice daily and as needed (DME) Clinton Piña [facility] See Rx Instructions .[facility] Qty: 1 0RF Rx Instructions: As directed Discharge Orders: Discharge Order (Routine); Ordered 07/04/24 Ordered By: Kassi Hall/Other Patient Handouts: Having a Ureteral Stent Admission Data Admit Date/Time: 07/02/24 14:11 Attending Provider: Matilde Ding Admit Provider: Gerhard Orozco Primary Care Provider: Jose David Davenport Other Providers: Gerhard Orozco; Wes Torres Other Interventions: Discharge Summary Assessment (RN) Last Done: 07/04/24 10:17 Hospital Stay Data Consultations 07/02/24 14:17 ED Decision to Admit Stat 07/02/24 23:06 Consult Urology Routine Procedures Performed Operation Date: 07/02/24 10:00 Actual Procedures p Cystoscopy, Right Retrograde Pyelogram, Right Ureteral Stent Placement(Right) - Wes Torres MD Diagnostic Imagining Performed Day of admission imaging ordered by PCP on 06/30 CT OF THE ABDOMEN AND PELVIS WITHOUT CONTRAST CLINICAL HISTORY: R50.9 - Fever, unspecified COMPARISON STUDY: CT of the abdomen and pelvis June 05, 2024. TECHNIQUE: Axial images of the abdomen and pelvis were obtained without IV contrast. Images were reviewed in the axial, sagittal, and coronal planes. Automated exposure control was utilized for the study. A dose lowering technique was utilized adhering to the principles of ALARA. FINDINGS: Small tree-in-bud nodules within the lower lungs are new since prior CT. No pneumatosis, free air or portal venous gas is present. A 1.1 cm right ur eteropelvic junction calculus results in mild right hydronephrosis with perinephric stranding. This calculus was within the right kidney on prior CT. There are no additional ureteral calculi. There is a 1.1 cm right renal calculus. There are no left hydronephrosis. Water attenuation left renal lesions favor cysts. There are multiple gallstones within the gallbladder. A normal- appearing spleen is not identified. There are several splenules within the left upper quadrant. Peripancreatic stranding and fluid has improved since prior exam. There is no peripancreatic fluid collection. No evidence for a bowel obstruction. Rectosigmoid anastomosis is present. There is colonic diverticulosis. No evidence for acute diverticulitis. Ventral hernia contains a small bowel loop without resultant bowel obstruction. There are multiple small fat-containing ventral hernias as well. IMPRESSION: 1. 1.1 cm right ureteropelvic junction calculus which results in mild hydronephrosis with perinephric stranding. 2. Right nephrolithiasis. 3. Peripancreatic stranding and fluid which has improved since prior exam. This favors resolving pancreatitis. A follow-up abdominal CT in 3 months to ensure complete resolution is recommended. No peripancreatic fluid collection. 4. No bowel obstruction. 5. Cholelithiasis. ACT 112: Negative or not required by law. Electronically signed by: Anshu Luong M.D. 07/01/2024 1:26 PM Dictated: 07/01/24 1319 Transcribed: 07/01/24 1319 Retrograde Pyelogram 07/02/24 00:00 FL retrograde includes kub CLINICAL HISTORY: CYSTO STENT COMPARISON STUDY: CT of the abdomen and pelvis July 01, 2024. FLUOROSCOPY TIME: 12 seconds. Ka,r: 6.42 mGy FLUOROSCOPIC IMAGES: 3 FINDINGS: Fluoroscopy was provided during right retrograde pyelogram and right ureteral stent placement. IMPRESSION: Fluoroscopy provided during right retrograde pyelogram and right ureteral stent placement. ACT 112: Negative or not required by law. Electronically signed by: Anshu Luong M.D. 07/02/2024 4:12 PM Discharge Instructions Given to Patient (Per Discharging Provider) You have been hospitalized for concerns for acute kidney injury and infection from obstructing stone. Urology was consulted and you underwent placement of stent and renal function has improved. You were treated with antibiotics but given concerns for infected stone I have discussed with urology who is arranging definitive stone treatment/lithotripsy as outpatient and will continue antibiotics until this is treated. Urine culture was negative on preliminary. Keflex 500mg BID will be continued until stone treated Vitamin D level was LOW _13.9__. Can cause more stone formation. We started you on oral supplementation and have sent to continue once daily at discharge. Please monitor for any diarrhea/8-10+ stools/yellow/foul smelling on antibiotics as they can cause cdiff (similarly anytime we use antibiotics) but are needed to treat the current infection and should alert primary care if occurs for testing/treatment. As discussed for your prior admission with pancreatitis, imaging noted improvement on admission however it is recommended you have follow up with primary care/repeat CT abdomen/pelvis in 3 months to ensure resolution. Please avoid any/alcohol during this time. Cautious use of tylenol and limit to no more than 2000mg/day. Recommend having follow up with primary care and testing liver function to ensure improving. We send a prescription for zofran for nausea as needed. If needing more frequent use or have fever/chills, inability to keep up with oral hydration please return to the ER. Please follow up with primary care in the next 7-10 days. Recommend you have repeat chemistries/liver function testing. Also consider possible colonoscopy if never done in the past. Please contact Urology office if not notified of follow up appointment in next day or two. It has been a pleasure being a part of the medical team providing for you while you have been in the hospital. Take care! Total Time Total Time Spent Total Time Spent (In Minutes): 60 Coding Level of Care Code 94688 INP/OBS DISCH >30 MIN Diagnoses Calculus of proximal right ureter N20.1 Urinary tract infection N39.0 Type 2 diabetes mellitus with proteinuria E11.29; R80.9 Elevated transaminase level R74.01 Normocytic anemia D64.9
[2024-07-04] MEDS: CHOLECALCIFEROL 25 MCG (1000 UNITS) TAB PO SCH (10:43)
[2024-07-06 04:12] LABS: A calco-baum cmplx NotReported Not Detected (NotDetected); Bact fragilis Not Reported Not Detected (NotDetected); Blood Culture Id Panel See PCR Comment (NotDetected); C auris Not Reported Not Detected (NotDetected); Calbicans Not Reported DETECTED (NotDetected); Candida glabrata Not Reported Not Detected (NotDetected); Candida krusei Not Reported Not Detected (NotDetected); Cneoformans/gatti Not Reported Not Detected (NotDetected); Cparapsilosis Not Reported Not Detected (NotDetected); E cloacae compx Not Reported Not Detected (NotDetected); Efaecalis Not Reported Not Detected (NotDetected); Efaecium Not Reported Not Detected (NotDetected); Enterobacterales Not Reported Not Detected (NotDetected); Escherichia coli Not Reported Not Detected (NotDetected); H influenzae Not Reported Not Detected (NotDetected); K aerogenes Not Reported Not Detected (NotDetected); Koxytoca Not Reported Not Detected (NotDetected); Kpneumoniae grp Not Reported Not Detected (NotDetected); Lmonocyt Not Reported Not Detected (NotDetected); N meningitidis Not Reported Not Detected (NotDetected); P aeruginosa Not Reported Not Detected (NotDetected); Proteus spp Not Reported Not Detected (NotDetected); Salmonella spp Not Reported Not Detected (NotDetected); Staph lugdunensis Not Reported Not Detected (NotDetected); Staph spp. Not Reported Not Detected (NotDetected); Staphaureus Not Reported Not Detected (NotDetected); Staphepi Not Reported Not Detected (NotDetected); Stenmaltophilia Not Reported Not Detected (NotDetected); Strep agal(GrpB) Not Reported Not Detected (NotDetected); Strep pneum Not Reported Not Detected (NotDetected); Strep pyog (GrpA) Not Reported Not Detected (NotDetected); Strep spp Not Reported Not Detected (NotDetected)
[2024-07-06 04:19] LABS: Candida albicans DETECTED (NotDetected)
== END 2024-07-04 12:27 | disposition home or self-care (01) | DRG 659 ==
LOC: ED 12:06 → 3E 14:00 → OR 14:00 → 3E 14:11 → SUATTDRO 14:11